=== PATIENT | female | born 1970 | race Caucasian/White ===

== ENCOUNTER 2021-04-15 09:39 | Outpatient (REF) | payer BC, SELFPAY ==
--- NOTE | ~2021-04-15 | MM_ITS ---
EXAMINATION: MM SCREENING DIGITAL BREAST TOMOSYNTHESIS, BILATERAL CLINICAL INFORMATION: Screening. Asymptomatic. The lifetime risk of breast cancer based on the Tyrer-Cuzick Model is 7.7%. COMPARISON: Mammography: May 10, 2019 and May 19, 2012 TECHNIQUE: Digital breast tomosynthesis is performed in both the craniocaudal and mediolateral oblique views along with computer-aided detection (CAD). Synthesized 2D images are generated from the tomosynthesis. FINDINGS: The breasts are extremely dense, which lowers the sensitivity of mammography (ACR BI-RADS breast composition Category d). There are no significant masses, abnormal calcifications, or other abnormalities. MM/MM tomosynthesis screening BI IMPRESSION: There are no significant changes from prior study. ASSESSMENT: BI-RADS 1: Negative RECOMMENDATION: Routine annual mammography screening. This patient's information was entered into a reminder system with a target due date for their next mammogram.
== END 2021-04-15 09:40 | disposition home or self-care (01) ==
LOC: HO.MAMMO 09:39
PROVIDERS: PCP Internal Medicine; Visit Provider Internal Medicine
DX: Z12.31 Encounter for screening mammogram for malignant neoplasm of breast (principal)
CPT/HCPCS: 77063; 77067

== ENCOUNTER 2021-05-27 07:45 | Outpatient (REF) | payer BC, SELFPAY ==
[2021-05-27 10:24] LABS: MANUAL DIFF FLAG NO
[2021-05-27 10:32] LABS: Basophils Percent Auto 0.3 % (0-2); Eosinophils Absolute Auto 0.6 X10*3/uL (0.0-0.4); Eosinophils Percent Auto 8.6 % (0-4); Hematocrit 44.3 % (37-47); Hemoglobin 14.4 g/dl (12.0-16.0); Imm Gran Abs Auto 0.02 X10*3/uL (0.00-0.03); Imm Gran Pct Auto 0.3 % (0.0-0.4); Lymphocytes Absolute Auto 2.7 X10*3/uL (1.2-4.9); Lymphocytes Percent Auto 41.1 % (20-40); Mean Corpuscular HGB Conc 32.5 g/dl (31.0-35.0); Mean Corpuscular Hemoglobin 29.6 pg (27.0-33.0); Mean Corpuscular Volume 91.2 fL (80-98); Mean Platelet Volume 10.4 fL (9.4-12.3); Monocytes Absolute Auto 0.7 X10*3/uL (0.1-1.2); Monocytes Percent Auto 10.7 % (2-11); Neutrophils Absolute Auto 2.6 X10*3/uL (2.0-8.3); Platelet Count 244 X10*3/uL (160-400); Red Blood Count 4.86 X10*6/uL (4.20-5.50); Red Cell Distribution Width 12.2 % (11.0-16.0); White Blood Count 6.6 X10*3/uL (4.8-10.8)
[2021-05-27 11:28] LABS: Alanine Aminotransferase 21 U/L (0-31); Albumin Level 4.5 g/dL (3.5-5.0); Alkaline Phosphatase 100 U/L (39-117); Anion Gap 13 (12-20); Aspartate Amino Transferase 24 U/L (5-31); Bilirubin Total 0.2 mg/dL (0.0-1.0); Blood Urea Nitrogen 11 mg/dL (9-16); Calcium 9.5 mg/dL (8.4-10.2); Carbon Dioxide 27 mmol/L (22-29); Chloride 104 mmol/L (96-108); Cholesterol 225 mg/dL; Estimated Glomerular Filt Rate > 60; Glucose Fasting 89 mg/dL (60-99); HDL Cholesterol 49 mg/dL; LDL Cholesterol Calculated 160 mg/dl; Potassium 4.3 mmol/L (3.3-5.1); Sodium 140 mmol/L (135-145); Total Protein 7.8 g/dL (6.5-8.0); Triglycerides 81 mg/dL
[2021-05-27 11:42] LABS: Thyroid Stimulating Hormone 0.92 uIU/mL (0.32-4.0)
== END 2021-05-27 07:46 | disposition home or self-care (01) ==
LOC: HO.WFDLDS 07:45
PROVIDERS: Visit Provider Internal Medicine
DX: Z00.00 Encounter for general adult medical examination without abnormal findings (principal); E11.9 Type 2 diabetes mellitus without complications; E03.9 Hypothyroidism, unspecified
CPT/HCPCS: 36415; 80053; 80061; 84443; 85025

== ENCOUNTER → 2022-02-25 15:08 | Outpatient (BNVA) | payer BC, SELFPAY | PROVIDERS: PCP Internal Medicine; Visit Provider Psychiatry & Neurology Neurology | DX: G43.709 Chronic migraine without aura, not intractable, without status migrainosus (principal); R42 Dizziness and giddiness | CPT/HCPCS: 64615; J0585 ==

== ENCOUNTER 2022-04-28 09:33 | Outpatient (REF) | payer OTHER, BC, SELFPAY ==
--- NOTE | ~2022-04-28 | MM_ITS ---
EXAMINATION: MM SCREENING DIGITAL BREAST TOMOSYNTHESIS, BILATERAL CLINICAL INFORMATION: Screening. Asymptomatic. The lifetime risk of breast cancer based on the Tyrer-Cuzick Model is 10%. COMPARISON: Mammography: 04/15/2021, 05/10/2019, 05/19/2012 TECHNIQUE: Digital breast tomosynthesis is performed in both the craniocaudal and mediolateral oblique views along with computer-aided detection (CAD). Synthesized 2D images are generated from the tomosynthesis. Additional right CC view is provided. FINDINGS: The breasts are heterogeneously dense, which may obscure small masses (ACR BI-RADS breast composition Category c). There are no significant masses, abnormal calcifications, or other abnormalities. No developing density or interval architectural abnormality. No significant changes. MM/MM tomosynthesis screening BI IMPRESSION: No mammographic evidence of malignancy. ASSESSMENT: BI-RADS 1: Negative RECOMMENDATION: Routine annual mammography screening. This patient's information was entered into a reminder system with a target due date for their next mammogram.
== END 2022-04-28 09:34 | disposition home or self-care (01) ==
LOC: HO.MAMMO 09:33
PROVIDERS: Visit Provider Internal Medicine
DX: Z12.31 Encounter for screening mammogram for malignant neoplasm of breast (principal)
CPT/HCPCS: 77063; 77067

== ENCOUNTER 2022-05-16 07:45 | Outpatient (REF) | payer OTHER, BC, SELFPAY ==
[2022-05-16 11:10] LABS: MANUAL DIFF FLAG NO
[2022-05-16 11:19] LABS: Basophils Percent Auto 0.3 % (0-2); Eosinophils Absolute Auto 0.4 X10*3/uL (0.0-0.4); Eosinophils Percent Auto 6.7 % (0-4); Hematocrit 43.1 % (37.0-47.0); Hemoglobin 14.1 g/dl (12.0-16.0); Imm Gran Abs Auto 0.01 X10*3/uL (0.00-0.03); Imm Gran Pct Auto 0.2 % (0.0-0.4); Lymphocytes Absolute Auto 2.5 X10*3/uL (1.2-4.9); Lymphocytes Percent Auto 38.9 % (20-40); Mean Corpuscular HGB Conc 32.7 g/dl (31.0-35.0); Mean Corpuscular Hemoglobin 29.6 pg (27.0-33.0); Mean Corpuscular Volume 90.4 fL (80.0-98.0); Mean Platelet Volume 10.4 fL (9.4-12.3); Monocytes Absolute Auto 0.7 X10*3/uL (0.1-1.2); Monocytes Percent Auto 11.2 % (2-11); Neutrophils Absolute Auto 2.8 x10*3/uL (2.0-8.3); Neutrophils Percent Auto 42.7 % (45-73); Platelet Count 242 X10*3/uL (160-400); Red Blood Count 4.77 X10*6/uL (4.20-5.50); Red Cell Distribution Width 12.2 % (11.0-16.0); White Blood Count 6.5 X10*3/uL (4.8-10.8)
[2022-05-16 11:49] LABS: Alanine Aminotransferase 25 U/L (0-31); Albumin Level 4.6 g/dL (3.5-5.0); Alkaline Phosphatase 113 U/L (39-117); Anion Gap 14 (12-20); Aspartate Amino Transferase 26 U/L (5-31); Bilirubin Total 0.5 mg/dL (0.0-1.0); Blood Urea Nitrogen 11 mg/dL (9-16); Calcium 9.2 mg/dL (8.4-10.2); Carbon Dioxide 27 mmol/L (22-29); Chloride 104 mmol/L (96-108); Cholesterol 239 mg/dL; Estimated Glomerular Filt Rate > 60; Glucose Fasting 87 mg/dL (60-99); HDL Cholesterol 54 mg/dL; LDL Cholesterol Calculated 169 mg/dl; Potassium 4.1 mmol/L (3.3-5.1); Sodium 141 mmol/L (135-145); Total Protein 7.9 g/dL (6.5-8.0); Triglycerides 82 mg/dL
[2022-05-16 12:10] LABS: Thyroid Stimulating Hormone 1.15 uIU/mL (0.32-4.0)
== END 2022-05-16 07:46 | disposition home or self-care (01) ==
LOC: HO.WFDLDS 07:45
PROVIDERS: Visit Provider Internal Medicine
DX: I10 Essential (primary) hypertension (principal); E03.9 Hypothyroidism, unspecified; E78.5 Hyperlipidemia, unspecified; Z13.0 Encounter for screening for diseases of the blood and blood-forming organs and certain disorders involving the immune mechanism
CPT/HCPCS: 36415; 80053; 80061; 84443; 85025

== ENCOUNTER → 2022-06-24 14:51 | Outpatient (BNVA) | payer OTHER, SELFPAY | PROVIDERS: PCP Internal Medicine; Visit Provider Psychiatry & Neurology Neurology | DX: G43.709 Chronic migraine without aura, not intractable, without status migrainosus (principal); G43.119 Migraine with aura, intractable, without status migrainosus; R42 Dizziness and giddiness | CPT/HCPCS: 64615; 99211; J0585 ==

== ENCOUNTER 2022-07-23 14:49 | Outpatient (REF) | payer BC, SELFPAY ==
[2022-07-23 16:08] LABS: Influenza A PCR NEGATIVE (Negative); Influenza B PCR NEGATIVE (Negative); Resp Syncy Virus RNA Qual PCR NEGATIVE (Negative); SARS COV2 PCR INHOUSE POSITIVE (Negative)
== END 2022-07-23 14:50 | disposition home or self-care (01) ==
LOC: HO.LNP 14:49
PROVIDERS: Visit Provider Nurse Practitioner Family
DX: J06.9 Acute upper respiratory infection, unspecified (principal); Z20.822 Contact with and (suspected) exposure to COVID-19
CPT/HCPCS: 0241U

== ENCOUNTER → 2022-10-28 15:05 | Outpatient (BNVA) | payer BC, SELFPAY | PROVIDERS: PCP Internal Medicine; Visit Provider Psychiatry & Neurology Neurology | DX: G43.119 Migraine with aura, intractable, without status migrainosus (principal); R42 Dizziness and giddiness; M62.89 Other specified disorders of muscle | CPT/HCPCS: 64615; J0585 ==

== ENCOUNTER 2022-12-08 13:03 | Outpatient (REF) | payer BC, SELFPAY ==
[2022-12-13 18:53] LABS: Glutamic acid decarboxylase Ab <5 IU/mL (<5)
== END 2022-12-08 13:04 | disposition home or self-care (01) ==
LOC: HO.LAB 13:03
PROVIDERS: PCP Internal Medicine; Visit Provider Psychiatry & Neurology Neurology
DX: M62.89 Other specified disorders of muscle (principal)
CPT/HCPCS: 83520; 86341

== ENCOUNTER → 2023-01-27 15:15 | Outpatient (BNVA) | payer BC, SELFPAY | PROVIDERS: PCP Internal Medicine; Visit Provider Psychiatry & Neurology Neurology | DX: G43.709 Chronic migraine without aura, not intractable, without status migrainosus (principal); G43.119 Migraine with aura, intractable, without status migrainosus; M62.89 Other specified disorders of muscle; R42 Dizziness and giddiness | CPT/HCPCS: 64615; J0585 ==

== ENCOUNTER 2023-04-24 07:52 | Outpatient (REF) | payer BC, SELFPAY ==
[2023-04-24 11:40] LABS: MANUAL DIFF FLAG NO
[2023-04-24 11:53] LABS: Basophils Percent Auto 0.3 % (0-2); Eosinophils Absolute Auto 0.3 X10*3/uL (0.0-0.4); Eosinophils Percent Auto 5.4 % (0-4); Hematocrit 43.6 % (37.0-47.0); Imm Gran Abs Auto 0.02 X10*3/uL (0.00-0.03); Imm Gran Pct Auto 0.3 % (0.0-0.4); Lymphocytes Absolute Auto 2.4 X10*3/uL (1.2-4.9); Mean Corpuscular HGB Conc 32.1 g/dl (31.0-35.0); Mean Corpuscular Hemoglobin 29.9 pg (27.0-33.0); Mean Platelet Volume 10.5 fL (9.4-12.3); Monocytes Absolute Auto 0.7 X10*3/uL (0.1-1.2); Monocytes Percent Auto 11.1 % (2-11); Neutrophils Absolute Auto 2.6 x10*3/uL (2.0-8.3); Neutrophils Percent Auto 42.9 % (45-73); Platelet Count 232 X10*3/uL (160-400); Red Blood Count 4.69 X10*6/uL (4.20-5.50); Red Cell Distribution Width 12.1 % (11.0-16.0)
[2023-04-24 12:33] LABS: Alanine Aminotransferase 26 U/L (0-31); Albumin Level 4.4 g/dL (3.5-5.0); Alkaline Phosphatase 95 U/L (39-117); Anion Gap 12 (12-20); Aspartate Amino Transferase 27 U/L (5-31); Bilirubin Total 0.6 mg/dL (0.0-1.0); Blood Urea Nitrogen 14 mg/dL (9-16); Calcium 9.4 mg/dL (8.4-10.2); Carbon Dioxide 28 mmol/L (22-29); Chloride 104 mmol/L (96-108); Cholesterol 241 mg/dL; Estimated Glomerular Filt Rate > 60; Glucose Fasting 81 mg/dL (60-99); HDL Cholesterol 57 mg/dL; LDL Cholesterol Calculated 167 mg/dl; Potassium 3.8 mmol/L (3.3-5.1); Sodium 140 mmol/L (135-145); Total Protein 7.8 g/dL (6.5-8.0); Triglycerides 87 mg/dL
[2023-04-24 12:50] LABS: Thyroid Stimulating Hormone 1.13 uIU/mL (0.32-4.0)
== END 2023-04-24 07:53 | disposition home or self-care (01) ==
LOC: HO.WFDLDS 07:52
PROVIDERS: Visit Provider Internal Medicine
DX: D64.9 Anemia, unspecified (principal); E03.9 Hypothyroidism, unspecified; E78.5 Hyperlipidemia, unspecified; N28.9 Disorder of kidney and ureter, unspecified
CPT/HCPCS: 36415; 80053; 80061; 84443; 85025

== ENCOUNTER → 2023-04-30 11:03 | Outpatient (REF) | payer BC, SELFPAY ==
--- NOTE | 2023-04-30 11:07 | ECG_ITS ---
Test Reason : r00.2 Blood Pressure : / mmHG Vent. Rate : 079 BPM Atrial Rate : 079 BPM P-R Int : 128 ms QRS Dur : 080 ms QT Int : 374 ms P-R-T Axes : 069 061 073 degrees QTc Int : 428 ms Normal sinus rhythm Possible Left atrial enlargement Borderline ECG No previous ECGs available Referred By: Danie Ross Electronically Signed By:GORDON MALONE MD
== END ==
LOC: HO.CARD 11:03
PROVIDERS: PCP Internal Medicine; Visit Provider Internal Medicine
DX: R00.2 Palpitations (principal)
CPT/HCPCS: 93005

== ENCOUNTER → 2023-04-30 11:07 | Outpatient (BNV) | payer BC, SELFPAY | PROVIDERS: PCP Internal Medicine; Visit Provider Internal Medicine Cardiovascular Disease | DX: R00.2 Palpitations (principal) | CPT/HCPCS: 93010 ==

== ENCOUNTER 2023-05-04 09:27 | Outpatient (REF) | payer BC, SELFPAY ==
--- NOTE | ~2023-05-04 | MM_ITS ---
EXAMINATION: MM SCREENING DIGITAL BREAST TOMOSYNTHESIS, BILATERAL CLINICAL INFORMATION: Screening. Asymptomatic. The lifetime risk of breast cancer based on the Tyrer-Cuzick Model is 9.7%. COMPARISON: Mammography: This study is compared with prior exams dating back to 2019. TECHNIQUE: Digital breast tomosynthesis is performed in both the craniocaudal and mediolateral oblique views along with computer-aided detection (CAD). Synthesized 2D images are generated from the tomosynthesis. FINDINGS: The breasts are heterogeneously dense, which may obscure small masses (ACR BI-RADS breast composition Category c). There are no significant masses, abnormal calcifications, or other abnormalities. MM/MM tomosynthesis screening BI IMPRESSION: No mammographic evidence of malignancy. ASSESSMENT: BI-RADS BI-RADS 1 - Negative RECOMMENDATION: Routine annual mammography screening. 1 year F/U This examination should not preclude the clinical evaluation of a suspicious palpable abnormality. This patient's information was entered into a reminder system with a target due date for their next mammogram.
== END 2023-05-04 09:28 | disposition home or self-care (01) ==
LOC: HO.MAMMO 09:27
PROVIDERS: PCP Internal Medicine; Visit Provider Internal Medicine
DX: Z12.31 Encounter for screening mammogram for malignant neoplasm of breast (principal)
CPT/HCPCS: 77063; 77067

== ENCOUNTER → 2023-05-04 09:45 | Outpatient (BNV) | payer BC, SELFPAY | PROVIDERS: PCP Internal Medicine; Visit Provider Radiology Diagnostic Radiology | DX: Z12.31 Encounter for screening mammogram for malignant neoplasm of breast (principal) | CPT/HCPCS: 77063; 77067 ==

== ENCOUNTER 2023-05-06 12:15 | Outpatient (AMB) | payer BC, SELFPAY ==
--- NOTE | 2023-05-06 12:40 | A.OFFVIS_ITS ---
Intake Vital Signs 05/06/23 12:44 BP 124/72 Blood Pressure Location Rt brachial Position Sitting Pulse 86 Pulse Source Pulse Oximeter Pulse Oximetry (%) 95 Oxygen Delivery Method Room Air Intake Visit Reasons: Botox-confirmed Intake Note: Patient presents for botox injetion Allergies amoxicillin [AMOXICILLIN] Allergy (Severe, Verified 05/06/23 12:42) Anaphylaxis clindamycin [CLINDAMYCIN] Allergy (Unknown, Verified 05/06/23 12:42) UNKNOWN erythromycin base [ERYTHROMYCIN BASE] Allergy (Unknown, Verified 05/06/23 12:42) UNKNOWN NSAIDS (Non-Steroidal Anti-Inflamma Adverse Reaction (Intermediate, Verified 05/06/23 12:42) nausea, GI pain ciprofloxacin [Cipro] Adverse Reaction (Unknown, Verified 05/06/23 12:42) Diarrhea ibuprofen Adverse Reaction (Unknown, Verified 05/06/23 12:42) pain nitrofurantoin Adverse Reaction (Unknown, Verified 05/06/23 12:42) lightheaded, sick Sulfa (Sulfonamide Antibiotics) Adverse Reaction (Verified 05/06/23 12:42) Nausea and Vomiting Medication List - Last Reconciled 05/06/23 by Beena Bergman MD betamethasone dipropionate 0.05% 1 appl topical BID PRN nrzqjcjpcc-mccxbeklwkahi-taik 50-325-40 mg 1 tab PO Q4H PRN cyclobenzaprine 10 mg PO BID cyclosporine 0.05% (Restasis) drps ophthalmic (eye) estradiol 1 patch transdermal 2XW meclizine 25 mg PO DAILY PRN 30 days onabotulinumtoxinA (Botox) 200 units IM ONCE 3 months sumatriptan succinate (Imitrex) 50 mg PO ONCE PRN zolpidem 10 mg PO BEDTIME PRN HPI HPI Comments History of Present Illness Details ? 52y/o female comes for treatment of migraine with botox . Since starting on Botox the patient has had more than 50% reduction in the number of migraine days . ??? Most frequent reported adverse reactions following injection of botox for chronic migraine include neck pain (9%), headache(5%), eyelid ptosis(4%), migraine(4%), muscular weakness(4%), musculuskeletal stiffness(4%), bronchitis(3%), injection site pain (3%), musculoskeletal pain(3%), myalgia(3%), facial paresis(2%), HTN(2%) and muscle spasms(2%) were discussed in detail. ??? Botulinum toxin typeA 200units Lot no C [id number] expiration Sep 2025 was diluted with 4 cc of normal saline . ??? Muscles injected- ??? Frontalis 4 sites ? Asbestos Siding Mechanic- 2 sites ??? Temporalis- 6 sites ??? Occipitalis- 2 sites ? 5 units each ??? Trapezius - right 30 units ??? Left 30 units ??? left levator 40units units right levator 25 units right splenius 25 units ??? Total use- 200units ??? [facility] Medical History Migraine headache Spasmodic torticollis Vertigo Surgical History History of endometrial ablation Family History Mother COPD (chronic obstructive pulmonary disease) Father No problems noted. Other Substance use disorder Social History Housing: House Alcohol intake: never Patient Tobacco Use Status: Never used Tobacco e-Cigarette/Vaping Use: Never Used Second Hand Smoke Exposure: No service: No Current occupational status: employed Cognitive needs: No Hearing needs: No Vision needs: No Physical Exam Vital Signs: Last Vital Signs Pulse 86 05/06/23 12:44 BP 124/72 05/06/23 12:44 Pulse Ox 95 05/06/23 12:44 Oxygen Delivery Method Room Air 05/06/23 12:44 Const General: cooperative, healthy appearing and comfortable Nutritional Appearance: average body habitus Orientation/consciousness: patient oriented x3 Eyes Pupils: Equal, round and reactive pupils present Neck Other: antecollis Neuro General: patient oriented x3, gait normal, tone normal and moves all extremities Cranial nerves: Yes CN's II-XII intact bilaterally, Yes Facial sensation intact/muscles of mastication intact and Yes Equal, round and reactive pupils present Office Procedures Botulinum toxin Injection 93807 - Migraine Procedure code (CPT) selection complete Office Meds onabotulinumtoxinA Performing Provider: Beena Bergman MD Administered by: Beena Bergman MD on 05/06/23 13:13 Dose Route Admin Location Lot Number Expiration Date NDC Wine Pasteurizer 200 unit subcut [id number] 09/18/25 2690-0449-42 ALLERGAN/BOTOX Comments: see HPI Assessment & Plan Assessment & Plan (1) Chronic migraine without aura: Code(s): G43.709 - Chronic migraine without aura, not intractable, without status migrainosus (2) Migraine with aura, intractable, without status migrainosus: Comment: she has more than 50% reduction in migraines since starting treatment with botox Code(s): G43.119 - Migraine with aura, intractable, without status migrainosus (3) Spasmodic torticollis: Code(s): G24.3 - Spasmodic torticollis Plan Patient tolerated the procedure well she will call with any side effects Increase Botox dose to 300 units to include neck muscle for spasmodic torticollis ANti JESSICA and Ampiphysin antibody levels- normal Orders: Orders AMB Botulinum toxin Injection - Patient Supplied Today G43.709 - Chronic migraine without aura, not intractable, without status migrainosus Coding Level of Care Code Est Pt Level 1 (96738) Diagnoses Chronic migraine without aura G43.709 Migraine with aura, intractable, without status migrainosus G43.119 Spasmodic torticollis G24.3 CPT Codes Botox Injection - Botox 3: 76669 - Migraine ([id number])
[2023-05-06 12:44] VITALS: BP 124/72; PULSE 86; O2SAT 95
== END 2023-05-06 13:13 | disposition home or self-care (01) ==
PROVIDERS: Visit Provider Psychiatry & Neurology Neurology
DX: G43.709 Chronic migraine without aura, not intractable, without status migrainosus (principal); G43.119 Migraine with aura, intractable, without status migrainosus; G24.3 Spasmodic torticollis
CPT/HCPCS: 64615

== ENCOUNTER → 2023-05-06 12:15 | Outpatient (BNVA) | payer BC, SELFPAY | PROVIDERS: Visit Provider Psychiatry & Neurology Neurology | DX: G43.709 Chronic migraine without aura, not intractable, without status migrainosus (principal); G24.3 Spasmodic torticollis; Z79.899 Other long term (current) drug therapy | CPT/HCPCS: 64615; 99211; J0585 ==

== ENCOUNTER 2023-05-13 09:58 | Outpatient (AMB) | payer BC, SELFPAY ==
--- NOTE | 2023-05-13 10:00 | MHC.PC.OV ---
Vital Signs 05/13/23 10:01 Height 5 ft 3 in Weight 104 lb 4 oz BMI 18.5 BP 122/70 Blood Pressure Location Lt brachial Position Sitting Pulse 76 Pulse Source Pulse Oximeter Pulse Oximetry (%) 98 Intake Visit Reasons: Physical Exam Intake Note: pt is here for physical exam Home Care Associate Required: No Accompanied by: Self / Same As Patient Allergies amoxicillin [AMOXICILLIN] Allergy (Severe, Verified 05/13/23 10:00) Anaphylaxis clindamycin [CLINDAMYCIN] Allergy (Unknown, Verified 05/13/23 10:00) UNKNOWN erythromycin base [ERYTHROMYCIN BASE] Allergy (Unknown, Verified 05/13/23 10:00) UNKNOWN NSAIDS (Non-Steroidal Anti-Inflamma Adverse Reaction (Intermediate, Verified 05/13/23 10:00) nausea, GI pain ciprofloxacin [Cipro] Adverse Reaction (Unknown, Verified 05/13/23 10:00) Diarrhea ibuprofen Adverse Reaction (Unknown, Verified 05/13/23 10:00) pain nitrofurantoin Adverse Reaction (Unknown, Verified 05/13/23 10:00) lightheaded, sick Sulfa (Sulfonamide Antibiotics) Adverse Reaction (Verified 05/13/23 10:00) Nausea and Vomiting Medication List - Last Reconciled 05/13/23 by Danie Ross MD betamethasone dipropionate 0.05% 1 appl topical BID PRN dqvjjukhdt-movcbdeipasmj-zdig 50-325-40 mg 1 tab PO Q4H PRN cyclobenzaprine 10 mg PO BID cyclosporine 0.05% (Restasis) drps ophthalmic (eye) estradiol 1 patch transdermal 2XW meclizine 25 mg PO DAILY PRN 30 days onabotulinumtoxinA (Botox) 200 units IM ONCE 3 months sumatriptan succinate (Imitrex) 50 mg PO ONCE PRN zolpidem 10 mg PO BEDTIME PRN Tobacco use date assessed: 04/23/23 Dental Screening Dental Screen Date: 05/13/23 Did you have a dental visit in the last 12 months?: Yes Did you have a dental problem in the last 6 months where you did not have access to dental care?: No Was dental information given to patient?: Patient has dentist HPI Physical Exam HPI Details healthy; occ migraine PFSH Medical History Migraine headache Spasmodic torticollis Vertigo Surgical History History of endometrial ablation Family History Mother COPD (chronic obstructive pulmonary disease) Father No problems noted. Other Substance use disorder Social History Housing: House Alcohol intake: never Patient Tobacco Use Status: Never used Tobacco e-Cigarette/Vaping Use: Never Used Second Hand Smoke Exposure: No service: No Current occupational status: employed Cognitive needs: No Hearing needs: No Vision needs: No Questionnaire Thrive Questionnaire Date Thrive assessed: 04/23/23 JESSICA-7 AMB Questionnaire JESSICA-7 Date JESSICA - 7 assessed: 04/23/23 Source: Developed by Drs. Nahun Jett, Cara Marr, Moreno Reich and colleagues, with an educational gelacio from [employer]. Review of Systems Const Denies chills, Denies fatigue, Denies headache(s) and Denies weight loss Eyes Denies change in vision, Denies diplopia and Denies eye pain ENT Denies vertigo, Denies dizziness, Denies headache(s) and Denies nasal discharge Card Denies chest pain, Denies rapid heart rate and Denies dyspnea on exertion Resp Denies chest congestion, Denies cough, Denies pain with cough and Denies dyspnea on exertion GI Denies abdominal pain, Denies hematochezia and Denies change in bowel habits Musc Denies myalgias, Denies arthralgias and Denies joint swelling Skin/Breast Denies lesions and Denies unusual bruising Neuro Denies vertigo, Denies dizziness, Denies headache(s) and Denies focal weakness Endo Denies fatigue Physical exam (Primary Care) Vital Signs: Last Vital Signs Pulse 76 05/13/23 10:01 BP 122/70 05/13/23 10:01 Pulse Ox 98 05/13/23 10:01 BMI result Body Mass Index 18.5 Tobacco/Smoking Status: Tobacco use Status Tobacco use date assessed 04/23/23 05/13/23 10:01 Patient Tobacco Use Status Never used Tobacco 05/13/23 10:01 e-Cigarette/Vaping Use Never Used 05/13/23 10:01 Thrive Assessment: Date of Thrive Assessment Date Thrive assessed 04/23/23 05/13/23 10:01 Const General: cooperative, healthy appearing and no acute distress Orientation/consciousness: oriented to person, oriented to place and oriented to time HENMT Head: Yes normal to inspection, Yes normocephalic and Yes atraumatic Mouth: Normal oral and palatal mucosa present and tongue normal Throat: Yes posterior oropharynx normal and Yes uvula midline Eyes General: appearance normal, both eyes and all related structures Neck Neck: Yes normal visual inspection, Yes full ROM and Yes no lymphadenopathy Thyroid: Thyroid normal Carotids: normal carotid upstroke Chest Chest palpation & inspection: normal inspection of the chest Resp Effort & Inspection: normal respiratory effort and able to speak in complete sentences Auscultation: clear to auscultation bilaterally Cardio Jugular venous distension: no JVD Palpation: normal PMI Rate: regular rate Rhythm: regular rhythm Heart sounds: S1 normal heart sound present and S2 normal heart sound present GI Inspection: Yes normal to inspection Palpation (GI): Soft to palpation and No hepatosplenomegaly present Auscultation: normal bowel sounds General: Yes no CVA tenderness Back/Spine/Pelvis Back: no CVA tenderness Skin General skin exam: no rashes or lesions noted Neuro General: oriented to person, oriented to place and oriented to time Extrem General: Yes normal to inspection and Yes full ROM Assessment and Plan Assessment & Plan (1) Physical exam: Code(s): Z00.00 - Encounter for general adult medical examination without abnormal findings Plan: stable (2) Chronic migraine without aura: Code(s): G43.709 - Chronic migraine without aura, not intractable, without status migrainosus Plan: same rx Orders: Referrals Cologuard Test Z12.11 - Encounter for screening for malignant neoplasm of colon, Z12.12 - Encounter for screening for malignant neoplasm of rectum Coding Level of Care Code Est Pt Prev Care 40-64y(25868) Diagnoses Physical exam Z00.00 Chronic migraine without aura G43.709
[2023-05-13 10:01] VITALS: BP 122/70; PULSE 76; O2SAT 98; BMI 18.5
== END 2023-05-13 10:24 | disposition home or self-care (01) ==
PROVIDERS: PCP Internal Medicine; Visit Provider Internal Medicine
DX: Z00.00 Encounter for general adult medical examination without abnormal findings (principal); G43.709 Chronic migraine without aura, not intractable, without status migrainosus
CPT/HCPCS: 99396

== ENCOUNTER 2023-06-09 08:13 | Outpatient (AMB) | payer BC, SELFPAY ==
--- NOTE | 2023-06-09 08:17 | A.OFFVIS_ITS ---
Intake Vital Signs 06/09/23 08:18 Height 5 ft 3 in Weight 103 lb BMI 18.2 BP 142/77 H Blood Pressure Location Lt brachial Position Sitting Pulse 100 Intake Visit Reasons: Fecal abnormalities Intake Note: Patient new consult for fecal abnormalities. Patient cc: constipation on and off, positive cologuard and patient is refusing the colonoscopy procedures. 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 Required: No Accompanied by: Self / Same As Patient Allergies amoxicillin [AMOXICILLIN] Allergy (Severe, Verified 06/09/23 08:16) Anaphylaxis clindamycin [CLINDAMYCIN] Allergy (Unknown, Verified 06/09/23 08:16) UNKNOWN erythromycin base [ERYTHROMYCIN BASE] Allergy (Unknown, Verified 06/09/23 08:16) UNKNOWN NSAIDS (Non-Steroidal Anti-Inflamma Adverse Reaction (Intermediate, Verified 06/09/23 08:16) nausea, GI pain ciprofloxacin [Cipro] Adverse Reaction (Unknown, Verified 06/09/23 08:16) Diarrhea ibuprofen Adverse Reaction (Unknown, Verified 06/09/23 08:16) pain nitrofurantoin Adverse Reaction (Unknown, Verified 06/09/23 08:16) lightheaded, sick Sulfa (Sulfonamide Antibiotics) Adverse Reaction (Verified 06/09/23 08:16) Nausea and Vomiting Medication List - Last Reconciled 06/09/23 by Bea Lee PA-C betamethasone dipropionate 0.05% 1 appl topical BID PRN rffefmymbb-dwmibftmokyvr-devl 50-325-40 mg 1 tab PO Q4H PRN cyclobenzaprine 10 mg PO BID cyclosporine 0.05% (Restasis) drps ophthalmic (eye) estradiol 1 patch transdermal 2XW meclizine 25 mg PO DAILY PRN 30 days onabotulinumtoxinA (Botox) 200 units IM ONCE 3 months onabotulinumtoxinA (Botox) to be injected by physician to neck muscles q 90 days sumatriptan succinate (Imitrex) 50 mg PO ONCE PRN zolpidem 10 mg PO BEDTIME PRN HPI HPI Comments History of Present Illness Details A 52 y/o female referred with positive cologuard- She says she will not - fast she cannot- and won't- she saw her have a difficult time with fasting Appetite is good Bowels - only go once a week , but thats normal for her- She says wheat is not really wheat- so thats an issue She uses miralax - with good response She go on to say- she does not always have a BR at her convience She has a muscle issue- She follows with specialist in [place]- she does not like the way she is followed-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 Other Substance use disorder Social History Housing: House Alcohol intake: never Patient Tobacco Use Status: Never used Tobacco e-Cigarette/Vaping Use: Never Used Second Hand Smoke Exposure: No service: No Current occupational status: employed Cognitive needs: No Hearing needs: No Vision needs: No Review of Systems Const All systems reviewed & are unremarkable except as noted in HPI and below ENT Reports dizziness and Reports neck pain Card Denies chest pain and Denies dyspnea Resp Denies dyspnea GI Reports abdominal pain, Reports bloating, Denies hematochezia, Reports c onstipation, Reports GI cramping, Denies nausea and Denies vomiting Reports no additional complaints Musc Reports back pain, Reports myalgias, Reports atrophy, Reports arthralgias, Reports muscle cramps, Reports muscle weakness and Reports neck pain Neuro Reports dizziness Physical Exam Vital Signs: Last Vital Signs Pulse 100 06/09/23 08:18 BP 142/77 H 06/09/23 08:18 BMI result Body Mass Index 18.2 Const General: comfortable and no acute distress Orientation/consciousness: patient oriented x3 Limitations: no limitations Eyes Sclerae: sclerae normal Resp Effort & Inspection: normal respiratory effort and able to speak in complete sentences Auscultation: clear to auscultation bilaterally, no rales, no rhonchi and no wheezes Cardio Rate: regular rate Rhythm: regular rhythm Heart sounds: S1 normal heart sound present and S2 normal heart sound present GI Palpation (GI): Soft to palpation, nontender and Guarding due to palpation present (GI) Auscultation: normal bowel sounds Skin General skin exam: no rashes or lesions noted Neuro General: patient oriented x3 Extrem General: Yes full ROM Psych Speech and movement: Clear speech present Affect: Indifferent affect present Attitude: Guarded attititude/behavior present Results Reviewed Results Reviewed: Reviewed labs Assessment & Plan Assessment & Plan (1) Positive colorectal cancer screening using Cologuard test: Comment: Recommend colonoscopy-after much discussion though very reluctant she agrees to proceed Discussed importance follow -reassure no malignant y Code(s): R19.5 - Other fecal abnormalities Plan: Colonoscopy MiraLax Gatorade blood Plan Colonoscopy-MG split prep She has specific- times/ etc- Orders: Orders Colonoscopy - GI Use Only Today R19.5 - Other fecal abnormalities Medications: New bisacodyl (Dulcolax (bisacodyl)) Take 4 tablets by mouth at 12:00pm the day before your procedure. 20 mg (4 x 5 mg) PO ONCE 4 tabs 0RF colonoscopy prep 1 day Z12.11 - Encounter for screening for malignant neoplasm of colon polyethylene glycol 3350 (Miralax) Take as directed by mouth the day before your procedure. 238 grams PO ONCE PRN 238 grams 0RF laxative effect 1 day Patient Instructions: 52-year-old female positive Cologuard, reluctant to colonoscopy due to procedure prep with fasting Detailed discussion discussed indication, rare risks, need for escorted due to anesthesia MiraLax Gatorade split Literature given Encouraged to call questions or concerns Reinforced importance of follow Appreciate the opportunity assist in the care of the patient Coding Level of Care Code New Pt Level 3 (76887) Diagnoses Positive colorectal cancer screening using Cologuard test R19.5 Time Spent (min) 40
[2023-06-09 08:18] VITALS: BP 142/77; PULSE 100; BMI 18.2
--- NOTE | 2023-06-09 08:33 | A.OFFVIS_ITS ---
Intake Vital Signs 06/09/23 08:18 Height 5 ft 3 in Weight 103 lb BMI 18.2 BP 142/77 H Blood Pressure Location Lt brachial Position Sitting Pulse 100 Intake Visit Reasons: Fecal abnormalities Intake Note: Patient new consult for fecal abnormalities. Patient cc: Constipation and positive cologuard. Denies any other GI issues. 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 Required: No Accompanied by: Self / Same As Patient Allergies amoxicillin [AMOXICILLIN] Allergy (Severe, Verified 06/09/23 08:16) Anaphylaxis clindamycin [CLINDAMYCIN] Allergy (Unknown, Verified 06/09/23 08:16) UNKNOWN erythromycin base [ERYTHROMYCIN BASE] Allergy (Unknown, Verified 06/09/23 08:16) UNKNOWN NSAIDS (Non-Steroidal Anti-Inflamma Adverse Reaction (Intermediate, Verified 06/09/23 08:16) nausea, GI pain ciprofloxacin [Cipro] Adverse Reaction (Unknown, Verified 06/09/23 08:16) Diarrhea ibuprofen Adverse Reaction (Unknown, Verified 06/09/23 08:16) pain nitrofurantoin Adverse Reaction (Unknown, Verified 06/09/23 08:16) lightheaded, sick Sulfa (Sulfonamide Antibiotics) Adverse Reaction (Verified 06/09/23 08:16) Nausea and Vomiting HPI HPI Comments History of Present Illness Details A 52 y/o female referred with positive cologuard- PFSH Medical History Migraine headache Spasmodic torticollis Vertigo Surgical History History of endometrial ablation Family History Mother COPD (chronic obstructive pulmonary disease) Father No problems noted. Other Substance use disorder Social History Housing: House Alcohol intake: never Patient Tobacco Use Status: Never used Tobacco e-Cigarette/Vaping Use: Never Used Second Hand Smoke Exposure: No service: No Current occupational status: employed Cognitive needs: No Hearing needs: No Vision needs: No Physical Exam Vital Signs: Last Vital Signs Pulse 100 06/09/23 08:18 BP 142/77 H 06/09/23 08:18 BMI result Body Mass Index 18.2 Coding Diagnoses
== END 2023-06-09 09:27 | disposition home or self-care (01) ==
LOC: HO.HGIW 08:13
PROVIDERS: PCP Internal Medicine; Visit Provider Physician Assistant
DX: R19.5 Other fecal abnormalities (principal)
CPT/HCPCS: 99203

== ENCOUNTER → 2023-06-09 08:13 | Outpatient (BNVA) | payer BC, SELFPAY | PROVIDERS: PCP Internal Medicine; Visit Provider Physician Assistant ==

== ENCOUNTER 2023-07-09 06:16 | Day surgery (SDC) | payer BC, SELFPAY ==
[2023-07-07 14:32] VITALS: BMI 18.2
--- NOTE | 2023-07-08 11:57 | HO.ANESPROP2 ---
Documented by User: Davina Marks NP 07/08/23 11:58 HPI - Anesthesia Eval Consult details Narrative: 52yo F for Colonoscopy PMFSH Active Problems Active Problems: All Active Problems (Updated 07/07/23 @ 14:27 by Willa Barnett RN) Positive colorectal cancer screening using Cologuard test (Acute) Intermittent palpitations (Acute) Muscle stiffness (Acute) Viral upper respiratory illness (Acute) Migraine with aura, intractable, without status migrainosus (Acute) Chronic migraine without aura (Acute) Physical exam (Acute) Spasmodic torticollis (Acute) Vertigo (Acute) Migraine headache (Acute) Past Medical History Medical History (Updated 07/09/23 @ 09:08 by Jeremi Bueno MD) Intermittent palpitations Spasmodic torticollis Vertigo Migraine headache Family History Family History Mother COPD (chronic obstructive pulmonary disease) Father No problems noted. Other Substance use disorder Surgical History Surgical History (Updated 07/07/23 @ 14:28 by Willa Barnett RN) History of esophagogastroduodenoscopy (EGD) History of endometrial ablation Social History Social History Housing: House Alcohol intake: never Patient Tobacco Use Status: Never used Tobacco e-Cigarette/Vaping Use: Never Used Second Hand Smoke Exposure: No service: No Current occupational status: employed Cognitive needs: No Hearing needs: No Vision needs: No Meds Allergies Allergy/AdvReac Type Severity Reaction Status Date / Time amoxicillin [AMOXICILLIN] Allergy Severe Anaphylaxis Verified 06/09/23 08:16 clindamycin [CLINDAMYCIN] Allergy Unknown UNKNOWN Verified 06/09/23 08:16 erythromycin base Allergy Unknown UNKNOWN Verified 06/09/23 08:16 [ERYTHROMYCIN BASE] ibuprofen AdvReac Intermediate pain Verified 07/07/23 14:30 nitrofurantoin AdvReac Intermediate lightheaded, Verified 07/07/23 14:30 sick NSAIDS (Non-Steroidal AdvReac Intermediate nausea, GI Verified 06/09/23 08:16 Anti-Inflamma pain Sulfa (Sulfonamide AdvReac Intermediate Nausea and Verified 07/07/23 14:30 Antibiotics) Vomiting ciprofloxacin [Cipro] AdvReac Mild Diarrhea Verified 07/07/23 14:30 Home Medications Medication Instructions Recorded Confirmed Last Taken Type cyclosporine 0.05 % eye drops in a 1 drp ophthalmic (eye) DAILY 02/25/22 07/07/23 Unknown History dropperette (Restasis) estradiol 0.05 mg/24 hr semiweekly 1 patch transdermal 2XW 02/25/22 07/07/23 Unknown History transdermal patch polyethylene glycol 3350 17 238 g PO DAILY PRN laxative effect 07/07/23 07/07/23 Unknown History gram/dose oral powder (Miralax) Exam Exam Date and Time: July 08, 2023 1157 Height,Weight and Vital Signs: Height 5 ft 3 in Weight 46.72 kg Narrative Narrative: EKG 04/2023 Vent. Rate : 079 BPM Atrial Rate : 079 BPM P-R Int : 128 ms QRS Dur : 080 ms QT Int : 374 ms P-R-T Axes : 069 061 073 degrees QTc Int : 428 ms Normal sinus rhythm Possible Left atrial enlargement Borderline ECG No previous ECGs available Assessment and Plan Assessment Anesthesia Assessment: Chart Reviewed Documented by User: Davidson England MD 07/09/23 17:44 HPI - Anesthesia Eval Consult details Narrative: 52yo F for Colonoscopy TMJ PMFSH Past Medical History Medical History (Updated 07/09/23 @ 09:08 by Jeremi Bueno MD) Intermittent palpitations Spasmodic torticollis Vertigo Migraine headache Functional capacity: independent ambulation Family History Family History Mother COPD (chronic obstructive pulmonary disease) Father No problems noted. Other Substance use disorder Family history of problems with anesthesia: No Surgical History Surgical History (Updated 07/07/23 @ 14:28 by Willa Barnett RN) History of esophagogastroduodenoscopy (EGD) History of endometrial ablation History of Problems with Anesthesia: No Social History Social History Housing: House Alcohol intake: never Patient Tobacco Use Status: Never used Tobacco e-Cigarette/Vaping Use: Never Used Second Hand Smoke Exposure: No service: No Current occupational status: employed Cognitive needs: No Hearing needs: No Vision needs: No Meds Allergies Allergy/AdvReac Type Severity Reaction Status Date / Time amoxicillin [AMOXICILLIN] Allergy Severe Anaphylaxis Verified 06/09/23 08:16 clindamycin [CLINDAMYCIN] Allergy Unknown UNKNOWN Verified 06/09/23 08:16 erythromycin base Allergy Unknown UNKNOWN Verified 06/09/23 08:16 [ERYTHROMYCIN BASE] ibuprofen AdvReac Intermediate pain Verified 07/07/23 14:30 nitrofurantoin AdvReac Intermediate lightheaded, Verified 07/07/23 14:30 sick NSAIDS (Non-Steroidal AdvReac Intermediate nausea, GI Verified 06/09/23 08:16 Anti-Inflamma pain Sulfa (Sulfonamide AdvReac Intermediate Nausea and Verified 07/07/23 14:30 Antibiotics) Vomiting ciprofloxacin [Cipro] AdvReac Mild Diarrhea Verified 07/07/23 14:30 Home Medications Medication Instructions Recorded Confirmed Last Taken Type cyclosporine 0.05 % eye drops in a 1 drp ophthalmic (eye) DAILY 02/25/22 07/07/23 Unknown History dropperette (Restasis) estradiol 0.05 mg/24 hr semiweekly 1 patch transdermal 2XW 02/25/22 07/07/23 Unknown History transdermal patch polyethylene glycol 3350 17 238 g PO DAILY PRN laxative effect 07/07/23 07/07/23 Unknown History gram/dose oral powder (Miralax) Exam Airway Mallampati Class: IV Neck ROM: Poor Loose/Missing/Broken Teeth: Yes (chipped left upper ) Assessment and Plan Assessment Anesthesia Assessment: Anesthesia Plan Discussed Final Anesthetic Review Family History of Problems with Anesthesia: No History of Problems with Anesthesia: No NPO: Yes ASA Class: III Final Preanesthetic Review: Meds/Allgs Chart Reviewed, Consent Obtained/Reviewed and Anes Risks/Benef Reviewed Patient Risk: Intermediate Procedure Risk: Intermediate Anesthetic Plan Anesthetic Plan: MAC: and Agree w/ Assess. and Plan Disposition: Standard PACU
--- NOTE | 2023-07-09 06:41 | MHC.SHP ---
Pre-Procedural Eval Section A Date of Service: 07/09/23 Section B Chief Complaint: Other fecal abnormalities Details of Present Illness: pos cologuard Relevant Family History (Specify if Yes): No Relevant Social History: None Present Medications: see Short Stay Collaborative assessment Medical History: Significant History (Intermittent palpitations Spasmodic torticollis Vertigo Migraine headache) History of Previous Operations: Relevant previous surgery/procedure and date(s) (endometrial ablation) Allergies: Allergies Allergy/AdvReac Type Severity Reaction Status Date / Time amoxicillin [AMOXICILLIN] Allergy Severe Anaphylaxis Verified 06/09/23 08:16 clindamycin [CLINDAMYCIN] Allergy Unknown UNKNOWN Verified 06/09/23 08:16 erythromycin base Allergy Unknown UNKNOWN Verified 06/09/23 08:16 [ERYTHROMYCIN BASE] ibuprofen AdvReac Intermediate pain Verified 07/07/23 14:30 nitrofurantoin AdvReac Intermediate lightheaded, Verified 07/07/23 14:30 sick NSAIDS (Non-Steroidal AdvReac Intermediate nausea, GI Verified 06/09/23 08:16 Anti-Inflamma pain Sulfa (Sulfonamide AdvReac Intermediate Nausea and Verified 07/07/23 14:30 Antibiotics) Vomiting ciprofloxacin [Cipro] AdvReac Mild Diarrhea Verified 07/07/23 14:30 Review of Systems Sugical H&P ROS: Negative: Constitution, Cardiovascular, Respiratory, Neurological, Psychiatric, Hem-Onc, Allergic/Immunologic, Gastrointestinal, Genitourinary, Musculoskeletal, Integumentary, Endocrine and Eyes/Ears/Nose/Throat Exam Surgical H&P Exam: Normal: HEENT, Normal: Heart, Normal: Lungs, Normal: Extremities, Normal: Abdomen, Normal: Skin and Normal: Neurological Plan Diagnosis/Plan: Unchanged I have reviewed the history and physical and performed a pertinent physical examination on my patient. No changes have occurred unless specified. Time Spent With Patient Time: Total time managing care of this patient today ____ minutes.
[2023-07-09 06:55] VITALS: BP 151/78; PULSE 95; RESP 17; TEMP 36.6; O2SAT 100; BMI 18.2
[2023-07-09] MEDS: Lactated Ringers 1,000 ML 100 ML IVCONT (07:39)
--- NOTE | 2023-07-09 08:26 | W.PM.OPN ---
Operative Note Operative Note Date of Service: 07/09/23 Narrative: Operative Information Procedure Description: Colonoscopy Indication: pos cologuard Anesthesia: MAC COLONOSCOPY Instrument: Olympus variable stiffness pediatric scope 190L Colonoscopy Monitoring: Vital signs and clinical assessment, continuous EKG monitoring, Pulse oximetry, Carbon Dioxide monitoring and blood pressure monitoring were done throughout the procedure. Colon withdrawal time was 12 minutes. Procedure: The patient was placed in the left lateral decubitis position and pre-procedure medications were administered. After a digital rectal examination of the ano-rectum, the video colonoscope was inserted into the rectum and advanced through the colon to the cecum/TI. The colonoscope was slowly withdrawn in a retrograde panoramic fashion and the colon mucosa was carefully examined including a retroflexed view of the rectum. Findings and interventions are described below. Procedure Difficulty: moderate due to redundant colon Findings: Terminal Ileum-normal Cecum: 6-8 mm sessile polyp removed with cold snare, small residual tissue removed with cold forceps Ascending Colon: normal Transverse Colon -normal Descending Colon: few inverted tics seen Sigmoid Colon: mild diverticulosis Rectum: Retroflexion with large inflammed internal hemorrhoids, grade I with skin tags, proximal rectum with 6-7 mm sessile polyp removed with cold forceps, mild rectal inflammation noted, bx taken Anorectum - normal Colon preparation: [place] Bowel Preparation Scale Right colon; 2 Transverse colon: 2 Left colon; 2 (0 = Unprepared colon segment with mucosa not seen due to solid stool that cannot be cleared. 1 = Portion of mucosa of the colon segment seen, but other areas of the colon segment not well seen due to staining, residual stool and/or opaque liquid. 2 = Minor amount of residual staining, small fragments of stool and/or opaque liquid, but mucosa of colon segment seen well. 3 = Entire mucosa of colon segment seen well with no residual staining, small fragments of stool or opaque liquid) Impression and Post Procedure Diagnosis: polyps internal hemorrhoids diverticular disease non specific rectal inflammation, maybe prep related redundant colon Plan: High fiber diet leaflet Avoid straining at stool, epsom salts and sitz bath, anusol supps or cream Repeat Colonoscopy in 3-5 years or earlier if clinically indicated Refer colorectal for her large internal hemorrhoids Above findings were reviewed with the patient and relevant handouts were provided if indicated.
[2023-07-09 09:15] VITALS: BP 103/49; PULSE 96; RESP 15; TEMP 36.8; O2SAT 100
[2023-07-09 09:30] VITALS: BP 136/73; PULSE 78; RESP 16; TEMP 37.1; O2SAT 100
== END 2023-07-09 10:11 | disposition home or self-care (01) ==
PROVIDERS: PCP Internal Medicine; Visit Provider Internal Medicine Gastroenterology
PROC: 0DJD8ZZ Inspection of Lower Intestinal Tract, Via Natural or Artificial Opening Endoscopic (ICD-10-PCS; CPT 45378; principal; 2023-07-09 08:10)
DX: R19.5 Other fecal abnormalities (principal); D12.0 Benign neoplasm of cecum; K62.1 Rectal polyp; K57.30 Diverticulosis of large intestine without perforation or abscess without bleeding; K64.0 First degree hemorrhoids; K52.9 Noninfective gastroenteritis and colitis, unspecified; K64.4 Residual hemorrhoidal skin tags; R00.2 Palpitations; G24.3 Spasmodic torticollis; G43.909 Migraine, unspecified, not intractable, without status migrainosus; R42 Dizziness and giddiness; Z88.1 Allergy status to other antibiotic agents; Z88.2 Allergy status to sulfonamides; Z88.8 Allergy status to other drugs, medicaments and biological substances
CPT/HCPCS: 45385; 45380; 88305

== ENCOUNTER → 2023-07-09 06:16 | Outpatient (BNV) | payer BC, SELFPAY | PROVIDERS: PCP Internal Medicine; Visit Provider Internal Medicine Gastroenterology | DX: Z12.11 Encounter for screening for malignant neoplasm of colon (principal); R19.5 Other fecal abnormalities; D12.0 Benign neoplasm of cecum; D12.8 Benign neoplasm of rectum; K57.90 Diverticulosis of intestine, part unspecified, without perforation or abscess without bleeding; K64.0 First degree hemorrhoids; K64.4 Residual hemorrhoidal skin tags | CPT/HCPCS: 45380; 45385 ==

== ENCOUNTER 2023-07-23 15:08 | Outpatient (AMB) | payer BC, SELFPAY ==
--- NOTE | 2023-07-23 15:09 | MHC.OFFVIS ---
Intake Intake Visit Reasons: s/p arlen Bueno Intake Note: Patient telehealth visit today s/p colonoscopy. CC: Patient reports that the colonoscopy was a nightmare and she was sick for 5 days. She felt like she got overdosed with the prep and was throwing up with nausea, rectal bleeding, and diarrhea. Pediatric Nurse Required: No Allergies amoxicillin [AMOXICILLIN] Allergy (Severe, Verified 07/23/23 15:13) Anaphylaxis clindamycin [CLINDAMYCIN] Allergy (Unknown, Verified 07/23/23 15:13) UNKNOWN erythromycin base [ERYTHROMYCIN BASE] Allergy (Unknown, Verified 07/23/23 15:13) UNKNOWN ibuprofen Adverse Reaction (Intermediate, Verified 07/23/23 15:13) pain nitrofurantoin Adverse Reaction (Intermediate, Verified 07/23/23 15:13) lightheaded, sick NSAIDS (Non-Steroidal Anti-Inflamma Adverse Reaction (Intermediate, Verified 07/23/23 15:13) nausea, GI pain Sulfa (Sulfonamide Antibiotics) Adverse Reaction (Intermediate, Verified 07/23/23 15:13) Nausea and Vomiting ciprofloxacin [Cipro] Adverse Reaction (Mild, Verified 07/23/23 15:13) Diarrhea HPI HPI Comments History of Present Illness Details Phone Type [phone] Cell 52-year-old female follows up by telehealth After her colonoscopy with polypectomy with Reviewed procedure report, pathology and recommendation She is scheduled next week for surgical consult for large hemorrhoids Currently she has no GI complaints -however did not complain about the prep./ She has no nausea, vomiting, hematemesis, fever or chills. [facility] Medical History (Updated 07/23/23 @ 15:22 by Bea Lee PA-C) Intermittent palpitations Spasmodic torticollis Vertigo Migraine headache Surgical History (Updated 07/16/23 @ 09:42 by Myriam Corona) Hx of colonoscopy History of esophagogastroduodenoscopy (EGD) History of endometrial ablation Family History Mother COPD (chronic obstructive pulmonary disease) Father No problems noted. Other Substance use disorder Social History Housing: House Alcohol intake: never Patient Tobacco Use Status: Never used Tobacco e-Cigarette/Vaping Use: Never Used Second Hand Smoke Exposure: No service: No Current occupational status: employed Cognitive needs: No Hearing needs: No Vision needs: No Review of Systems Const All systems reviewed & are unremarkable except as noted in HPI and below Card Denies chest pain GI Denies abdominal pain, Reports hematochezia (Large hemorrhoids), Denies nausea and Denies vomiting Results Reviewed Results Reviewed: Impression and Post Procedure Diagnosis: polyps internal hemorrhoids diverticular disease non specific rectal inflammation, maybe prep related redundant colon Plan: High fiber diet leaflet Avoid straining at stool, epsom salts and sitz bath, anusol supps or cream Repeat Colonoscopy in 3-5 years or earlier if clinically indicated Refer colorectal for her large internal hemorrhoids Name: Lorraine Montes De Oca Age/Sex: 52/F Attending: Jeremi Bueno MD : 1970 Submitted by: Jeremi Bueno MD Copies to: Danie Ross MD MR #: [id number] Status: [facility] [place] Collected: 07/09/23 Location: [facility] Received: 07/09/23 Diagnosis A. Colon, cecum, polypectomy: Tubular adenoma; negative for high-grade dysplasia. B. Rectum, polypectomy: Hyperplastic polyp. C. Rectum, random, biopsy: Focal active colitis (non-specific). Clinical History Pre-Op Dx: Other fecal abnormalities Post-Op Dx: Colon polyps, diverticulosis, inflamed hemorrhoids Microscopic Description Microscopic sections reviewed. Material Received A. Cecal polyp B. Rectal polyp C. Random fecal bx's Gross Description The specimens are received in formalin in 3 parts all labeled with the patient's name and date of . Part A is additionally labeled ?cecal polyp? and consists of numerous fragments of yellow soft tissue and food. The entire specimen is submitted in A. Part B is additionally labeled ?rectal polyp? and consists of a fragment of yellow soft tissue measuring up to 0.5 cm in greatest dimension. The entire specimen is submitted in B. Part C is additionally labeled ?random rectal biopsy? and consists of multiple fragments of yellow soft tissue measuring up to 0.4 cm in greatest dimension. The entire specimen is submitted in C. Copies To Jeremi Bueno MD [address] [place] [address] Dr. Ren, MIKEY [id number] Patient: Lorraine Montes De Oca Age/Sex: 52/F MR#: [id number] Page 1 of 2 Assessment & Plan Assessment & Plan (1) Tubular adenoma: Code(s): D36.9 - Benign neoplasm, unspecified site Plan: Repeat asymptomatic colonoscopy 3-5 years (2) Hemorrhoid: Code(s): K64.9 - Unspecified hemorrhoids Plan: Avoid straining Follow-up with surgeon next week (3) Diverticulosis of colon: Code(s): K57.30 - Diverticulosis of large intestine without perforation or abscess without bleeding Plan: Reviewed ER protocol Patient Instructions: Repeat colonoscopy 3-5 years for polyp surveillance Follow-up surgery for hemorrhoid consult next week Maintain high-fiber diet Avoid straining with hemorrhoids Reviewed diverticulosis/diverticulitis ear protocol Telehealth Telehealth Location of provider rendering services: practice address Location of patient: address on file Patient Identification confirmed using: Name, : Yes Telehealth method: voice only Patient verbally consented to treatment: Yes Patient verbally consented to billing insurance company: Yes Patient informed of any privacy concerns related to visit: Yes Minutes spent on Phone/Video with Pt.: 15 Coding Level of Care Code Tele New Pt Level 3 (60275) Diagnoses Tubular adenoma D36.9 Hemorrhoid K64.9 Diverticulosis of colon K57.30
== END 2023-07-23 16:05 | disposition home or self-care (01) ==
LOC: HO.HGI 15:08
PROVIDERS: PCP Internal Medicine; Visit Provider Physician Assistant
DX: D36.9 Benign neoplasm, unspecified site (principal); K64.9 Unspecified hemorrhoids; K57.30 Diverticulosis of large intestine without perforation or abscess without bleeding
CPT/HCPCS: 99442

== ENCOUNTER → 2023-07-23 15:08 | Outpatient (BNVA) | payer BC, SELFPAY | PROVIDERS: PCP Internal Medicine; Visit Provider Physician Assistant ==

== ENCOUNTER 2023-07-29 10:47 | Outpatient (AMB) | payer BC, SELFPAY ==
[2023-07-29 11:24] VITALS: BP 161/74; PULSE 91; BMI 18.8
--- NOTE | 2023-07-29 11:24 | MHC.OFFVIS ---
Intake Vital Signs 07/29/23 11:24 Height 5 ft 3 in Weight 106 lb BMI 18.8 BP 161/74 H Blood Pressure Location Rt brachial Position Sitting Pulse 91 Intake Visit Reasons: Hemorrhoids Intake Note: This patient was referred by Dr. Bueno for an assessment for hemorrhoids. Patient c/o; last colonoscopy 07/09/2023, reports no rectal bleeding. [employer] Required: No Accompanied by: Self / Same As Patient Allergies amoxicillin [AMOXICILLIN] Allergy (Severe, Verified 07/29/23 11:) Anaphylaxis clindamycin [CLINDAMYCIN] Allergy (Unknown, Verified 07/29/23:) UNKNOWN erythromycin base [ERYTHROMYCIN BASE] Allergy (Unknown, Verified 07/29/23:) UNKNOWN ibuprofen Adverse Reaction (Intermediate, Verified 07/29/23) pain nitrofurantoin Adverse Reaction (Intermediate, Verified 07/29/23) lightheaded, sick NSAIDS (Non-Steroidal Anti-Inflamma Adverse Reaction (Intermediate, Verified 07/29/23:) nausea, GI pain Sulfa (Sulfonamide Antibiotics) Adverse Reaction (Intermediate, Verified 07/29/23:) Nausea and Vomiting ciprofloxacin [Cipro] Adverse Reaction (Mild, Verified 07/29/23:) Diarrhea Medication List - Last Reconciled 07/29/23 by Carlton Moyer MD betamethasone dipropionate 0.05% 1 appl topical BID PRN cjadczjgna-iqrgikzzrljpj-gpxz 50-325-40 mg 1 tab PO Q4H PRN cyclobenzaprine 10 mg PO BEDTIME cyclosporine 0.05% (Restasis) 1 drp ophthalmic (eye) DAILY estradiol 1 patch transdermal 2XW meclizine 25 mg PO DAILY PRN 30 days onabotulinumtoxinA (Botox) 200 units IM ONCE 3 months onabotulinumtoxinA (Botox) to be injected by physician to neck muscles q 90 days sumatriptan succinate (Imitrex) 50 mg PO ONCE PRN zolpidem 10 mg PO BEDTIME PRN HPI Hemorrhoids HPI Details 52-year-old female referred for hemorrhoids. She had a screening colonoscopy last month and was noted to have hemorrhoids. She was asked to see me in the office She is actually says she has had no problems with bowel movements. She denies any bleeding. She denies any pain or swelling. She takes fiber supplements because of some constipation. She denies any family history of colon cancer She does state that her father had pancreatic cancer. [facility] Medical History (Updated 07/29/23 @ 11:53 by Carlton Moyer MD) Family history of pancreatic cancer Internal and external hemorrhoids without complication Intermittent palpitations Spasmodic torticollis Vertigo Migraine headache Surgical History Hx of colonoscopy History of esophagogastroduodenoscopy (EGD) History of endometrial ablation Family History Mother COPD (chronic obstructive pulmonary disease) Father No problems noted. Maternal Grandmother Pancreatic cancer, Onset Age: 57 Paternal Aunt Pancreatic cancer, Onset Age: 83 Father Pancreatic cancer, Onset Age: 57 Other Substance use disorder Social History Housing: House Alcohol intake: never Patient Tobacco Use Status: Never used Tobacco e-Cigarette/Vaping Use: Never Used Second Hand Smoke Exposure: No service: No Current occupational status: employed Cognitive needs: No Hearing needs: No Vision needs: No Review of Systems Const Denies chills and Denies fever(s) Card Details: Occasional palpitations Denies chest pain, Denies dyspnea and Denies dyspnea on exertion Resp Denies cough, Denies dyspnea and Denies dyspnea on exertion GI Denies hematochezia and Denies change in bowel habits Denies hematuria Musc Denies back pain and Denies limited range of motion Neuro Denies focal weakness and Denies convulsions Psych Denies depression and Denies mood swings Physical Exam Vital Signs: Last Vital Signs Pulse 91 07/29/23 11:24 BP 161/74 H 07/29/23 11:24 BMI result Body Mass Index 18.8 Const General: comfortable and no acute distress Orientation/consciousness: patient oriented x3 Neck Neck: Yes no lymphadenopathy Resp Auscultation: clear to auscultation bilaterally Cardio Rhythm: regular rhythm GI Other: Rectal exam shows external hemorrhoids on both the left and the right side, anoscopy done Palpation (GI): Soft to palpation, nontender and no guarding Neuro General: patient oriented x3 Office Procedures Anoscopy She was in leilani-knife position. The anoscope was gently inserted. A full examination of the anal canal was done. She did have internal and external hemorrhoids, moderate size, on both the left and the right side. There was no bleeding. There was no tenderness. There was no induration on digital exam [id number] Assessment & Plan Assessment & Plan (1) Internal and external hemorrhoids without complication: Code(s): K64.4 - Residual hemorrhoidal skin tags; K64.8 - Other hemorrhoids Plan: She has moderate size internal and external hemorrhoids, on both the left and right side. She denies any symptoms with this. I explained to her the option of hemorrhoidectomy for symptomatic hemorrhoids. She feels that she does not need this at this time. I did tell her that she is welcome to come back to the office to be re-evaluated down the line if she has problems with her hemorrhoids. I also advised her on avoiding straining and constipation. (2) Family history of pancreatic cancer: Code(s): Z80.0 - Family history of malignant neoplasm of digestive organs Plan: She says her father as well as maternal grandmother had pancreatic cancer. I told her that she may qualify for [facility] genetic testing. I explained to her the implications of this test. She says she is interested so we will schedule her for genetic counseling and genetic testing here in the office. Coding Level of Care Code New Pt Level 4 (45565) Diagnoses Internal and external hemorrhoids without complication K64.4; K64.8 Family history of pancreatic cancer Z80.0 CPT Codes Details - CPT: [id number] ([id number])
== END 2023-07-29 11:52 | disposition home or self-care (01) ==
PROVIDERS: PCP Internal Medicine; Referring Provider Internal Medicine Gastroenterology; Visit Provider Surgery
DX: K64.4 Residual hemorrhoidal skin tags (principal); K64.8 Other hemorrhoids; Z80.0 Family history of malignant neoplasm of digestive organs
CPT/HCPCS: 46600; 99204

== ENCOUNTER → 2023-07-29 10:47 | Outpatient (BNVA) | payer BC, SELFPAY | PROVIDERS: PCP Internal Medicine; Referring Provider Internal Medicine Gastroenterology; Visit Provider Surgery | DX: K64.4 Residual hemorrhoidal skin tags (principal); K64.8 Other hemorrhoids; Z80.0 Family history of malignant neoplasm of digestive organs | CPT/HCPCS: 46600 ==

== ENCOUNTER 2023-08-18 14:57 | Outpatient (AMB) | payer BC, SELFPAY ==
--- NOTE | 2023-08-18 14:59 | MHC.OFFVIS ---
Intake Vital Signs 08/18/23 15:00 Height 5 ft 3 in Weight 110 lb BMI 19.5 BP 126/74 Blood Pressure Location Rt brachial Position Sitting Respiration 15 Pulse 88 Pulse Source Pulse Oximeter Pulse Oximetry (%) 99 Oxygen Delivery Method Room Air Intake Visit Reasons: Botox-confirmed Intake Note: Pt presents to the office for Botox injections. Allergies amoxicillin [AMOXICILLIN] Allergy (Severe, Verified 08/18/23 14:59) Anaphylaxis clindamycin [CLINDAMYCIN] Allergy (Unknown, Verified 08/18/23 14:59) UNKNOWN erythromycin base [ERYTHROMYCIN BASE] Allergy (Unknown, Verified 08/18/23 14:59) UNKNOWN ibuprofen Adverse Reaction (Intermediate, Verified 08/18/23 14:59) pain nitrofurantoin Adverse Reaction (Intermediate, Verified 08/18/23 14:59) lightheaded, sick NSAIDS (Non-Steroidal Anti-Inflamma Adverse Reaction (Intermediate, Verified 08/18/23 14:59) nausea, GI pain Sulfa (Sulfonamide Antibiotics) Adverse Reaction (Intermediate, Verified 08/18/23 14:59) Nausea and Vomiting ciprofloxacin [Cipro] Adverse Reaction (Mild, Verified 08/18/23 14:59) Diarrhea Medication List - Last Reconciled 08/18/23 by Beena Bergman MD betamethasone dipropionate 0.05% 1 appl topical BID PRN jzfmejtqsm-djabzuhhljlcd-tigz 50-325-40 mg 1 tab PO Q4H PRN cyclobenzaprine 10 mg PO BEDTIME cyclosporine 0.05% (Restasis) 1 drp ophthalmic (eye) DAILY estradiol 1 patch transdermal 2XW meclizine 25 mg PO DAILY PRN 30 days onabotulinumtoxinA (Botox) 200 units IM ONCE 3 months onabotulinumtoxinA (Botox) to be injected by physician to neck muscles q 90 days sumatriptan succinate (Imitrex) 50 mg PO ONCE PRN zolpidem 10 mg PO BEDTIME PRN HPI HPI Comments History of Present Illness Details ? 52y/o female comes for treatment of migraine with botox . Since starting on Botox the patient has had more than 50% reduction in the number of migraine days . ??? Most frequent reported adverse reactions following injection of botox for chronic migraine include neck pain (9%), headache(5%), eyelid ptosis(4%), migraine(4%), muscular weakness(4%), musculuskeletal stiffness(4%), bronchitis(3%), injection site pain (3%), musculoskeletal pain(3%), myalgia(3%), facial paresis(2%), HTN(2%) and muscle spasms(2%) were discussed in detail. ??? Botulinum toxin typeA 100units X 3 Lot no C [id number] expiration Nov 2025 was diluted with 4 cc of normal saline . ??? Muscles injected- ??? Frontalis 4 sites ? Pain Management Nurse Practitioner- 2 sites ??? Temporalis- 6 sites ? 5 units each ??? Trapezius - right 30 units ??? Left 30 units ??? left levator 50units units right levator 25 units right splenius 50 units ??? Total use- 300units ??? PFSH Medical History Family history of pancreatic cancer Internal and external hemorrhoids without complication Intermittent palpitations Spasmodic torticollis Vertigo Migraine headache Surgical History Hx of colonoscopy History of esophagogastroduodenoscopy (EGD) History of endometrial ablation Family History Mother COPD (chronic obstructive pulmonary disease) Father No problems noted. Maternal Grandmother Pancreatic cancer, Onset Age: 57 Paternal Aunt Pancreatic cancer, Onset Age: 83 Father Pancreatic cancer, Onset Age: 57 Other Substance use disorder Social History Housing: House Alcohol intake: never Patient Tobacco Use Status: Never used Tobacco e-Cigarette/Vaping Use: Never Used Second Hand Smoke Exposure: No service: No Current occupational status: employed Cognitive needs: No Hearing needs: No Vision needs: No Physical Exam Vital Signs: Last Vital Signs Pulse 88 08/18/23 15:00 Resp 15 08/18/23 15:00 BP 126/74 08/18/23 15:00 Pulse Ox 99 08/18/23 15:00 Oxygen Delivery Method Room Air 08/18/23 15:00 BMI result Body Mass Index 19.5 Const General: cooperative, healthy appearing and comfortable Nutritional Appearance: average body habitus Orientation/consciousness: patient oriented x3 Eyes Pupils: Equal, round and reactive pupils present Neck Other: antecollis Neuro General: patient oriented x3, gait normal, tone normal and moves all extremities Cranial nerves: Yes CN's II-XII intact bilaterally, Yes Facial sensation intact/muscles of mastication intact and Yes Equal, round and reactive pupils present Office Procedures Botulinum toxin Injection 35950 - Migraine 46230 - Dystonia Procedure code (CPT) selection complete Office Meds onabotulinumtoxinA 100 unit solution for injection Performing Provider: Beena Bergman MD Performing Location: [facility] Administered by: Beena Bergman MD on 08/18/23 15:59 Dose Route Admin Location Dispensed Lot Number Expiration Date [facility] Care Director 300 unit subcut 300 units [id number] 11/19/25 5104-0834-92 ALLERGAN/BOTOX Comments: see HPI Assessment & Plan Assessment & Plan (1) Chronic migraine without aura: Code(s): G43.709 - Chronic migraine without aura, not intractable, without status migrainosus (2) Migraine with aura, intractable, without status migrainosus: Comment: she has more than 50% reduction in migraines since starting treatment with botox Code(s): G43.119 - Migraine with aura, intractable, without status migrainosus (3) Spasmodic torticollis: Code(s): G24.3 - Spasmodic torticollis Plan Patient tolerated the procedure well she will call with any side effects ANti JESSICA and Ampiphysin antibody levels- normal Orders: Orders AMB Botulinum toxin Injection - Patient Supplied Today G24.3 - Spasmodic torticollis, G43.709 - Chronic migraine without aura, not intractable, without status migrainosus Coding Level of Care Code Est Pt Level 1 (98480) Diagnoses Chronic migraine without aura G43.709 Migraine with aura, intractable, without status migrainosus G43.119 Spasmodic torticollis G24.3 CPT Codes Botox Injection - Botox 3: 05753 - Migraine ([id number]) Botox Injection - Botox 4: 73460 - Dystonia ([id number])
[2023-08-18 15:00] VITALS: BP 126/74; PULSE 88; RESP 15; O2SAT 99; BMI 19.5
== END 2023-08-18 16:02 | disposition home or self-care (01) ==
PROVIDERS: PCP Internal Medicine; Visit Provider Psychiatry & Neurology Neurology
DX: G43.709 Chronic migraine without aura, not intractable, without status migrainosus (principal)
CPT/HCPCS: 64615

== ENCOUNTER → 2023-08-18 14:57 | Outpatient (BNVA) | payer BC, SELFPAY | PROVIDERS: PCP Internal Medicine; Visit Provider Psychiatry & Neurology Neurology | DX: G43.709 Chronic migraine without aura, not intractable, without status migrainosus (principal); G24.3 Spasmodic torticollis | CPT/HCPCS: 64615; 99211; J0585 ==

== ENCOUNTER 2023-09-09 12:46 | Outpatient (AMB) | payer BC, SELFPAY ==
--- NOTE | 2023-09-09 12:55 | MHC.OFFVIS ---
Intake Vital Signs 09/09/23 13:00 Height 5 ft 3 in Weight 108 lb 4 oz BMI 19.2 BP 132/68 Blood Pressure Location Lt brachial Position Sitting Pulse 85 Intake Visit Reasons: genetic testing results *HERE* Intake Note: Patient is seen in office for genetic testing results. Pt c/o: here for results Intensive Care Medicine Specialist Required: No Accompanied by: Self / Same As Patient Allergies amoxicillin [AMOXICILLIN] Allergy (Severe, Verified 09/09/23 13:01) Anaphylaxis clindamycin [CLINDAMYCIN] Allergy (Unknown, Verified 09/09/23 13:01) UNKNOWN erythromycin base [ERYTHROMYCIN BASE] Allergy (Unknown, Verified 09/09/23 13:01) UNKNOWN ibuprofen Adverse Reaction (Intermediate, Verified 09/09/23 13:01) pain nitrofurantoin Adverse Reaction (Intermediate, Verified 09/09/23 13:01) lightheaded, sick NSAIDS (Non-Steroidal Anti-Inflamma Adverse Reaction (Intermediate, Verified 09/09/23 13:01) nausea, GI pain Sulfa (Sulfonamide Antibiotics) Adverse Reaction (Intermediate, Verified 09/09/23 13:01) Nausea and Vomiting ciprofloxacin [Cipro] Adverse Reaction (Mild, Verified 09/09/23 13:01) Diarrhea Medication List - Last Reconciled 09/09/23 by Carlton Moyer MD betamethasone dipropionate 0.05% 1 appl topical BID PRN nxjkblmlze-vxckuuaqrmkls-gxmb 50-325-40 mg 1 tab PO Q4H PRN cyclobenzaprine 10 mg PO BEDTIME cyclosporine 0.05% (Restasis) 1 drp ophthalmic (eye) DAILY estradiol 1 patch transdermal 2XW meclizine 25 mg PO DAILY PRN 30 days onabotulinumtoxinA (Botox) 200 units IM ONCE 3 months onabotulinumtoxinA (Botox) to be injected by physician to neck muscles q 90 days sumatriptan succinate (Imitrex) 50 mg PO ONCE PRN zolpidem 10 mg PO BEDTIME PRN HPI genetic testing results *HERE* HPI Details She had undergone genetic testing for a family history of pancreatic cancer. She otherwise denies any significant complaints at this time. [facility] Medical History Family history of pancreatic cancer Internal and external hemorrhoids without complication Intermittent palpitations Spasmodic torticollis Vertigo Migraine headache Surgical History Hx of colonoscopy History of esophagogastroduodenoscopy (EGD) History of endometrial ablation Family History Mother COPD (chronic obstructive pulmonary disease) Father No problems noted. Maternal Grandmother Pancreatic cancer, Onset Age: 57 Paternal Aunt Pancreatic cancer, Onset Age: 83 Father Pancreatic cancer, Onset Age: 57 Other Substance use disorder Housing: House Alcohol intake: never Patient Tobacco Use Status: Never used Tobacco e-Cigarette/Vaping Use: Never Used Second Hand Smoke Exposure: No service: No Current occupational status: employed Cognitive needs: No Hearing needs: No Vision needs: No Review of Systems Const Denies chills and Denies fever(s) Card Denies chest pain, Denies dyspnea and Denies dyspnea on exertion Resp Denies cough, Denies dyspnea and Denies dyspnea on exertion GI Denies hematochezia and Denies change in bowel habits Denies hematuria Musc Denies back pain and Denies limited range of motion Neuro Denies focal weakness and Denies convulsions Psych Denies depression and Denies mood swings Physical Exam Vital Signs: Last Vital Signs Pulse 85 09/09/23 13:00 BP 132/68 09/09/23 13:00 BMI result Body Mass Index 19.2 Const General: comfortable and no acute distress Resp Effort & Inspection: normal respiratory effort Cardio Rate: regular rate Assessment & Plan Assessment & Plan (1) Family history of pancreatic cancer: Code(s): Z80.0 - Family history of malignant neoplasm of digestive organs Plan: Her [facility] genetic testing does not reveal any significant genetic mutation. I explained this finding to her. I did explain to her that she still should continue with regular screening programs including mammograms and colonoscopies. She can follow up on a p.r.n. basis. Coding Level of Care Code Est Pt Level 2 (15789) Diagnoses Family history of pancreatic cancer Z80.0
[2023-09-09 13:00] VITALS: BP 132/68; PULSE 85; BMI 19.2
== END 2023-09-09 13:23 | disposition home or self-care (01) ==
PROVIDERS: PCP Internal Medicine; Visit Provider Surgery
DX: Z80.0 Family history of malignant neoplasm of digestive organs (principal)
CPT/HCPCS: 99212

== ENCOUNTER → 2023-09-09 12:46 | Outpatient (BNVA) | payer BC, SELFPAY | PROVIDERS: PCP Internal Medicine; Visit Provider Surgery ==

== ENCOUNTER 2023-11-27 11:23 | Outpatient (AMB) | payer BC, SELFPAY ==
[2023-11-27 11:25] VITALS: BP 130/72; PULSE 72; O2SAT 100; BMI 19.1
--- NOTE | 2023-11-27 11:25 | A.OFFPC_ITS ---
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 Allergies amoxicillin [AMOXICILLIN] Allergy (Severe, Verified 11/27/23 11:26) Anaphylaxis clindamycin [CLINDAMYCIN] Allergy (Unknown, Verified 11/27/23 11:26) UNKNOWN erythromycin base [ERYTHROMYCIN BASE] Allergy (Unknown, Verified 11/27/23 11:26) UNKNOWN ibuprofen Adverse Reaction (Intermediate, Verified 11/27/23 11:26) pain nitrofurantoin Adverse Reaction (Intermediate, Verified 11/27/23 11:) lightheaded, sick NSAIDS (Non-Steroidal Anti-Inflamma Adverse Reaction (Intermediate, Verified 11/27/23 11:) nausea, GI pain Sulfa (Sulfonamide Antibiotics) Adverse Reaction (Intermediate, Verified 11/27/23 11:26) Nausea and Vomiting ciprofloxacin [Cipro] Adverse Reaction (Mild, Verified 11/27/23 11:26) Diarrhea Medication List - Last Reconciled 11/27/23 by Danie Ross MD betamethasone dipropionate 0.05% 1 appl topical BID PRN gcyeipxqhs-anboikkemklsz-hgqp 50-325-40 mg 1 tab PO Q4H PRN cyclobenzaprine 10 mg PO BEDTIME cyclosporine 0.05% (Restasis) 1 drp ophthalmic (eye) DAILY estradiol 1 patch transdermal 2XW meclizine 25 mg PO DAILY PRN 30 days onabotulinumtoxinA (Botox) 200 units IM ONCE 3 months onabotulinumtoxinA (Botox) to be injected by physician to neck muscles q 90 days sumatriptan succinate (Imitrex) 50 mg PO ONCE PRN zolpidem 10 mg PO BEDTIME PRN Tobacco use date assessed: 11/27/23 Dental Screening Dental Screen Date: 11/27/23 Did you have a dental visit in the last 12 months?: Yes Did you have a dental problem in the last 6 months where you did not have access to dental care?: No Was dental information given to patient?: Patient has dentist HPI Cardiology Referral-Heart Palpitations HPI Details palpitations and light headedness for a week; no chest pain [facility] Medical History Family history of pancreatic cancer Internal and external hemorrhoids without complication Intermittent palpitations Spasmodic torticollis Vertigo Migraine headache Surgical History Hx of colonoscopy History of esophagogastroduodenoscopy (EGD) History of endometrial ablation Family History Mother COPD (chronic obstructive pulmonary disease) Father No problems noted. Maternal Grandmother Pancreatic cancer, Onset Age: 57 Paternal Aunt Pancreatic cancer, Onset Age: 83 Father Pancreatic cancer, Onset Age: 57 Other Substance use disorder Social History Housing: House Alcohol intake: never Patient Tobacco Use Status: Never used Tobacco e-Cigarette/Vaping Use: Never Used Second Hand Smoke Exposure: No service: No Current occupational status: employed Cognitive needs: No Hearing needs: No Vision needs: No Questionnaire Thrive Questionnaire Date Thrive assessed: 04/23/23 AUDIT C Alcohol Use Questionnaire (AUDIT-C) 1. How often do you have a drink containing alcohol?: Never 3. How often do you have six or more drinks on one occasion?: Never Total Score: 0 Score Reviewed/Action Taken: Yes JESSICA-7 AMB Questionnaire JESSICA-7 Date JESSICA - 7 assessed: 11/27/23 Source: Developed by Drs. Nahun Jett, Cara Marr, Moreno Reich and colleagues, with an educational gelacio from [employer]. Review of Systems Const Denies chills, Denies headache(s) and Denies weight loss ENT Denies headache(s) Card Denies chest pain, Denies syncope and Denies dyspnea Resp Denies chest congestion, Denies cough and Denies dyspnea GI Denies abdominal pain, Denies change in stool character, Denies nausea and Denies vomiting Musc Denies deformity and Denies joint swelling Neuro Denies syncope and Denies headache(s) Physical exam (Primary Care) Vital Signs: Last Vital Signs Pulse 72 11/27/23 11:25 BP 130/72 11/27/23 11:25 Pulse Ox 100 11/27/23 11:25 Oxygen Delivery Method Room Air 11/27/23 11:25 BMI result Body Mass Index 19.1 Tobacco/Smoking Status: Tobacco use Status Tobacco use date assessed 11/27/23 11/27/23 11:32 Patient Tobacco Use Status Never used Tobacco 11/27/23 11:32 e-Cigarette/Vaping Use Never Used 11/27/23 11:32 Thrive Assessment: Date of Thrive Assessment Date Thrive assessed 04/23/23 11/27/23 11:32 Const General: cooperative, comfortable, no acute distress and alert Neck Neck: Yes no lymphadenopathy Thyroid: Thyroid normal Resp Effort & Inspection: normal respiratory effort Auscultation: clear to auscultation bilaterally Percussion: percussion normal Cardio Jugular venous distension: no JVD Palpation: normal PMI Rate: regular rate Rhythm: regular rhythm Heart sounds: S1 normal heart sound present and S2 normal heart sound present GI Inspection: Yes normal to inspection Palpation (GI): No hepatosplenomegaly present Skin General skin exam: no rashes or lesions noted Extrem General: Yes no clubbing, cyanosis or edema Assessment and Plan Assessment & Plan (1) Intermittent palpitations: Code(s): R00.2 - Palpitations Plan: EKG and car ref Orders: Orders ECG 12 lead EKG Today R00.2 - Palpitations Referrals Cardiology Referral R00.2 - Palpitations Coding Level of Care Code Est Pt Level 3 (64248) Diagnoses Intermittent palpitations R00.2
== END 2023-11-27 11:42 | disposition home or self-care (01) ==
PROVIDERS: PCP Internal Medicine; Visit Provider Internal Medicine
DX: R00.2 Palpitations (principal)
CPT/HCPCS: 99213

== ENCOUNTER → 2023-11-27 11:54 | Outpatient (REF) | payer BC, SELFPAY ==
--- NOTE | 2023-11-27 11:58 | ECG_ITS ---
Test Reason : PALPS R00.2 Blood Pressure : / mmHG Vent. Rate : 078 BPM Atrial Rate : 078 BPM P-R Int : 118 ms QRS Dur : 078 ms QT Int : 376 ms P-R-T Axes : 062 060 071 degrees QTc Int : 428 ms Normal sinus rhythm Normal ECG When compared with ECG of 30-APR-2023 11:07, No significant change was found Referred By: Danie Ross Electronically Signed By:JEAN MARIE GONZALEZ
== END ==
LOC: HO.CARD 11:54
PROVIDERS: PCP Internal Medicine; Visit Provider Internal Medicine
DX: R00.2 Palpitations (principal)
CPT/HCPCS: 93005

== ENCOUNTER → 2023-11-27 11:58 | Outpatient (BNV) | payer BC, SELFPAY | PROVIDERS: PCP Internal Medicine; Visit Provider Internal Medicine | DX: R00.2 Palpitations (principal) | CPT/HCPCS: 93010 ==

== ENCOUNTER 2023-12-08 09:12 | Outpatient (AMB) | payer BC, SELFPAY ==
--- NOTE | 2023-12-08 09:16 | A.OFFVIS_ITS ---
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 Intake Note: NPV Reliability Manager Required: No Accompanied by: Self / Same As Patient Allergies amoxicillin [AMOXICILLIN] Allergy (Severe, Verified 12/08/23 09:18) Anaphylaxis clindamycin [CLINDAMYCIN] Allergy (Unknown, Verified 12/08/23 09:18) UNKNOWN erythromycin base [ERYTHROMYCIN BASE] Allergy (Unknown, Verified 12/08/23 09:18) UNKNOWN ibuprofen Adverse Reaction (Intermediate, Verified 12/08/23 09:18) pain nitrofurantoin Adverse Reaction (Intermediate, Verified 12/08/23 09:18) lightheaded, sick NSAIDS (Non-Steroidal Anti-Inflamma Adverse Reaction (Intermediate, Verified 12/08/23 09:18) nausea, GI pain Sulfa (Sulfonamide Antibiotics) Adverse Reaction (Intermediate, Verified 12/08/23 09:18) Nausea and Vomiting ciprofloxacin [Cipro] Adverse Reaction (Mild, Verified 12/08/23 09:18) Diarrhea Medication List - Last Reconciled 12/08/23 by Nic Vivas MD betamethasone dipropionate 0.05% 1 appl topical BID PRN djdeknwcna-wfrboztzfgfwg-bzgb 50-325-40 mg 1 tab PO Q4H PRN cyclobenzaprine 10 mg PO BEDTIME cyclosporine 0.05% (Restasis) 1 drp ophthalmic (eye) DAILY estradiol 1 patch transdermal 2XW meclizine 25 mg PO DAILY PRN 30 days onabotulinumtoxinA (Botox) 200 units IM ONCE 3 months onabotulinumtoxinA (Botox) to be injected by physician to neck muscles q 90 days sumatriptan succinate (Imitrex) 50 mg PO ONCE PRN zolpidem 10 mg PO BEDTIME PRN HPI HPI Comments History of Present Illness Details Lorraine is here for consultation regarding palpitations. 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 She gets up almost at 04:45 in the morning to start work. Last January, she started noticing palpitations. Since then, it has been happening intermittently, every few weeks/months. This has been very bothersome. She feels her heart fluttering. She feels as though the muscles on her chest wall are fasciculating. No clear anginal-type symptoms or shortness of breath. [facility] Medical History Family history of pancreatic cancer Internal and external hemorrhoids without complication Intermittent palpitations Spasmodic torticollis Vertigo Migraine headache Surgical History Hx of colonoscopy History of esophagogastroduodenoscopy (EGD) History of endometrial ablation Family History Mother COPD (chronic obstructive pulmonary disease) Father No problems noted. Maternal Grandmother Pancreatic cancer, Onset Age: 57 Paternal Aunt Pancreatic cancer, Onset Age: 83 Father Pancreatic cancer, Onset Age: 57 Other Substance use disorder Social History Housing: House Alcohol intake: never Patient Tobacco Use Status: Never used Tobacco e-Cigarette/Vaping Use: Never Used Second Hand Smoke Exposure: No service: No Current occupational status: employed Cognitive needs: No Hearing needs: No Vision needs: No Review of Systems Const Denies chills, Denies daytime sleepiness, Denies fatigue, Denies fever(s), Denies frequent falls, Denies night sweats, Denies snoring, Denies weakness, Denies weight gain and Denies weight loss Eyes Denies loss of vision ENT Denies dizziness and Denies hearing loss Card Denies chest pain, Denies chest pain with activity, Denies syncope, Denies rapid heart rate, Denies edema, Denies claudication, Denies leg edema, Denies lightheadedness, Denies dyspnea, Denies dyspnea on exertion and Denies orthopnea Resp Denies cough, Denies excessive phlegm production, Denies dyspnea, Denies dyspnea on exertion, Denies snoring and Denies wheezing GI Denies abdominal pain, Denies hematochezia, Denies change in bowel habits, Denies change in stool character, Denies heartburn, Denies nausea and Denies vomiting Denies hematuria, Denies urinary frequency and Denies dysuria Musc Denies arthralgias, Denies muscle weakness, Denies numbness and Denies tingling Skin/Breast Denies nail changes and Denies rash Neuro Denies Abnormal speech present, Denies dizziness, Denies syncope, Denies frequent falls, Denies loss of vision, Denies memory loss, Denies numbness, Denies tingling and Denies weakness Psych Denies depression and Denies memory loss Endo Denies fatigue Aller/Immun Denies wheezing Physical Exam Vital Signs: Last Vital Signs Pulse 90 12/08/23 09:17 BP 128/72 12/08/23 09:17 BMI result Body Mass Index 19.1 Const General: comfortable and no acute distress Orientation/consciousness: patient oriented x3 HEENT Other: Unremarkable Head: Yes normal to inspection Neck Neck: Yes normal visual inspection Chest Chest palpation & inspection: normal inspection of the chest Resp Auscultation: clear to auscultation bilaterally Cardio Palpation: normal PMI Heart sounds: S1 normal heart sound present, S2 normal heart sound present, no gallops, no murmurs and no rubs GI Palpation (GI): Soft to palpation Back/Spine/Pelvis Other: unremarkable Skin General skin exam: no rashes or lesions noted Neuro General: patient oriented x3 Speech: No Abnormal speech present Extrem General: Yes normal to inspection Psych Mental Status: mental status grossly normal Assessment & Plan Assessment & Plan (1) Intermittent palpitations: Code(s): R00.2 - Palpitations Plan EKG shows sinus rhythm at 78/Min; no significant ST-T changes and otherwise unremarkable. Normal AK and corrected QT. We will get an echocardiogram/Holter for further evaluation. As episodes are infrequent, we can do a 30 day monitor. Plan based on findings. Orders: Orders CA echo transthoracic complete Today R00.2 - Palpitations ECG 30 day event monitor Today R00.2 - Palpitations Medications: Changed From dokycwkesg-kbdsqxwtaheex-mcea 50-325-40 mg 1 tab PO Q4H PRN 60 tabs 5RF pain To ncusozbzfq-bjxnivlilyjmf-rfjm 50-325-40 mg 1 tab PO Q4H PRN Coding Level of Care Code New Pt Level 3 (36908) Diagnoses Intermittent palpitations R00.2
[2023-12-08 09:17] VITALS: BP 128/72; PULSE 90; BMI 19.1
== END 2023-12-08 09:46 | disposition home or self-care (01) ==
PROVIDERS: PCP Internal Medicine; Visit Provider Internal Medicine
DX: R00.2 Palpitations (principal)
CPT/HCPCS: 99203

== ENCOUNTER → 2023-12-08 09:12 | Outpatient (BNVA) | payer BC, SELFPAY | PROVIDERS: PCP Internal Medicine; Visit Provider Internal Medicine ==

== ENCOUNTER → 2023-12-24 12:46 | Outpatient (REF) | payer BC, SELFPAY ==
--- NOTE | 2023-12-24 12:49 | CA_ITS ---
Transthoracic Echocardiogram Patient (Last, First, Middle): Lorraine Montes De Oca, Gender: Female Date of : 1970 Age: 53 Procedure Date: 12/24/2023 Procedure Type: Transthoracic Echocardiogram Location: OP Height: 160.02 cm Weight: 48.08 kg BSA: 1.48 m2 Heart Rate: bpm BP: 110 / 74 mmHg Java Grails Developer: LEONEL Referring MD: Nic Vivas MD Lunch Truck Driver: Elliott Nava MD Symptoms: R00.2 - Palpitations Study Quality: Adequate ECG Rhythm: Sinus Conclusions: - Essentially normal study Findings Left Ventricle Normal left ventricular size, thickness, and systolic function. The visually estimated ejection fraction is between 60-65%. Spectral Doppler is indicative of a normal filling pattern. Peak GLS is -16.6%, which is mildly reduced. Right Ventricle Normal right ventricular cavity size and systolic function. Atria Both atria are normal in size. There is no evidence of interatrial shunt. Aortic Valve Normal aortic valve structure and function. There is no aortic valve stenosis. There is no aortic valve regurgitation. Mitral Valve Normal mitral valve structure and function. There is trace mitral valve regurgitation. There is no mitral valve stenosis. Pulmonic Valve The pulmonic valve is likely normal. Tricuspid Valve Normal tricuspid valve structure. There is trace tricuspid valve regurgitation. The right ventricular systolic pressure is normal. The right ventricular systolic pressure is 23 mmHg. Normal right atrial pressure. There is no evidence of pulmonary hypertension. Great Vessels All visible segments of the aorta are normal in size. The pulmonary artery was not well visualized. There is no dilatation of the ascending aorta measuring 2.70 cm. Venous The inferior vena cava is normal in size and collapses greater than 50% with inspiration. Pericardium/Pleural There is no evidence of pericardial effusion. Prior Study Comparison No prior study available for comparison. Measurements 2D Linear Measurements IVSd: 1.03 0.6-0.9/0.6-1.0 cm LVIDd: 3.52 3.9-5.3/4.2-5.9 cm LVIDd Index: 2.38 2.4-3.2/2.2-3.1 cm/m2 LVIDs: 2.20 2.0-3.6 cm LVPWd: 0.92 0.7-1.1 cm LA Diam: 2.60 2.7-3.8/3.0-4.0 cm LAIDs Index: 1.76 1.5-2.3 cm/m2 LV Mass: 124.86 67-162/88-224 g LV Mass Index: 84.36 43-95/49-115 g/m2 LVOT Diam: 1.90 3.0+(-)1.3 cm Mitral Valve MV Pk E: 0.96 MV PK A: 0.72 MV Decel Time: 246.00 E/A: 1.30 E'Lateral: 9.68 E'Medial: 5.22 E/E' Med: 18.50 E/E' Lat: 10.00 PHT: 72.00 MVA PHT: 3.06 Decel Grady: 3.93 Aortic Valve AoV Pk Dustin: 1.20 AoV Mn Dustin: 0.86 AoV VTI: 0.23 AoV Pk Grad: 6.00 Aov Mn Grad: 3.00 ARSLAN Cont.VTI: 2.68 LVOT LVOT Pk Dustin: 0.99 LVOT Mn Dustin: 0.70 LVOT VTI: 0.22 LVOT Pk Grad: 4.00 LVOT Mn Grad: 2.00 LVOT Diam: 1.90 LVOT Area: 2.84 Diastolic Function MV Pk E: 0.96 MV Pk A: 0.72 E/A: 1.30 E'Medial: 5.22 E/E' Med: 18.50 E' Laterial: 9.68 E/E' Lat: 10.00 Right Ventricle TAPSE (mm): 23.70 TVS' Dustin: 13.90 Tricuspid Valve TR Pk Dustin: 2.25 TR Pk Grad: 20.00 RA Press: 3.00 RVSP: 23.00 Great Vessels Aorta Sinus of Valsalva: 2.83 2.0-3.[address] [place]: 2.57 1.7-3.4 cm Ao Asc: 2.70 2.1-3.4 cm Updated in Other Vendor System with Status of Final Elliott Nava MD electronically signed on 12/25/2023 4:31:24 PM with status of Final
--- NOTE | 2023-12-24 12:49 | HM_ITS ---
Conclusion: 1. Patient was monitored for total period of 13 days 2. Baseline was normal sinus rhythm with average heart of 84 beats per minute 3. No significant pauses noted 4. Rare PACs noted 5. Patient marked the counter 5 times with 2 symptoms reported in the diary, of erratic heartbeat, markers correlated with either sinus rhythm or sinus tachycardia. One of the markers correlated with PACs MTDD
== END ==
LOC: HO.CARD 12:46
PROVIDERS: PCP Internal Medicine; Visit Provider Internal Medicine
DX: R00.2 Palpitations (principal)
CPT/HCPCS: 93246; 93306; 93356

== ENCOUNTER → 2023-12-24 12:49 | Outpatient (BNV) | payer BC, SELFPAY | PROVIDERS: PCP Internal Medicine; Visit Provider Internal Medicine Cardiovascular Disease | DX: R00.2 Palpitations (principal) | CPT/HCPCS: 93248; 93306; 93356 ==

== ENCOUNTER 2023-12-29 14:52 | Outpatient (AMB) | payer BC, SELFPAY ==
[2023-12-29 15:03] VITALS: BP 118/72; PULSE 88; RESP 17; O2SAT 99; BMI 19.2
--- NOTE | 2023-12-29 15:03 | MHC.OFFVIS ---
Intake Vital Signs 12/29/23 15:03 Height 5 ft 3 in Weight 108 lb 4 oz BMI 19.2 BP 118/72 Blood Pressure Location Rt brachial Position Sitting Respiration 17 Pulse 88 Pulse Source Pulse Oximeter Pulse Oximetry (%) 99 Oxygen Delivery Method Room Air Intake Visit Reasons: Botox-LVM Intake Note: Pt presents to office for Botox injections. Crew Director Required: No Allergies amoxicillin [AMOXICILLIN] Allergy (Severe, Verified 12/29/23 15:03) Anaphylaxis clindamycin [CLINDAMYCIN] Allergy (Unknown, Verified 12/29/23 15:03) UNKNOWN erythromycin base [ERYTHROMYCIN BASE] Allergy (Unknown, Verified 12/29/23 15:03) UNKNOWN ibuprofen Adverse Reaction (Intermediate, Verified 12/29/23 15:03) pain nitrofurantoin Adverse Reaction (Intermediate, Verified 12/29/23 15:03) lightheaded, sick NSAIDS (Non-Steroidal Anti-Inflamma Adverse Reaction (Intermediate, Verified 12/29/23 15:03) nausea, GI pain Sulfa (Sulfonamide Antibiotics) Adverse Reaction (Intermediate, Verified 12/29/23 15:03) Nausea and Vomiting ciprofloxacin [Cipro] Adverse Reaction (Mild, Verified 12/29/23 15:03) Diarrhea Medication List - Last Reconciled 12/29/23 by Beena Bergman MD betamethasone dipropionate 0.05% 1 appl topical BID PRN drkuyhorve-irctxeptbsbbn-qysk 50-325-40 mg 1 tab PO Q4H PRN cyclobenzaprine 10 mg PO BEDTIME cyclosporine 0.05% (Restasis) 1 drp ophthalmic (eye) DAILY estradiol 1 patch transdermal 2XW meclizine 25 mg PO DAILY PRN 30 days onabotulinumtoxinA (Botox) 200 units IM ONCE 3 months onabotulinumtoxinA (Botox) to be injected by physician to neck muscles q 90 days sumatriptan succinate (Imitrex) 50 mg PO ONCE PRN zolpidem 10 mg PO BEDTIME PRN HPI HPI Comments History of Present Illness Details ? 53y/o female comes for treatment of spasmodic torticollis and migraines with botox . Since starting on Botox the patient has had more than 50% reduction in the number of migraine days . Prior to Botox Number of migraine days /month- 25-30 Intensity- 10/10 Eopktejjp-3-0/week ER- multiple visits Post Botox Numbe rof migraine days- 10-12 days/month Intensity- 5-8/10 ER - none Intensity - decreased use of medications- less Lats injection- 10/10 ??? Most frequent reported adverse reactions following injection of botox for chronic migraine include neck pain (9%), headache(5%), eyelid ptosis(4%), migraine(4%), muscular weakness(4%), musculuskeletal stiffness(4%), bronchitis(3%), injection site pain (3%), musculoskeletal pain(3%), myalgia(3%), facial paresis(2%), HTN(2%) and muscle spasms(2%) were discussed in detail. ??? Botulinum toxin typeA 100units X 3 Lot no C [id number] expiration December 2025 was diluted with 4 cc of normal saline . ??? Muscles injected- ??? Frontalis 4 sites ? Cut Off Sawyer Log- 2 sites ??? Temporalis- 6 sites ? 5 units each ??? Trapezius - right 30 units ??? Left 30 units ??? left levator 50units units right levator 25 units right splenius 50 units ??? Total use- 300units ??? PFSH Medical History Family history of pancreatic cancer Internal and external hemorrhoids without complication Intermittent palpitations Spasmodic torticollis Vertigo Migraine headache Surgical History Hx of colonoscopy History of esophagogastroduodenoscopy (EGD) History of endometrial ablation Family History Mother COPD (chronic obstructive pulmonary disease) Father No problems noted. Maternal Grandmother Pancreatic cancer, Onset Age: 57 Paternal Aunt Pancreatic cancer, Onset Age: 83 Father Pancreatic cancer, Onset Age: 57 Other Substance use disorder Social History Housing: House Alcohol intake: never Patient Tobacco Use Status: Never used Tobacco e-Cigarette/Vaping Use: Never Used Second Hand Smoke Exposure: No service: No Current occupational status: employed Cognitive needs: No Hearing needs: No Vision needs: No Review of Systems Neuro Denies Abnormal speech present Physical Exam Vital Signs: Last Vital Signs Pulse 88 12/29/23 15:03 Resp 17 12/29/23 15:03 BP 118/72 12/29/23 15:03 Pulse Ox 99 12/29/23 15:03 Oxygen Delivery Method Room Air 12/29/23 15:03 BMI result Body Mass Index 19.2 Const General: comfortable and no acute distress Orientation/consciousness: patient oriented x3 HEENT Other: Unremarkable Head: Yes normal to inspection Neck Neck: Yes normal visual inspection Chest Chest palpation & inspection: normal inspection of the chest Resp Auscultation: clear to auscultation bilaterally Cardio Palpation: normal PMI Heart sounds: S1 normal heart sound present, S2 normal heart sound present, no gallops, no murmurs and no rubs GI Palpation (GI): Soft to palpation Back/Spine/Pelvis Other: unremarkable Skin General skin exam: no rashes or lesions noted Neuro General: patient oriented x3 Speech: No Abnormal speech present Extrem General: Yes normal to inspection Psych Mental Status: mental status grossly normal Office Procedures Botulinum toxin Injection 60502 - Dystonia Procedure code (CPT) selection complete Office Meds onabotulinumtoxinA 100 unit solution for injection Performing Provider: Beena Bergman MD Performing Location: [facility] [place] [facility] Administered by: Beena Bergman MD on 12/29/23 15:38 Dose Route Admin Location Dispensed Lot Number Expiration Date [facility] [employer] Salesperson 300 unit IM 300 units [id number] 12/17/25 7064-4550-65 [employer] Comments: see hpi Assessment & Plan Assessment & Plan (1) Spasmodic torticollis: Code(s): G24.3 - Spasmodic torticollis (2) Chronic migraine without aura: Code(s): G43.709 - Chronic migraine without aura, not intractable, without status migrainosus (3) Migraine with aura, intractable, without status migrainosus: Comment: she has more than 50% reduction in migraines since starting treatment with botox Code(s): G43.119 - Migraine with aura, intractable, without status migrainosus Plan Patient tolerated the procedure well she will call with any side effects ANti JESSICA and Ampiphysin antibody levels- normal Orders: Orders AMB Botulinum toxin Injection Today G24.3 - Spasmodic torticollis Coding Level of Care Code Est Pt Level 1 (58328) Diagnoses Spasmodic torticollis G24.3 Chronic migraine without aura G43.709 Migraine with aura, intractable, without status migrainosus G43.119 CPT Codes Botox Injection - Botox 4: 69253 - Dystonia ([id number])
== END 2023-12-29 15:38 | disposition home or self-care (01) ==
PROVIDERS: PCP Internal Medicine; Visit Provider Psychiatry & Neurology Neurology
DX: G43.119 Migraine with aura, intractable, without status migrainosus (principal)
CPT/HCPCS: 64615

== ENCOUNTER → 2023-12-29 14:52 | Outpatient (BNVA) | payer BC, SELFPAY | PROVIDERS: PCP Internal Medicine; Visit Provider Psychiatry & Neurology Neurology | DX: G24.3 Spasmodic torticollis (principal); G43.709 Chronic migraine without aura, not intractable, without status migrainosus; G43.119 Migraine with aura, intractable, without status migrainosus; Z79.899 Other long term (current) drug therapy | CPT/HCPCS: 64615; 99211; J0585 ==

== ENCOUNTER 2024-02-02 14:22 | Outpatient (AMB) | payer BC, SELFPAY ==
[2024-02-02 14:39] VITALS: BP 130/72; PULSE 78; BMI 21.1
--- NOTE | 2024-02-02 14:39 | A.OFFVIS_ITS ---
Intake Vital Signs 02/02/24 14:39 Height 5 ft 3 in Weight 119 lb 0.794 oz BMI 21.1 BP 130/72 Blood Pressure Location Lt brachial Pulse 78 Intake Visit Reasons: follow up echo, event monitor Intake Note: follow up echo , monitor Allergies amoxicillin [AMOXICILLIN] Allergy (Severe, Verified 12/29/23 15:03) Anaphylaxis clindamycin [CLINDAMYCIN] Allergy (Unknown, Verified 12/29/23 15:03) UNKNOWN erythromycin base [ERYTHROMYCIN BASE] Allergy (Unknown, Verified 12/29/23 15:03) UNKNOWN ibuprofen Adverse Reaction (Intermediate, Verified 12/29/23 15:03) pain nitrofurantoin Adverse Reaction (Intermediate, Verified 12/29/23 15:03) lightheaded, sick NSAIDS (Non-Steroidal Anti-Inflamma Adverse Reaction (Intermediate, Verified 12/29/23 15:03) nausea, GI pain Sulfa (Sulfonamide Antibiotics) Adverse Reaction (Intermediate, Verified 12/29/23 15:03) Nausea and Vomiting ciprofloxacin [Cipro] Adverse Reaction (Mild, Verified 12/29/23 15:03) Diarrhea HPI HPI Comments History of Present Illness Details 53-year-old female presents today for a follow-up after testing. She had an echocardiogram and cardiac event monitor. She reports she has been doing well but still feels the intermittent palpitations. She reports these are bothersome. She reports a higher stress career and not taking in much caffeine. Patient reports she was ill when she wore the monitor therefore not doing her usual daily acitivties. [facility] Medical History Family history of pancreatic cancer Internal and external hemorrhoids without complication Intermittent palpitations Spasmodic torticollis Vertigo Migraine headache Surgical History Hx of colonoscopy History of esophagogastroduodenoscopy (EGD) History of endometrial ablation Family History Mother COPD (chronic obstructive pulmonary disease) Father No problems noted. Maternal Grandmother Pancreatic cancer, Onset Age: 57 Paternal Aunt Pancreatic cancer, Onset Age: 83 Father Pancreatic cancer, Onset Age: 57 Other Substance use disorder Social History Housing: House Alcohol intake: never Patient Tobacco Use Status: Never used Tobacco e-Cigarette/Vaping Use: Never Used Second Hand Smoke Exposure: No service: No Current occupational status: employed Cognitive needs: No Hearing needs: No Vision needs: No Review of Systems Const Denies weakness ENT Denies dizziness Card Denies chest pain, Denies chest pain with activity, Denies syncope, Denies rapid heart rate, Denies pedal edema, Denies edema, Denies leg edema, Denies lighth eadedness, Denies palpitations, Denies dyspnea, Denies dyspnea on exertion and Denies orthopnea Resp Denies cough, Denies dyspnea and Denies dyspnea on exertion GI Denies hematochezia and Denies change in stool character Musc Denies abnormal gait, Denies muscle cramps, Denies muscle weakness, Denies numbness, Denies radiating pain into limb and Denies tingling Neuro Denies abnormal gait, Denies dizziness, Denies syncope, Denies numbness, Denies tingling and Denies weakness Endo Denies palpitations Physical Exam Vital Signs: Last Vital Signs Pulse 78 02/02/24 14:39 BP 130/72 02/02/24 14:39 BMI result Body Mass Index 21.1 Const General: healthy appearing and no acute distress Orientation/consciousness: patient oriented x3 HEENT Head: Yes normal to inspection Eyes General: appearance normal, both eyes and all related structures Neck Neck: Yes normal visual inspection Chest Chest palpation & inspection: normal inspection of the chest Resp Effort & Inspection: normal respiratory effort Auscultation: clear to auscultation bilaterally Cardio Jugular venous distension: no JVD Palpation: normal PMI Rate: regular rate Rhythm: regular rhythm Heart sounds: S1 normal heart sound present, S2 normal heart sound present, no click, no gallops, no murmurs and no rubs GI Inspection: Yes normal to inspection Palpation (GI): Soft to palpation Skin General skin exam: no rashes or lesions noted Neuro General: patient oriented x3 Extrem General: Yes normal to inspection Psych Appearance: grossly normal Results Reviewed Results Reviewed: Echo: Conclusions: - Essentially normal study Holter: Conclusion: 1. Patient was monitored for total period of 13 days 2. Baseline was normal sinus rhythm with average heart of 84 beats per minute 3. No significant pauses noted 4. Rare PACs noted 5. Patient marked the counter 5 times with 2 symptoms reported in the diary, of erratic heartbeat, markers correlated with either sinus rhythm or sinus tachycardia. One of the markers correlated with PACs Assessment & Plan Assessment & Plan (1) Intermittent palpitations: Code(s): R00.2 - Palpitations Plan Holter showed rare PACs with average heart rate of 84 bpm. Echo was essentially normal. Discussed triggers and treatments. Discussed good sleep hygiene, stress reduction, and stimulant avoidance such as caffeine. Her biggest barrier is stress related to her workplace. Patient is wary on Beta Pradeep use due to not tolerating propranolol. Continue to track episodes of palpitations. 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 Sooner if needed. Coding Level of Care Code Est Pt Level 3 (71138) Diagnoses Intermittent palpitations R00.2
== END 2024-02-02 15:39 | disposition home or self-care (01) ==
PROVIDERS: PCP Internal Medicine; Visit Provider Nurse Practitioner
DX: R00.2 Palpitations (principal)
CPT/HCPCS: 99213

== ENCOUNTER → 2024-02-02 14:22 | Outpatient (BNVA) | payer BC, SELFPAY | PROVIDERS: PCP Internal Medicine; Visit Provider Nurse Practitioner | DX: R00.2 Palpitations (principal) ==

== ENCOUNTER 2024-04-07 10:53 | Outpatient (AMB) | payer BC, SELFPAY ==
--- NOTE | 2024-04-07 11:00 | MHC.OFFVIS ---
Vital Signs 04/07/24 11:01 Height 5 ft 3 in Weight 119 lb BMI 21.1 BP 128/70 Blood Pressure Location Rt brachial Position Sitting Respiration 16 Pulse 76 Pulse Source Pulse Oximeter Intake Visit Reasons: Botox - Confirmed Intake Note: Pt presents to the office for Botox injections. Welt Cutter Required: No Allergies amoxicillin [AMOXICILLIN] Allergy (Severe, Verified 04/07/24 11:00) Anaphylaxis clindamycin [CLINDAMYCIN] Allergy (Unknown, Verified 04/07/24 11:00) UNKNOWN erythromycin base [ERYTHROMYCIN BASE] Allergy (Unknown, Verified 04/07/24 11:00) UNKNOWN ibuprofen Adverse Reaction (Intermediate, Verified 04/07/24 11:00) pain nitrofurantoin Adverse Reaction (Intermediate, Verified 04/07/24 11:00) lightheaded, sick NSAIDS (Non-Steroidal Anti-Inflamma Adverse Reaction (Intermediate, Verified 04/07/24 11:00) nausea, GI pain Sulfa (Sulfonamide Antibiotics) Adverse Reaction (Intermediate, Verified 04/07/24 11:00) Nausea and Vomiting ciprofloxacin [Cipro] Adverse Reaction (Mild, Verified 04/07/24 11:00) Diarrhea Medication List - Last Reconciled 04/07/24 by Beena Bergman MD betamethasone dipropionate 0.05% 1 appl topical BID PRN vzeehndubm-djgltzfnkilbf-yewq 50-325-40 mg 1 tab PO Q4H PRN cyclobenzaprine 10 mg PO BEDTIME cyclosporine 0.05% (Restasis) 1 drp ophthalmic (eye) DAILY estradiol 1 patch transdermal 2XW meclizine 25 mg PO DAILY PRN 30 days onabotulinumtoxinA (Botox) 200 units IM ONCE 3 months onabotulinumtoxinA (Botox) to be injected by physician to neck muscles q 90 days sumatriptan succinate (Imitrex) 50 mg PO ONCE PRN zolpidem 10 mg PO BEDTIME PRN HPI Comments Details: ? 53y/o female comes for treatment of spasmodic torticollis and migraines with botox . Since starting on Botox the patient has had more than 50% reduction in the number of migraine days . Prior to Botox Number of migraine days /month- 25-30 Intensity- 10/10 Uiflwfafh-3-0/week ER- multiple visits Post Botox Numbe rof migraine days- 10-12 days/month Intensity- 5-8/10 ER - none Intensity - decreased use of medications- less Lats injection- 10/10 ??? Most frequent reported adverse reactions following injection of botox for chronic migraine include neck pain (9%), headache(5%), eyelid ptosis(4%), migraine(4%), muscular weakness(4%), musculuskeletal stiffness(4%), bronchitis(3%), injection site pain (3%), musculoskeletal pain(3%), myalgia(3%), facial paresis(2%), HTN(2%) and muscle spasms(2%) were discussed in detail. ??? Botulinum toxin typeA 100units X 3 Lot no C [id number] expiration January 2026 was diluted with 4 cc of normal saline . ??? Muscles injected- ??? Frontalis 4 sites ? Storage Battery Inspector And Tester- 2 sites ??? Temporalis- 6 sites ? 5 units each ??? Trapezius - right 30 units ??? Left 30 units ??? left levator 50units units right levator 25 units right splenius 50 units ??? Total use- 300units ??? [facility] Medical History Family history of pancreatic cancer Internal and external hemorrhoids without complication Intermittent palpitations Spasmodic torticollis Vertigo Migraine headache Surgical History Hx of colonoscopy History of esophagogastroduodenoscopy (EGD) History of endometrial ablation Family History Mother COPD (chronic obstructive pulmonary disease) Father No problems noted. Maternal Grandmother Pancreatic cancer, Onset Age: 57 Paternal Aunt Pancreatic cancer, Onset Age: 83 Father Pancreatic cancer, Onset Age: 57 Other Substance use disorder Social History Housing: House Alcohol intake: never Patient Tobacco Use Status: Never used Tobacco e-Cigarette/Vaping Use: Never Used Second Hand Smoke Exposure: No service: No Current occupational status: employed Cognitive needs: No Hearing needs: No Vision needs: No Review of Systems Neuro Denies Abnormal speech present Physical Exam Vital Signs: Last Vital Signs Pulse 76 04/07/24 11:01 Resp 16 04/07/24 11:01 BP 128/70 04/07/24 11:01 BMI result Body Mass Index 21.1 Const General: comfortable and no acute distress Orientation/consciousness: patient oriented x3 HEENT Other: Unremarkable Head: Yes normal to inspection Neck Neck: Yes normal visual inspection Chest Chest palpation & inspection: normal inspection of the chest Resp Auscultation: clear to auscultation bilaterally Cardio Palpation: normal PMI Heart sounds: S1 normal heart sound present, S2 normal heart sound present, no gallops, no murmurs and no rubs GI Palpation (GI): Soft to palpation Back/Spine/Pelvis Other: unremarkable Skin General skin exam: no rashes or lesions noted Neuro General: patient oriented x3 Speech: No Abnormal speech present Extrem General: Yes normal to inspection Psych Mental Status: mental status grossly normal Office Procedures Botulinum toxin Injection 99168 - Dystonia Procedure code (CPT) selection complete Office Meds onabotulinumtoxinA 100 unit solution for injection Performing Provider: Beena Bergman MD Performing Location: [facility] [place] [facility] Administered by: Beena Bergman MD on 04/07/24 12:04 Dose Route Admin Location Dispensed Lot Number Expiration Date [facility] L[employer] 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 300 unit IM 300 units [id number] 01/17/26 5907-1104-87 [employer] Comments: see HPI Assessment & Plan Assessment & Plan (1) Spasmodic torticollis: Code(s): G24.3 - Spasmodic torticollis Category: Medical (2) Chronic migraine without aura: Code(s): G43.709 - Chronic migraine without aura, not intractable, without status migrainosus Category: Medical (3) Migraine with aura, intractable, without status migrainosus: Comment: she has more than 50% reduction in migraines since starting treatment with botox Code(s): G43.119 - Migraine with aura, intractable, without status migrainosus Category: Medical Plan Patient tolerated the procedure well she will call with any side effects ANti JESSICA and Ampiphysin antibody levels- normal Orders: Orders AMB Botulinum toxin Injection - Patient Supplied Today G24.3 - Spasmodic torticollis Medications: New onabotulinumtoxinA 100 units IM ONCE 3 ea 0RF spasmodic torticollis G24.3 - Spasmodic torticollis Coding Level of Care Code Est Pt Level 1 (35213) Diagnoses Spasmodic torticollis G24.3 Chronic migraine without aura G43.709 Migraine with aura, intractable, without status migrainosus G43.119 CPT Codes Botox Injection - Botox 4: 06992 - Dystonia ([id number])
[2024-04-07 11:01] VITALS: BP 128/70; PULSE 76; RESP 16; BMI 21.1
== END 2024-04-07 12:02 | disposition home or self-care (01) ==
PROVIDERS: PCP Internal Medicine; Visit Provider Psychiatry & Neurology Neurology
DX: G43.E19 Chronic migraine with aura, intractable, without status migrainosus (principal)
CPT/HCPCS: 64615

== ENCOUNTER → 2024-04-07 10:53 | Outpatient (BNVA) | payer BC, SELFPAY | PROVIDERS: PCP Internal Medicine; Visit Provider Psychiatry & Neurology Neurology | DX: G24.3 Spasmodic torticollis (principal); G43.709 Chronic migraine without aura, not intractable, without status migrainosus; G43.119 Migraine with aura, intractable, without status migrainosus | CPT/HCPCS: 64615; 99211; J0585 ==

== ENCOUNTER 2024-05-10 09:21 | Outpatient (REF) | payer BC, SELFPAY | END 2024-05-10 09:22 | disposition home or self-care (01) | LOC: HO.MAMMO 09:21 | PROVIDERS: PCP Internal Medicine; Visit Provider Internal Medicine | DX: Z12.31 Encounter for screening mammogram for malignant neoplasm of breast (principal) | CPT/HCPCS: 77063; 77067 ==

== ENCOUNTER → 2024-05-10 09:30 | Outpatient (BNV) | payer BC, SELFPAY | PROVIDERS: PCP Internal Medicine; Visit Provider Radiology Diagnostic Radiology | DX: Z12.31 Encounter for screening mammogram for malignant neoplasm of breast (principal) | CPT/HCPCS: 77063; 77067 ==

== ENCOUNTER 2024-05-16 10:34 | Outpatient (AMB) | payer BC, SELFPAY ==
[2024-05-16 10:38] VITALS: BP 120/68; PULSE 84; O2SAT 98; BMI 19.3
--- NOTE | 2024-05-16 10:38 | A.OFFPC_ITS ---
Vital Signs 05/16/24 10:38 Height 5 ft 3 in Weight 109 lb BMI 19.3 BP 120/68 Blood Pressure Location Lt brachial Position Sitting Pulse 84 Pulse Source Pulse Oximeter Pulse Oximetry (%) 98 Oxygen Delivery Method Room Air Intake Visit Reasons: pe Funds Development Director Required: No Duck Bill Operator: Not Required per policy Accompanied by: Self / Same As Patient Allergies amoxicillin [AMOXICILLIN] Allergy (Severe, Verified 05/16/24 10:39) Anaphylaxis clindamycin [CLINDAMYCIN] Allergy (Unknown, Verified 05/16/24 10:39) UNKNOWN erythromycin base [ERYTHROMYCIN BASE] Allergy (Unknown, Verified 05/16/24 10:39) UNKNOWN ibuprofen Adverse Reaction (Intermediate, Verified 05/16/24 10:39) pain nitrofurantoin Adverse Reaction (Intermediate, Verified 05/16/24 10:39) lightheaded, sick NSAIDS (Non-Steroidal Anti-Inflamma Adverse Reaction (Intermediate, Verified 05/16/24 10:39) nausea, GI pain Sulfa (Sulfonamide Antibiotics) Adverse Reaction (Intermediate, Verified 05/16/24 10:39) Nausea and Vomiting ciprofloxacin [Cipro] Adverse Reaction (Mild, Verified 05/16/24 10:39) Diarrhea Medication List - Last Reconciled 05/16/24 by Danie Ross MD betamethasone dipropionate 0.05% 1 appl topical BID PRN lwqtkbnbks-fowbyqriloqky-ofbm 50-325-40 mg 1 tab PO Q4H PRN cyclobenzaprine 10 mg PO BEDTIME cyclosporine 0.05% (Restasis) 1 drp ophthalmic (eye) DAILY estradiol 1 patch transdermal 2XW meclizine 25 mg PO DAILY PRN 30 days onabotulinumtoxinA (Botox) 200 units IM ONCE 3 months onabotulinumtoxinA (Botox) to be injected by physician to neck muscles q 90 days sumatriptan succinate (Imitrex) 50 mg PO ONCE PRN zolpidem 10 mg PO BEDTIME PRN Tobacco use date assessed: 11/27/23 Dental Screening Dental Screen Date: 11/27/23 HPI pe HPI Details migraine headaches; stable PFSH Medical History Family history of pancreatic cancer Internal and external hemorrhoids without complication Intermittent palpitations Spasmodic torticollis Vertigo Migraine headache Surgical History Hx of colonoscopy History of esophagogastroduodenoscopy (EGD) History of endometrial ablation Family History Mother COPD (chronic obstructive pulmonary disease) Father No problems noted. Maternal Grandmother Pancreatic cancer, Onset Age: 57 Paternal Aunt Pancreatic cancer, Onset Age: 83 Father Pancreatic cancer, Onset Age: 57 Other Substance use disorder Social History Housing: House Alcohol intake: never Patient Tobacco Use Status: Never used Tobacco e-Cigarette/Vaping Use: Never Used Second Hand Smoke Exposure: No service: No Current occupational status: employed Cognitive needs: No Hearing needs: No Vision needs: No Questionnaire PHQ-9 Over the last 2 weeks, how often have you been bothered by any of the following problems? 1. Little interest or pleasure in doing things: not at all 2. Feeling down, depressed, or hopeless: not at all 3. Trouble falling or staying asleep, or sleeping too much: not at all 4. Feeling tired or having little energy: not at all 5. Poor appetite or overeating: not at all 6. Feeling bad about yourself - or that you are a failure or have let yourself or your family down: not at all 7. Trouble concentrating on things, such as reading the newspaper or watching television: not at all 8. Moving or speaking so slowly that other people could have noticed. Or the opposite - being so fidgety or restless that you have been moving around a lot more than usual: not at all 9. Thoughts that you would be better off or of hurting yourself in some way: not at all Total score: 0 Depression Screening Interpretation: Negative Depression Screening Done: Yes Source: Developed by Drs. Nahun Jett, Cara Marr, Moreno Reich and colleagues, with an educational gelacio from [email or web address]. Thrive Questionnaire Date Thrive assessed: 05/16/24 I am a: Patient What is your living situation today?: I have a steady place to live Within the past 12 months, did the food you bought not last and you didn't have the money to get more?: Never true Within the past 12 months, did you worry whether your food would run out before you got money to buy more?: Never true Do you have trouble paying for medicines?: No Do you have trouble getting transportation to medical appointments?: No Do you have trouble paying your heating and electricity bill?: No Do you have trouble taking care of your child, family member or friend?: No Do you have trouble with day-to-day activities such as bathing, preparing meals, shopping, managing finances, etc.?: No Are you currently unemployed and looking for a job?: No Are you interested in more education?: No Please select the resources that you would like help with: None THRIVE Score: 0 JESSICA-7 AMB Questionnaire JESSICA-7 Date JESSICA - 7 assessed: 05/16/24 Feeling nervous, anxious, or on edge: 0 = Not at all Not being able to stop or control worryin = Not at all Worrying too much about different things: 0 = Not at all Trouble relaxin = Not at all Being so restless that it is hard to sit still: 0 = Not at all Becoming easily annoyed or irritable: 0 = Not at all Feeling afraid as if something awful might happen: 0 = Not at all Total JESSICA-7 score (0-4 normal; 5-9 mild; 10-14 moderate; 15-21 severe): 0 Source: Developed by Drs. Nahun Jett, Cara Marr, Moreno Reich and colleagues, with an educational gelacio from [email or web address]. Review of Systems Const Denies chills, Denies fatigue, Denies headache(s) and Denies weight loss Eyes Denies change in vision, Denies diplopia and Denies eye pain ENT Denies vertigo, Denies dizziness, Denies headache(s) and Denies nasal discharge Card Denies chest pain, Denies rapid heart rate and Denies dyspnea on exertion Resp Denies chest congestion, Denies cough, Denies pain with cough and Denies dyspnea on exertion GI Denies abdominal pain, Denies hematochezia and Denies change in bowel habits Musc Denies myalgias, Denies arthralgias and Denies joint swelling Skin/Breast Denies lesions and Denies unusual bruising Neuro Denies vertigo, Denies dizziness, Denies headache(s) and Denies focal weakness Endo Denies fatigue Physical exam (Primary Care) Vital Signs: Last Vital Signs Pulse 84 05/16/24 10:38 BP 120/68 05/16/24 10:38 Pulse Ox 98 05/16/24 10:38 Oxygen Delivery Method Room Air 05/16/24 10:38 BMI result Body Mass Index 19.3 Tobacco/Smoking Status: Tobacco use Status Tobacco use date assessed 11/27/23 05/16/24 10:40 Patient Tobacco Use Status Never used Tobacco 05/16/24 10:40 e-Cigarette/Vaping Use Never Used 05/16/24 10:40 PHQ-9: PHQ-9 Score PHQ-9: Total score 0 05/16/24 12:45 Depression Screening Interpretation: Negative Thrive Assessment: Date of Thrive Assessment Date Thrive assessed 05/16/24 05/16/24 10:40 Const General: cooperative, healthy appearing and no acute distress Orientation/consciousness: oriented to person, oriented to place and oriented to time HENMT Head: Yes normal to inspection, Yes normocephalic and Yes atraumatic Mouth: Normal oral and palatal mucosa present and tongue normal Throat: Yes posterior oropharynx normal and Yes uvula midline Eyes General: appearance normal, both eyes and all related structures Neck Neck: Yes normal visual inspection, Yes full ROM and Yes no lymphadenopathy Thyroid: Thyroid normal Carotids: normal carotid upstroke Chest Chest palpation & inspection: normal inspection of the chest Resp Effort & Inspection: normal respiratory effort and able to speak in complete sentences Auscultation: clear to auscultation bilaterally Cardio Jugular venous distension: no JVD Palpation: normal PMI Rate: regular rate Rhythm: regular rhythm Heart sounds: S1 normal heart sound present and S2 normal heart sound present GI Inspection: Yes normal to inspection Palpation (GI): Soft to palpation and No hepatosplenomegaly present Auscultation: normal bowel sounds General: Yes no CVA tenderness Back/Spine/Pelvis Back: no CVA tenderness Skin General skin exam: no rashes or lesions noted Neuro General: oriented to person, oriented to place and oriented to time Extrem General: Yes normal to inspection and Yes full ROM Assessment and Plan Assessment & Plan (1) Physical exam: Code(s): Z00.00 - Encounter for general adult medical examination without abnormal findings Plan: do labs (2) Migraine headache: Comment: stable; same meds Code(s): G43.909 - Migraine, unspecified, not intractable, without status migrainosus Plan: stable; same rx Orders: Orders Lipid Panel Today Z13.220 - Encounter for screening for lipoid disorders Comprehensive Boaz. Panel Fast Today Z13.9 - Encounter for screening, unspecified Complete Blood Count Auto Diff Today Z13.0 - Encounter for screening for diseases of the blood and blood-forming organs and certain disorders involving the immune mechanism Thyroid Stimulating Hormone Today Z13.29 - Encounter for screening for other suspected endocrine disorder Coding Level of Care Code Est Pt Prev Care 40-64y(27796) Diagnoses Physical exam Z00.00 Migraine headache G43.909 Additional Codes PHQ-9 - 06901 - PHQ-9 Billing: ([id number])
== END 2024-05-16 11:07 | disposition home or self-care (01) ==
PROVIDERS: PCP Internal Medicine; Visit Provider Internal Medicine
DX: Z00.00 Encounter for general adult medical examination without abnormal findings (principal); G43.909 Migraine, unspecified, not intractable, without status migrainosus
CPT/HCPCS: 99396

== ENCOUNTER 2024-05-19 07:31 | Outpatient (REF) | payer BC, SELFPAY ==
[2024-05-19 11:02] LABS: MANUAL DIFF FLAG NO
[2024-05-19 11:20] LABS: Basophils Percent Auto 0.5 % (0-2); Eosinophils Absolute Auto 0.5 X10*3/uL (0.0-0.4); Eosinophils Percent Auto 7.4 % (0-4); Hematocrit 43.4 % (37.0-47.0); Hemoglobin 14.4 g/dl (12.0-16.0); Imm Gran Abs Auto 0.01 X10*3/uL (0.00-0.03); Imm Gran Pct Auto 0.2 % (0.0-0.4); Lymphocytes Absolute Auto 2.6 X10*3/uL (1.2-4.9); Lymphocytes Percent Auto 43.1 % (20-40); Mean Corpuscular HGB Conc 33.2 g/dl (31.0-35.0); Mean Corpuscular Hemoglobin 30.4 pg (27.0-33.0); Mean Corpuscular Volume 91.6 fL (80.0-98.0); Mean Platelet Volume 10.2 fL (9.4-12.3); Monocytes Absolute Auto 0.7 X10*3/uL (0.1-1.2); Monocytes Percent Auto 11.3 % (2-11); Neutrophils Absolute Auto 2.3 x10*3/uL (2.0-8.3); Neutrophils Percent Auto 37.5 % (45-73); Platelet Count 243 X10*3/uL (160-400); Red Blood Count 4.74 X10*6/uL (4.20-5.50); Red Cell Distribution Width 12.1 % (11.0-16.0); White Blood Count 6.1 X10*3/uL (4.8-10.8)
[2024-05-19 11:42] LABS: Alanine Aminotransferase 20 U/L (0-31); Albumin Level 4.4 g/dL (3.5-5.0); Alkaline Phosphatase 114 U/L (39-117); Anion Gap 11 (12-20); Aspartate Amino Transferase 26 U/L (5-31); Bilirubin Total 0.4 mg/dL (0.0-1.0); Blood Urea Nitrogen 12 mg/dL (9-16); Calcium 9.9 mg/dL (8.4-10.2); Carbon Dioxide 29 mmol/L (22-29); Chloride 104 mmol/L (96-108); Cholesterol 242 mg/dL (<200); Estimated Glomerular Filt Rate > 60; Glucose Fasting 81 mg/dL (60-99); HDL Cholesterol 56 mg/dL (>40); LDL Cholesterol Calculated 169 mg/dL (<100); Potassium 3.9 mmol/L (3.3-5.1); Sodium 140 mmol/L (135-145); Total Protein 7.8 g/dL (6.5-8.0); Triglycerides 85 mg/dL (<150)
[2024-05-19 11:50] LABS: Thyroid Stimulating Hormone 1.32 uIU/mL (0.32-4.0)
== END 2024-05-19 07:32 | disposition home or self-care (01) ==
LOC: HO.WFDLDS 07:31
PROVIDERS: Visit Provider Internal Medicine
DX: Z13.9 Encounter for screening, unspecified (principal); Z13.220 Encounter for screening for lipoid disorders; Z13.0 Encounter for screening for diseases of the blood and blood-forming organs and certain disorders involving the immune mechanism; Z13.29 Encounter for screening for other suspected endocrine disorder
CPT/HCPCS: 36415; 80053; 80061; 84443; 85025

== ENCOUNTER 2024-05-23 13:53 | Outpatient (AMB) | payer BC, SELFPAY ==
[2024-05-23 14:21] VITALS: BP 120/64; PULSE 86; BMI 19.7
--- NOTE | 2024-05-23 14:21 | MHC.OFFVIS ---
Vital Signs 05/23/24 14:21 Height 5 ft 3 in Weight 111 lb 1.808 oz BMI 19.7 BP 120/64 Blood Pressure Location Lt brachial Position Sitting Pulse 86 Pulse Source Pulse Oximeter Intake Visit Reasons: fu per AC Development Director Required: No Accompanied by: Self / Same As Patient Allergies amoxicillin [AMOXICILLIN] Allergy (Severe, Verified 05/16/24 10:39) Anaphylaxis clindamycin [CLINDAMYCIN] Allergy (Unknown, Verified 05/16/24 10:39) UNKNOWN erythromycin base [ERYTHROMYCIN BASE] Allergy (Unknown, Verified 05/16/24 10:39) UNKNOWN ibuprofen Adverse Reaction (Intermediate, Verified 05/16/24 10:39) pain nitrofurantoin Adverse Reaction (Intermediate, Verified 05/16/24 10:39) lightheaded, sick NSAIDS (Non-Steroidal Anti-Inflamma Adverse Reaction (Intermediate, Verified 05/16/24 10:39) nausea, GI pain Sulfa (Sulfonamide Antibiotics) Adverse Reaction (Intermediate, Verified 05/16/24 10:39) Nausea and Vomiting ciprofloxacin [Cipro] Adverse Reaction (Mild, Verified 05/16/24 10:39) Diarrhea Medication List - Last Reconciled 05/23/24 by Nic Vivas MD betamethasone dipropionate 0.05% 1 appl topical BID PRN hhpofdjhov-keamnzehksmhl-zemx 50-325-40 mg 1 tab PO Q4H PRN cyclobenzaprine 10 mg PO BEDTIME cyclosporine 0.05% (Restasis) 1 drp ophthalmic (eye) DAILY estradiol 1 patch transdermal 2XW fexofenadine ([facility] Allergy) 60 mg PO BID meclizine 25 mg PO DAILY PRN 30 days onabotulinumtoxinA (Botox) 200 units IM ONCE 3 months onabotulinumtoxinA (Botox) to be injected by physician to neck muscles q 90 days sumatriptan succinate (Imitrex) 50 mg PO ONCE PRN zolpidem 10 mg PO BEDTIME PRN HPI Comments Details: Lorraine returns for follow-up. In the past, she was seen regarding palpitations. 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 She was having intermittent palpitations every few weeks or months. She felt as though her chest wall muscles were fasciculating. No other cardiac symptoms. She underwent workup including echocardiogram and Holter. More recently, no new episodes and she is feeling better. [facility] Medical History Family history of pancreatic cancer Internal and external hemorrhoids without complication Intermittent palpitations Spasmodic torticollis Vertigo Migraine headache Surgical History Hx of colonoscopy History of esophagogastroduodenoscopy (EGD) History of endometrial ablation Family History Mother COPD (chronic obstructive pulmonary disease) Father No problems noted. Maternal Grandmother Pancreatic cancer, Onset Age: 57 Paternal Aunt Pancreatic cancer, Onset Age: 83 Father Pancreatic cancer, Onset Age: 57 Other Substance use disorder Social History Housing: House Alcohol intake: never Patient Tobacco Use Status: Never used Tobacco e-Cigarette/Vaping Use: Never Used Second Hand Smoke Exposure: No service: No Current occupational status: employed Cognitive needs: No Hearing needs: No Vision needs: No Review of Systems Const Denies chills, Denies fatigue, Denies fever(s), Denies weight gain and Denies weight loss ENT Denies dizziness Card Denies chest pain, Denies leg edema, Denies lightheadedness, Denies palpitations, Denies dyspnea on exertion, Denies orthopnea and Denies other Resp Denies cough and Denies dyspnea on exertion GI Denies hematochezia and Denies change in stool character Musc Denies abnormal gait, Denies muscle weakness, Denies numbness, Denies radiating pain into limb and Denies tingling Neuro Denies abnormal gait, Denies dizziness, Denies numbness and Denies tingling Endo Denies fatigue and Denies palpitations Physical Exam Vital Signs: Last Vital Signs Pulse 86 05/23/24 14:21 BP 120/64 05/23/24 14:21 BMI result Body Mass Index 19.7 Const General: comfortable and no acute distress Orientation/consciousness: patient oriented x3 HEENT Other: Unremarkable Head: Yes normal to inspection Neck Neck: Yes normal visual inspection Chest Chest palpation & inspection: normal inspection of the chest Resp Auscultation: clear to auscultation bilaterally Cardio Palpation: normal PMI Heart sounds: S1 normal heart sound present, S2 normal heart sound present, no gallops, no murmurs and no rubs GI Palpation (GI): Soft to palpation Back/Spine/Pelvis Other: unremarkable Skin General skin exam: no rashes or lesions noted Neuro General: patient oriented x3 Extrem General: Yes normal to inspection Psych Mental Status: mental status grossly normal Assessment & Plan Assessment & Plan (1) Intermittent palpitations: Code(s): R00.2 - Palpitations Category: Medical Plan EKG shows sinus rhythm at 78/Min; no significant ST-T changes and otherwise unremarkable. Normal SC and corrected QT. Echocardiogram with LVEF of 60-65%; no significant valvular issues and otherwise unremarkable. In the Holter monitor, underlying sinus rhythm with an average rate of 84/Min. Rare PACs. Patient's symptoms correlate with sinus rhythm, sinus tachycardia and supraventricular ectopy. Based on the above testing, mainly reassurance. No medications at this time. If any recurrence, she will contact us. Coding Level of Care Code Est Pt Level 3 (32206) Diagnoses Intermittent palpitations R00.2
== END 2024-05-23 14:40 | disposition home or self-care (01) ==
PROVIDERS: PCP Internal Medicine; Visit Provider Internal Medicine
DX: R00.2 Palpitations (principal)
CPT/HCPCS: 99213

== ENCOUNTER → 2024-05-23 13:53 | Outpatient (BNVA) | payer BC, SELFPAY | PROVIDERS: PCP Internal Medicine; Visit Provider Internal Medicine ==

== ENCOUNTER 2024-07-26 14:35 | Outpatient (AMB) | payer BC, SELFPAY ==
--- NOTE | 2024-07-26 14:43 | MHC.OFFVIS ---
Vital Signs 07/26/24 14:46 Height 5 ft 3 in Weight 111 lb 6 oz BMI 19.7 BP 120/70 Blood Pressure Location Rt brachial Position Sitting Pulse 87 Pulse Source Pulse Oximeter Pulse Oximetry (%) 99 Oxygen Delivery Method Room Air Intake Visit Reasons: BOTOX Intake Note: Patient presents for a botox follow up. ( Chronic migraines ) Dry Color Mixer Required: No Allergies amoxicillin [AMOXICILLIN] Allergy (Severe, Verified 07/26/24 14:51) Anaphylaxis clindamycin [CLINDAMYCIN] Allergy (Unknown, Verified 07/26/24 14:51) UNKNOWN erythromycin base [ERYTHROMYCIN BASE] Allergy (Unknown, Verified 07/26/24 14:51) UNKNOWN ibuprofen Adverse Reaction (Intermediate, Verified 07/26/24 14:51) pain nitrofurantoin Adverse Reaction (Intermediate, Verified 07/26/24 14:51) lightheaded, sick NSAIDS (Non-Steroidal Anti-Inflamma Adverse Reaction (Intermediate, Verified 07/26/24 14:51) nausea, GI pain Sulfa (Sulfonamide Antibiotics) Adverse Reaction (Intermediate, Verified 07/26/24 14:51) Nausea and Vomiting ciprofloxacin [Cipro] Adverse Reaction (Mild, Verified 07/26/24 14:51) Diarrhea Medication List - Last Reconciled 07/26/24 by Beena Bergman MD betamethasone dipropionate 0.05% 1 appl topical BID PRN qoynvgwrey-gihxxxumwftup-bklw 50-325-40 mg 1 tab PO Q4H PRN cyclobenzaprine 10 mg PO BEDTIME cyclosporine 0.05% (Restasis) 1 drp ophthalmic (eye) DAILY estradiol 1 patch transdermal 2XW fexofenadine (Children[facility]ma Allergy) 60 mg PO BID meclizine 25 mg PO DAILY PRN 30 days onabotulinumtoxinA (Botox) 200 units IM ONCE 3 months onabotulinumtoxinA (Botox) to be injected by physician to neck muscles q 90 days sumatriptan succinate (Imitrex) 50 mg PO ONCE PRN zolpidem 10 mg PO BEDTIME PRN HPI Comments Details: ? 53y/o female comes for treatment of spasmodic torticollis and migraines with botox . Since starting on Botox the patient has had more than 50% reduction in the number of migraine days . Prior to Botox Number of migraine days /month- 25-30 Intensity- 10/10 Izmebcsgx-9-0/week ER- multiple visits Post Botox Numbe rof migraine days- 10-12 days/month Intensity- 5-8/10 ER - none Intensity - decreased use of medications- less Last injection- 04/11 ??? Most frequent reported adverse reactions following injection of botox for chronic migraine include neck pain (9%), headache(5%), eyelid ptosis(4%), migraine(4%), muscular weakness(4%), musculuskeletal stiffness(4%), bronchitis(3%), injection site pain (3%), musculoskeletal pain(3%), myalgia(3%), facial paresis(2%), HTN(2%) and muscle spasms(2%) were discussed in detail. ??? Botulinum toxin typeA 100units X 3 Lot no [id number] expiration July 2026 was diluted with 4 cc of normal saline . ??? Muscles injected- ??? Frontalis 4 sites ? Blind Stitch 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- 2 sites ??? Temporalis- 6 sites ? 5 units each ??? Trapezius - right 30 units ??? Left 30 units ??? left levator 50units units right levator 25 units right splenius 50 units ??? Total use- 300units ??? PFSH Medical History Family history of pancreatic cancer Internal and external hemorrhoids without complication Intermittent palpitations Spasmodic torticollis Vertigo Migraine headache Surgical History Hx of colonoscopy History of esophagogastroduodenoscopy (EGD) History of endometrial ablation Family History Mother COPD (chronic obstructive pulmonary disease) Father No problems noted. Maternal Grandmother Pancreatic cancer, Onset Age: 57 Paternal Aunt Pancreatic cancer, Onset Age: 83 Father Pancreatic cancer, Onset Age: 57 Other Substance use disorder Social History Housing: House Alcohol intake: never Patient Tobacco Use Status: Never used Tobacco e-Cigarette/Vaping Use: Never Used Second Hand Smoke Exposure: No service: No Current occupational status: employed Cognitive needs: No Hearing needs: No Vision needs: No Physical Exam Vital Signs: Last Vital Signs Pulse 87 07/26/24 14:46 BP 120/70 07/26/24 14:46 Pulse Ox 99 07/26/24 14:46 Oxygen Delivery Method Room Air 07/26/24 14:46 BMI result Body Mass Index 19.7 Const General: cooperative, healthy appearing and comfortable Nutritional Appearance: average body habitus Orientation/consciousness: patient oriented x3 Eyes Pupils: Equal, round and reactive pupils present Neck Other: antecollis Neuro General: patient oriented x3, gait normal, tone normal and moves all extremities Cranial nerves: Yes CN's II-XII intact bilaterally, Yes Facial sensation intact/muscles of mastication intact and Yes Equal, round and reactive pupils present Office Procedures Botulinum toxin Injection 24905 - Dystonia Procedure code (CPT) selection complete Office Meds onabotulinumtoxinA 100 unit solution for injection Performing Provider: Beena Bergman MD Performing Location: [facility] Administered by: Beena Bergman MD on 07/27/24 07:47 Dose Route Admin Location Dispensed Lot Number Expiration Date [facility] Operating Table Assembler 300 unit IM 300 units [id number] 07/19/26 [id number] [employer] Comments: see hpi Assessment & Plan Assessment & Plan (1) Spasmodic torticollis: Code(s): G24.3 - Spasmodic torticollis Category: Medical (2) Chronic migraine without aura: Code(s): G43.709 - Chronic migraine without aura, not intractable, without status migrainosus Category: Medical Qualifiers: Intractability: intractable Status migrainosus presence: without status migrainosus Qualified Code(s): G43.719 - Chronic migraine without aura, intractable, without status migrainosus (3) Migraine with aura, intractable, without status migrainosus: Comment: she has more than 50% reduction in migraines since starting treatment with botox Code(s): G43.119 - Migraine with aura, intractable, without status migrainosus Category: Medical Plan Patient tolerated the procedure well she will call with any side effects ANti JESSICA and Ampiphysin antibody levels- normal Orders: Orders AMB Botulinum toxin Injection - Patient Supplied 07/26/24 G24.3 - Spasmodic torticollis Medications: New onabotulinumtoxinA 100 units IM ONCE 3 ea 0RF spasmodic torticollis G24.3 - Spasmodic torticollis Coding Level of Care Code Est Pt Level 1 (29616) Diagnoses Spasmodic torticollis G24.3 Intractable chronic migraine without aura and without status migrainosus G43.719 Intractability: intractable Status migrainosus presence: without status migrainosus Migraine with aura, intractable, without status migrainosus G43.119 CPT Codes Botox Injection - Botox 4: 66278 - Dystonia ([id number])
[2024-07-26 14:46] VITALS: BP 120/70; PULSE 87; O2SAT 99; BMI 19.7
== END 2024-07-26 15:22 | disposition home or self-care (01) ==
PROVIDERS: PCP Internal Medicine; Visit Provider Psychiatry & Neurology Neurology
DX: G43.E19 Chronic migraine with aura, intractable, without status migrainosus (principal)
CPT/HCPCS: 64615

== ENCOUNTER → 2024-07-26 14:35 | Outpatient (BNVA) | payer BC, SELFPAY | PROVIDERS: PCP Internal Medicine; Visit Provider Psychiatry & Neurology Neurology | DX: G24.3 Spasmodic torticollis (principal); G43.E19 Chronic migraine with aura, intractable, without status migrainosus | CPT/HCPCS: 64615; 99211; J0585 ==

== ENCOUNTER 2024-11-01 14:57 | Outpatient (AMB) | payer BC, SELFPAY ==
--- NOTE | 2024-11-01 15:00 | MHC.OFFVIS ---
Intake Visit Reasons: BOTOX Intake Note: Patient presents for Botox injection Allergies amoxicillin [AMOXICILLIN] Allergy (Severe, Verified 11/01/24 15:04) Anaphylaxis clindamycin [CLINDAMYCIN] Allergy (Unknown, Verified 11/01/24 15:04) UNKNOWN erythromycin base [ERYTHROMYCIN BASE] Allergy (Unknown, Verified 11/01/24 15:04) UNKNOWN ibuprofen Adverse Reaction (Intermediate, Verified 11/01/24 15:04) pain nitrofurantoin Adverse Reaction (Intermediate, Verified 11/01/24 15:04) lightheaded, sick NSAIDS (Non-Steroidal Anti-Inflamma Adverse Reaction (Intermediate, Verified 11/01/24 15:04) nausea, GI pain Sulfa (Sulfonamide Antibiotics) Adverse Reaction (Intermediate, Verified 11/01/24 15:04) Nausea and Vomiting ciprofloxacin [Cipro] Adverse Reaction (Mild, Verified 11/01/24 15:04) Diarrhea Medication List - Last Reconciled 11/01/24 by Beena Bergman MD betamethasone dipropionate 0.05% 1 appl topical BID PRN [id number]-vxbvgcbivqpyf-sfxg 50-325-40 mg 1 tab PO Q4H PRN cyclobenzaprine 10 mg PO BEDTIME cyclosporine 0.05% (Restasis) 1 drp ophthalmic (eye) DAILY estradiol 1 patch transdermal 2XW fexofenadine (Children[facility] Uma Allergy) 60 mg PO BID meclizine 25 mg PO DAILY PRN 30 days onabotulinumtoxinA (Botox) to be injected by physician to neck muscles q 90 days onabotulinumtoxinA (Botox) 200 units IM ONCE 3 months sumatriptan succinate (Imitrex) 50 mg PO ONCE PRN zolpidem 10 mg PO BEDTIME PRN HPI Comments Details: ? 53y/o female comes for treatment of spasmodic torticollis and migraines with botox . Since starting on Botox the patient has had more than 50% reduction in the number of migraine days . Prior to Botox Number of migraine days /month- 25-30 Intensity- 10/10 Dvvetgxtp-9-6/week ER- multiple visits Post Botox Numbe rof migraine days- 10-12 days/month Intensity- 5-8/10 ER - none Intensity - decreased use of medications- less Last injection- 04/11 ??? Most frequent reported adverse reactions following injection of botox for chronic migraine include neck pain (9%), headache(5%), eyelid ptosis(4%), migraine(4%), muscular weakness(4%), musculuskeletal stiffness(4%), bronchitis(3%), injection site pain (3%), musculoskeletal pain(3%), myalgia(3%), facial paresis(2%), HTN(2%) and muscle spasms(2%) were discussed in detail. ??? Botulinum toxin typeA 100units X 3 Lot no [id number] expiration December 2026 was diluted with 4 cc of normal saline . ??? Muscles injected- ??? Frontalis 4 sites ? [employer]- 2 sites ??? Temporalis- 6 sites ? 5 units each ??? Trapezius - right 30 units ??? Left 30 units ??? left levator 50units units right levator 25 units right splenius 50 units ??? Total use- 300units ??? PFSH Medical History Family history of pancreatic cancer Internal and external hemorrhoids without complication Intermittent palpitations Spasmodic torticollis Vertigo Migraine headache Surgical History Hx of colonoscopy History of esophagogastroduodenoscopy (EGD) History of endometrial ablation Family History Mother COPD (chronic obstructive pulmonary disease) Father No problems noted. Maternal Grandmother Pancreatic cancer, Onset Age: 57 Paternal Aunt Pancreatic cancer, Onset Age: 83 Father Pancreatic cancer, Onset Age: 57 Other Substance use disorder Social History Housing: House Alcohol intake: never Patient Tobacco Use Status: Never used Tobacco e-Cigarette/Vaping Use: Never Used Second Hand Smoke Exposure: No service: No Current occupational status: employed Cognitive needs: No Hearing needs: No Vision needs: No Physical Exam Const General: cooperative, healthy appearing and comfortable Nutritional Appearance: average body habitus Orientation/consciousness: patient oriented x3 Eyes Pupils: Equal, round and reactive pupils present Neck Other: antecollis Neuro General: patient oriented x3, gait normal, tone normal and moves all extremities Cranial nerves: Yes CN's II-XII intact bilaterally, Yes Facial sensation intact/muscles of mastication intact and Yes Equal, round and reactive pupils present Office Procedures Botulinum toxin Injection 38483 - Migraine Procedure code (CPT) selection complete Office Meds onabotulinumtoxinA 100 unit solution for injection Performing Provider: Beena Bergman MD Performing Location: [facility] Administered by: Beena Bergman MD on 11/01/24 15:53 Dose Route Admin Location Dispensed Lot Number Expiration Date [facility] [employer] [employer] 300 unit subcut 300 units [id number] [employer] Comments: see hpi Assessment & Plan Assessment & Plan (1) Spasmodic torticollis: Code(s): G24.3 - Spasmodic torticollis Category: Medical (2) Chronic migraine without aura: Code(s): G43.709 - Chronic migraine without aura, not intractable, without status migrainosus Category: Medical Qualifiers: Status migrainosus presence: without status migrainosus Intractability: intractable Qualified Code(s): G43.719 - Chronic migraine without aura, intractable, without status migrainosus (3) Migraine with aura, intractable, without status migrainosus: Comment: she has more than 50% reduction in migraines since starting treatment with botox Code(s): G43.119 - Migraine with aura, intractable, without status migrainosus Category: Medical Plan Patient tolerated the procedure well she will call with any side effects ANti JESSICA and Ampiphysin antibody levels- normal Orders: Orders AMB Botulinum toxin Injection - Patient Supplied N/C Today G43.719 - Chronic migraine without aura, intractable, without status migrainosus Medications: New onabotulinumtoxinA 100 units subcut ONCE 3 ea 0RF migraine G43.719 - Chronic migraine without aura, intractable, without status migrainosus Coding Level of Care Code Est Pt Level 1 (94871) Diagnoses Spasmodic torticollis G24.3 Intractable chronic migraine without aura and without status migrainosus G43.719 Status migrainosus presence: without status migrainosus Intractability: intractable Migraine with aura, intractable, without status migrainosus G43.119 CPT Codes Botox Injection - Botox 3: 88173 - Migraine ([id number])
== END 2024-11-01 15:24 | disposition home or self-care (01) ==
PROVIDERS: PCP Internal Medicine; Visit Provider Psychiatry & Neurology Neurology
DX: G43.719 Chronic migraine without aura, intractable, without status migrainosus (principal)
CPT/HCPCS: 64615

== ENCOUNTER → 2024-11-01 14:57 | Outpatient (BNVA) | payer BC, SELFPAY | PROVIDERS: PCP Internal Medicine; Visit Provider Psychiatry & Neurology Neurology | DX: G24.3 Spasmodic torticollis (principal); G43.E19 Chronic migraine with aura, intractable, without status migrainosus | CPT/HCPCS: 64615; 99211; J0585 ==

== ENCOUNTER 2024-12-01 13:06 | Outpatient (REF) | payer BC, SELFPAY ==
[2024-12-01 17:50] LABS: Appearance Urine Clear; Color Urine Yellow; Glucose Urine UA Negative (Negative); Leukocyte Esterase Urine Negative (Negative); Nitrite Urine Negative (Negative); PH 6.5 (5.0-9.0); Specific Gravity - Urine <= 1.005 (1.005-1.025); UMIC TRIGGER UACC YES; Urine Blood Small (1+) (Negative); Urine Ketones Negative (Negative); Urine Protein Negative (Neg-Trace)
[2024-12-01 17:53] LABS: Bacteria Urine None Seen (None Seen); Hyaline Casts Urine 0-2 /LPF (0-2); Squamous Epithelial Cell Urine 0-2 /HPF (0-2); WBC Urine 0-5 /HPF (0-5)
== END 2024-12-01 13:07 | disposition home or self-care (01) ==
LOC: HO.LAB 13:06
PROVIDERS: PCP Internal Medicine; Visit Provider Internal Medicine
DX: N39.0 Urinary tract infection, site not specified (principal)
CPT/HCPCS: 81001; 81003; 96127

== ENCOUNTER 2024-12-01 13:06 | Outpatient (AMB) | payer BC, SELFPAY ==
[2024-12-01 13:10] VITALS: BP 134/80; PULSE 90; TEMP 36.3; O2SAT 99; BMI 19.5
--- NOTE | 2024-12-01 13:10 | A.OFFPC_ITS ---
Vital Signs 12/01/24 13:10 Height 5 ft 3 in Weight 110 lb 2 oz BMI 19.5 BP 134/80 Blood Pressure Location Lt brachial Position Sitting Pulse 90 Pulse Source Pulse Oximeter Temp 97.3 F Temp Source Temporal Artery Scan Pulse Oximetry (%) 99 Oxygen Delivery Method Room Air Intake Visit Reasons: Urinary problem Filter Bed Placer Required: No Accompanied by: Self / Same As Patient Allergies amoxicillin [AMOXICILLIN] Allergy (Severe, Verified 12/01/24 13:13) Anaphylaxis clindamycin [CLINDAMYCIN] Allergy (Unknown, Verified 12/01/24 13:13) UNKNOWN erythromycin base [ERYTHROMYCIN BASE] Allergy (Unknown, Verified 12/01/24 13:13) UNKNOWN ibuprofen Adverse Reaction (Intermediate, Verified 12/01/24 13:13) pain nitrofurantoin Adverse Reaction (Intermediate, Verified 12/01/24 13:13) lightheaded, sick NSAIDS (Non-Steroidal Anti-Inflamma Adverse Reaction (Intermediate, Verified 12/01/24 13:13) nausea, GI pain Sulfa (Sulfonamide Antibiotics) Adverse Reaction (Intermediate, Verified 12/01/24 13:13) Nausea and Vomiting ciprofloxacin [Cipro] Adverse Reaction (Mild, Verified 12/01/24 13:13) Diarrhea Medication List - Last Reconciled 12/01/24 by Danie Ross MD azithromycin take 500 mg today (day 1), then 250 mg for 4 days (days 2-5) PO betamethasone dipropionate 0.05% 1 appl topical BID PRN tqjbasjiki-aeewmmsezhghv-hvov 50-325-40 mg 1 tab PO Q4H PRN cyclobenzaprine 10 mg PO BEDTIME cyclosporine 0.05% (Restasis) 1 drp ophthalmic (eye) DAILY estradiol 1 patch transdermal 2XW fexofenadine (Children's Uma Allergy) 60 mg PO BID meclizine 25 mg PO DAILY PRN 30 days onabotulinumtoxinA (Botox) to be injected by physician to neck muscles q 90 days onabotulinumtoxinA (Botox) 200 units IM ONCE 3 months sumatriptan succinate (Imitrex) 50 mg PO ONCE PRN zolpidem 10 mg PO BEDTIME PRN Tobacco use date assessed: 12/01/24 Dental Screening Dental Screen Date: 12/01/24 Did you have a dental visit in the last 12 months?: Yes Did you have a dental problem in the last 6 months where you did not have access to dental care?: No Was dental information given to patient?: Patient has dentist HPI Urinary problem HPI Details UTI; multiple drug allergies PFSH Medical History Family history of pancreatic cancer Internal and external hemorrhoids without complication Intermittent palpitations Spasmodic torticollis Vertigo Migraine headache Surgical History Hx of colonoscopy History of esophagogastroduodenoscopy (EGD) History of endometrial ablation Family History Mother COPD (chronic obstructive pulmonary disease) Father No problems noted. Maternal Grandmother Pancreatic cancer, Onset Age: 57 Paternal Aunt Pancreatic cancer, Onset Age: 83 Father Pancreatic cancer, Onset Age: 57 Other Substance use disorder Social History Housing: House Alcohol intake: never Patient Tobacco Use Status: Never used Tobacco e-Cigarette/Vaping Use: Never Used Second Hand Smoke Exposure: No service: No Current occupational status: employed Cognitive needs: No Hearing needs: No Vision needs: No Questionnaire PHQ-9 Over the last 2 weeks, how often have you been bothered by any of the following problems? 1. Little interest or pleasure in doing things: not at all 2. Feeling down, depressed, or hopeless: not at all 3. Trouble falling or staying asleep, or sleeping too much: not at all 4. Feeling tired or having little energy: not at all 5. Poor appetite or overeating: not at all 6. Feeling bad about yourself - or that you are a failure or have let yourself or your family down: not at all 7. Trouble concentrating on things, such as reading the newspaper or watching television: not at all 8. Moving or speaking so slowly that other people could have noticed. Or the opposite - being so fidgety or restless that you have been moving around a lot more than usual: not at all 9. Thoughts that you would be better off or of hurting yourself in some way: not at all Total score: 0 Depression Screening Interpretation: Negative Depression Screening Done: Yes 86208 - PHQ-9 Billing: Yes Source: Developed by Drs. Nahun Jett, Moreno Herman and colleagues, with an educational gelacio from [employer]. Thrive Questionnaire Date Thrive assessed: 12/01/24 I am a: Patient What is your living situation today?: I have a steady place to live Within the past 12 months, did the food you bought not last and you didn't have the money to get more?: Never true Within the past 12 months, did you worry whether your food would run out before you got money to buy more?: Never true Do you have trouble paying for medicines?: No Do you have trouble getting transportation to medical appointments?: No Do you have trouble paying your heating and electricity bill?: No Do you have trouble taking care of your child, family member or friend?: No Do you have trouble with day-to-day activities such as bathing, preparing meals, shopping, managing finances, etc.?: No Are you currently unemployed and looking for a job?: No Are you interested in more education?: No Please select the resources that you would like help with: None Currently or been in a relationship where the following occur: No concerns reported THRIVE Score: 0 AUDIT C Alcohol Use Questionnaire (AUDIT-C) 1. How often do you have a drink containing alcohol?: Never 3. How often do you have six or more drinks on one occasion?: Never Total Score: 0 JESSICA-7 AMB Questionnaire JESSICA-7 Date JESSICA - 7 assessed: 12/01/24 Feeling nervous, anxious, or on edge: 0 = Not at all Not being able to stop or control worryin = Not at all Worrying too much about different things: 0 = Not at all Trouble relaxin = Not at all Being so restless that it is hard to sit still: 0 = Not at all Becoming easily annoyed or irritable: 0 = Not at all Feeling afraid as if something awful might happen: 0 = Not at all Total JESSICA-7 score (0-4 normal; 5-9 mild; 10-14 moderate; 15-21 severe): 0 Source: Developed by Cara Le Kurt Kroenke and colleagues, with an educational gelacio from [employer]. JESSICA-7 Assessment Billing JESSICA-7 Assessment Tool: JESSICA-7 Assessment 45313 Review of Systems Const Denies chills, Denies headache(s) and Denies weight loss ENT Denies headache(s) Card Denies chest pain, Denies syncope, Denies irregular heart rhythm and Denies dyspnea Resp Denies chest congestion, Denies cough and Denies dyspnea GI Denies abdominal pain, Denies change in stool character, Denies nausea and Denies vomiting Musc Denies deformity and Denies joint swelling Neuro Denies syncope and Denies headache(s) Physical exam (Primary Care) Vital Signs: Last Vital Signs Temp 97.3 F 12/01/24 13:10 Pulse 90 12/01/24 13:10 BP 134/80 12/01/24 13:10 Pulse Ox 99 12/01/24 13:10 Oxygen Delivery Method Room Air 12/01/24 13:10 BMI result Body Mass Index 19.5 Tobacco/Smoking Status: Tobacco use Status Tobacco use date assessed 12/01/24 12/01/24 13:14 Patient Tobacco Use Status Never used Tobacco 12/01/24 13:14 e-Cigarette/Vaping Use Never Used 12/01/24 13:14 PHQ-9: PHQ-9 Score PHQ-9: Total score 0 12/01/24 13:14 Depression Screening Interpretation: Negative Thrive Assessment: Date of Thrive Assessment Date Thrive assessed 12/01/24 12/01/24 13:14 Currently or been in a relationship where the following occur: No concerns reported Const General: cooperative, comfortable, no acute distress and alert Neck Neck: Yes no lymphadenopathy Thyroid: Thyroid normal Resp Effort & Inspection: normal respiratory effort Auscultation: clear to auscultation bilaterally Percussion: percussion normal Cardio Jugular venous distension: no JVD Palpation: normal PMI Rate: regular rate Rhythm: regular rhythm Heart sounds: S1 normal heart sound present and S2 normal heart sound present GI Inspection: Yes normal to inspection Palpation (GI): No hepatosplenomegaly present Skin General skin exam: no rashes or lesions noted Extrem General: Yes no clubbing, cyanosis or edema Coding Level of Care Code Est Pt Level 3 (53583) Diagnoses UTI (urinary tract infection) N39.0 Additional Codes JESSICA-7 Assessment Billing - JESSICA-7 Assessment Tool: JESSICA-7 Assessment 73865 ([id number]) PHQ-9 - 07644 - PHQ-9 Billing: Yes ([id number]) Assessment & Plan Assessment & Plan (1) UTI (urinary tract infection): Code(s): N39.0 - Urinary tract infection, site not specified Category: Medical Plan: rx sent Medications: New azithromycin take 500 mg today (day 1), then 250 mg for 4 days (days 2-5) PO 6 tabs 0RF
== END 2024-12-01 13:48 | disposition home or self-care (01) ==
PROVIDERS: PCP Internal Medicine; Visit Provider Internal Medicine
DX: N39.0 Urinary tract infection, site not specified (principal)

== ENCOUNTER 2025-01-13 14:33 | Outpatient (AMB) | payer BC, SELFPAY ==
--- NOTE | 2025-01-13 14:41 | AM.OFFWIN_ITS ---
Intake Vital Signs 01/13/25 15:05 Weight 110 lb BP 120/80 Blood Pressure Location Rt brachial Position Sitting Pulse 81 Pulse Source Pulse Oximeter Intake Visit Reasons: EP UTI? Intake Note: Patient here for pain, sensitivity, bladder pressure that started a couple of days ago. Patient Tobacco Use Status: Never used Tobacco Allergies amoxicillin [AMOXICILLIN] Allergy (Severe, Verified 01/13/25 15:04) Anaphylaxis clindamycin [CLINDAMYCIN] Allergy (Unknown, Verified 01/13/25 15:04) UNKNOWN erythromycin base [ERYTHROMYCIN BASE] Allergy (Unknown, Verified 01/13/25 15:04) UNKNOWN ibuprofen Adverse Reaction (Intermediate, Verified 01/13/25 15:04) pain nitrofurantoin Adverse Reaction (Intermediate, Verified 01/13/25 15:04) lightheaded, sick NSAIDS (Non-Steroidal Anti-Inflamma Adverse Reaction (Intermediate, Verified 01/13/25 15:04) nausea, GI pain Sulfa (Sulfonamide Antibiotics) Adverse Reaction (Intermediate, Verified 01/13/25 15:04) Nausea and Vomiting ciprofloxacin [Cipro] Adverse Reaction (Mild, Verified 01/13/25 15:04) Diarrhea Do you need a note to return to daycare/school/sports/work: No HPI HPI Comments History of Present Illness Details History of Present Illness - The patient is a 54-year-old female pr esenting with urinary issues, suspected to be a urinary tract infection (UTI). - She reports burning sensation at the u rethral opening and increased frequency and urgency of urination every two to three hours. - The patient reports necessity to push to empty the bladder completely, disrupts her sleep cycle, but denies experiencing fever, back pain, or lower abdominal pain. - The patient has a past history of urin efren tract infections and previous urinalysis showed blood in urine with no definitive culture results. - She has taken phenazopyridine to manag e urinary symptoms, aware it may affect urinalysis results. - The patient has allergies to amoxicill in and clindamycin and erythromycin. Physical Exam General: Cooperative, healthy appearing, comfortable, no acute distress and well developed Orientation: Patient oriented x3 Limitations: No limitations Head: Normal to inspection Ears: Hearing grossly normal bilaterally Nose: Normal External nose present Face and sinus: Normal facial exam Eyes: Appearance normal, both eyes and all related structures Neck: Normal visual inspection and Yes full ROM Respiratory: Normal respiratory effort and able to speak in complete sentences. Skin: No rashes or lesions noted Neuro: Patient oriented x3 Extremities: Normal to inspection [facility] Medical History Family history of pancreatic cancer Internal and external hemorrhoids without complication Intermittent palpitations Spasmodic torticollis Vertigo Migraine headache Surgical History Hx of colonoscopy History of esophagogastroduodenoscopy (EGD) History of endometrial ablation Family History Mother COPD (chronic obstructive pulmonary disease) Father No problems noted. Maternal Grandmother Pancreatic cancer, Onset Age: 57 Paternal Aunt Pancreatic cancer, Onset Age: 83 Father Pancreatic cancer, Onset Age: 57 Other Substance use disorder Social History Housing: House Alcohol intake: never Patient Tobacco Use Status: Never used Tobacco e-Cigarette/Vaping Use: Never Used Second Hand Smoke Exposure: No service: No Current occupational status: employed Cognitive needs: No Hearing needs: No Vision needs: No Review of Systems Const All systems reviewed & are unremarkable except as noted in HPI and below Physical Exam Vital Signs: Last Vital Signs Pulse 81 01/13/25 15:05 BP 120/80 01/13/25 15:05 Assessment & Plan Assessment & Plan (1) UTI (urinary tract infection): Code(s): N39.0 - Urinary tract infection, site not specified Qualifiers: Urinary tract infection type: acute cystitis Hematuria presence: with hematuria Qualified Code(s): N30.01 - Acute cystitis with hematuria Plan: UA neg for infection and + blood. The patient is diagnosed with a urinary tract infection UTI based on her symptoms and prescribed Cefuroxime due to her allergies to amoxicillin and clindamycin and its broad efficacy against UTI pathogens. She will take this antibiotic twice daily for five days with meals to mitigate stomach discomfort. Instructions include monitoring for increased symptoms such as fever, pain or hematuria, which would necessitate urgent follow-up or emergency care. A urine culture has been ordered for further analysis, but the initial management is based on symptomatic treatment given the nature of previous results. The patient is advised to finish the course of antibiotics and return if symptoms do not resolve after treatment. Patient was informed and verbally consented to the use of an ambient scribe for clinic note documentation during this visit. Orders: Orders Urine Culture Today N39.0 - Urinary tract infection, site not specified Medications: New cefuroxime axetil 500 mg PO Q12H 10 tabs 0RF Coding Level of Care Code Est Pt Level 3 (70692) Diagnoses Acute cystitis with hematuria N30.01 Urinary tract infection type: acute cystitis Hematuria presence: with hematuria
[2025-01-13 15:05] VITALS: BP 120/80; PULSE 81
== END 2025-01-13 15:22 | disposition home or self-care (01) ==
PROVIDERS: PCP Internal Medicine; Visit Provider Physician Assistant
DX: Z13.9 Encounter for screening, unspecified (principal); N30.01 Acute cystitis with hematuria

== ENCOUNTER 2025-01-13 14:33 | Outpatient (REF) | payer BC, SELFPAY | END 2025-01-13 14:34 | disposition home or self-care (01) | LOC: HO.LAB 14:33 | PROVIDERS: PCP Internal Medicine | DX: N30.01 Acute cystitis with hematuria (principal) | CPT/HCPCS: 81003 ==

== ENCOUNTER 2025-02-07 10:00 | Outpatient (AMB) | payer BC, SELFPAY ==
[2025-02-07 10:09] VITALS: BMI 19.5
--- NOTE | 2025-02-07 10:09 | MHC.OFFVIS ---
Vital Signs 02/07/25 10:09 Height 5 ft 3 in Weight 110 lb BMI 19.5 Intake Visit Reasons: BOTOX Intake Note: patient presents for botox injection. patient supplied Allergies amoxicillin [AMOXICILLIN] Allergy (Severe, Verified 02/07/25 10:14) Anaphylaxis clindamycin [CLINDAMYCIN] Allergy (Unknown, Verified 02/07/25 10:14) UNKNOWN erythromycin base [ERYTHROMYCIN BASE] Allergy (Unknown, Verified 02/07/25 10:14) UNKNOWN ibuprofen Adverse Reaction (Intermediate, Verified 02/07/25 10:14) pain nitrofurantoin Adverse Reaction (Intermediate, Verified 02/07/25 10:14) lightheaded, sick NSAIDS (Non-Steroidal Anti-Inflamma Adverse Reaction (Intermediate, Verified 02/07/25 10:14) nausea, GI pain Sulfa (Sulfonamide Antibiotics) Adverse Reaction (Intermediate, Verified 02/07/25 10:14) Nausea and Vomiting ubrogepant [From Ubrelvy] Adverse Reaction (Intermediate, Verified 02/07/25 10:34) Nausea and Vomiting ciprofloxacin [Cipro] Adverse Reaction (Mild, Verified 02/07/25 10:14) Diarrhea quilipta Adverse Reaction (Intermediate, Uncoded 02/07/25 10:34) nausea , dizziness Medication List - Last Reconciled 02/07/25 by Beena Bergman MD betamethasone dipropionate 0.05% 1 appl topical BID PRN yvcpdzybdk-tugkydhyqgcyb-jxyc 50-325-40 mg 1 tab PO Q4H PRN cefuroxime axetil 500 mg PO Q12H cyclobenzaprine 10 mg PO BEDTIME cyclosporine 0.05% (Restasis) 1 drp ophthalmic (eye) DAILY estradiol 1 patch transdermal 2XW fexofenadine (Children's Uma Allergy) 60 mg PO BID meclizine 25 mg PO DAILY PRN 30 days onabotulinumtoxinA (Botox) to be injected by physician to neck muscles q 90 days onabotulinumtoxinA (Botox) 200 units IM ONCE 3 months sumatriptan succinate (Imitrex) 50 mg PO ONCE PRN zolpidem 10 mg PO BEDTIME PRN HPI Comments Details: ? 54y/o female comes for treatment of spasmodic torticollis and migraines with botox . Since starting on Botox the patient has had more than 50% reduction in the number of migraine days . Prior to Botox Number of migraine days /month- 25-30 Intensity- 10/10 Lqwrlnewo-6-6/week ER- multiple visits Post Botox Numbe rof migraine days- 10-12 days/month Intensity- 5-8/10 ER - none Intensity - decreased use of medications- less Last injection- 3 ??? Most frequent reported adverse reactions following injection of botox for chronic migraine include neck pain (9%), headache(5%), eyelid ptosis(4%), migraine(4%), muscular weakness(4%), musculuskeletal stiffness(4%), bronchitis(3%), injection site pain (3%), musculoskeletal pain(3%), myalgia(3%), facial paresis(2%), HTN(2%) and muscle spasms(2%) were discussed in detail. ??? Botulinum toxin typeA 100units X 3 Lot no [id number] expiration February 2027 was diluted with 4 cc of normal saline . ??? Muscles injected- ??? Frontalis 4 sites ? M[employer] Blasting- 2 sites ??? Temporalis- 6 sites ? 5 units each ??? Trapezius - right 30 units ??? Left 30 units ??? left levator 50units units right levator 25 units right splenius 50 units ??? Total use- 300units ??? [facility] Medical History Family history of pancreatic cancer Internal and external hemorrhoids without complication Intermittent palpitations Spasmodic torticollis Vertigo Migraine headache Surgical History Hx of colonoscopy History of esophagogastroduodenoscopy (EGD) History of endometrial ablation Family History Mother COPD (chronic obstructive pulmonary disease) Father No problems noted. Maternal Grandmother Pancreatic cancer, Onset Age: 57 Paternal Aunt Pancreatic cancer, Onset Age: 83 Father Pancreatic cancer, Onset Age: 57 Other Substance use disorder Social History Housing: House Alcohol intake: never Patient Tobacco Use Status: Never used Tobacco e-Cigarette/Vaping Use: Never Used Second Hand Smoke Exposure: No service: No Current occupational status: employed Cognitive needs: No Hearing needs: No Vision needs: No Physical Exam Vital Signs: BMI result Body Mass Index 19.5 Const General: cooperative, healthy appearing and comfortable Nutritional Appearance: average body habitus Orientation/consciousness: patient oriented x3 Eyes Pupils: Equal, round and reactive pupils present Neck Other: antecollis Neuro General: patient oriented x3, gait normal, tone normal and moves all extremities Cranial nerves: Yes CN's II-XII intact bilaterally, Yes Facial sensation intact/muscles of mastication intact and Yes Equal, round and reactive pupils present Office Procedures Botulinum toxin Injection 85381 - Migraine Procedure code (CPT) selection complete Office Meds onabotulinumtoxinA 100 unit solution for injection Performing Provider: Beena Bergman MD Performing Location: [facility] [place] [facility] Administered by: Beena Bergman MD on 02/07/25 13:38 Dose Route Admin Location Dispensed Lot Number Expiration Date [facility] Produce Weigher 300 unit IM 300 units [id number] [employer] Comments: see HPI Assessment & Plan Assessment & Plan (1) Spasmodic torticollis: Code(s): G24.3 - Spasmodic torticollis Category: Medical (2) Chronic migraine without aura: Code(s): G43.709 - Chronic migraine without aura, not intractable, without status migrainosus Category: Medical Qualifiers: Intractability: intractable Status migrainosus presence: without status migrainosus Qualified Code(s): G43.719 - Chronic migraine without aura, intractable, without status migrainosus (3) Migraine with aura, intractable, without status migrainosus: Comment: she has more than 50% reduction in migraines since starting treatment with botox Code(s): G43.119 - Migraine with aura, intractable, without status migrainosus Category: Medical Plan Patient tolerated the procedure well she will call with any side effects ANti JESSICA and Ampiphysin antibody levels- normal Orders: Orders AMB Botulinum toxin Injection - Patient Supplied N/C Today G43.719 - Chronic migraine without aura, intractable, without status migrainosus Medications: New onabotulinumtoxinA 100 units IM ONCE 3 ea 0RF migraine G43.719 - Chronic migraine without aura, intractable, without status migrainosus Coding Level of Care Code Est Pt Level 1 (70728) Diagnoses Spasmodic torticollis G24.3 Intractable chronic migraine without aura and without status migrainosus G43.719 Intractability: intractable Status migrainosus presence: without status migrainosus Migraine with aura, intractable, without status migrainosus G43.119 CPT Codes Botox Injection - Botox 3: 52698 - Migraine ([id number])
== END 2025-02-07 10:52 | disposition home or self-care (01) ==
LOC: HO.HSMS 10:01
PROVIDERS: PCP Internal Medicine; Visit Provider Psychiatry & Neurology Neurology
DX: G43.719 Chronic migraine without aura, intractable, without status migrainosus (principal); G43.119 Migraine with aura, intractable, without status migrainosus; G24.3 Spasmodic torticollis
CPT/HCPCS: 64615

== ENCOUNTER → 2025-02-07 10:00 | Outpatient (BNVA) | payer BC, SELFPAY | PROVIDERS: PCP Internal Medicine; Visit Provider Psychiatry & Neurology Neurology | DX: G24.3 Spasmodic torticollis (principal); G43.E19 Chronic migraine with aura, intractable, without status migrainosus | CPT/HCPCS: 64615; 99211; J0585 ==

== ENCOUNTER 2025-02-10 13:28 | Outpatient (AMB) | payer BC, SELFPAY ==
--- NOTE | 2025-02-10 13:39 | A.OFFPC_ITS ---
Vital Signs 02/10/25 13:40 Height 5 ft 3 in Weight 107 lb 6 oz BMI 19.0 BP 136/80 Blood Pressure Location Lt brachial Position Sitting Pulse 81 Pulse Source Pulse Oximeter Pulse Oximetry (%) 99 Oxygen Delivery Method Room Air Intake Visit Reasons: Transfer Care from Dr. Ross Follow Up Administrative Medical Director Required: No Accompanied by: Self / Same As Patient Allergies amoxicillin [AMOXICILLIN] Allergy (Severe, Verified 02/10/25 14:15) Anaphylaxis clindamycin [CLINDAMYCIN] Allergy (Unknown, Verified 02/10/25 14:15) UNKNOWN erythromycin base [ERYTHROMYCIN BASE] Allergy (Unknown, Verified 02/10/25 14:15) UNKNOWN ibuprofen Adverse Reaction (Intermediate, Verified 02/10/25 14:15) pain nitrofurantoin Adverse Reaction (Intermediate, Verified 02/10/25 14:15) lightheaded, sick NSAIDS (Non-Steroidal Anti-Inflamma Adverse Reaction (Intermediate, Verified 02/10/25 14:15) nausea, GI pain Sulfa (Sulfonamide Antibiotics) Adverse Reaction (Intermediate, Verified 02/10/25 14:15) Nausea and Vomiting ubrogepant [From Ubrelvy] Adverse Reaction (Intermediate, Verified 02/10/25 14:15) Nausea and Vomiting ciprofloxacin [Cipro] Adverse Reaction (Mild, Verified 02/10/25 14:15) Diarrhea quilipta Adverse Reaction (Intermediate, Uncoded 02/10/25 14:15) nausea , dizziness Medication List - Last Reconciled 02/10/25 by Mark Loving MD betamethasone dipropionate 0.05% 1 appl topical BID PRN dblgvomsou-hkhganjuedtfg-pxnv 50-325-40 mg 1 tab PO Q4H PRN cyclobenzaprine 10 mg PO BEDTIME cyclosporine 0.05% (Restasis) 1 drp ophthalmic (eye) DAILY estradiol 1 patch transdermal 2XW fexofenadine (Children's Uma Allergy) 60 mg PO BID meclizine 25 mg PO DAILY PRN 30 days onabotulinumtoxinA (Botox) 200 units IM .Q 90 days sumatriptan succinate (Imitrex) 50 mg PO ONCE PRN zolpidem 10 mg PO BEDTIME PRN Tobacco use date assessed: 02/10/25 Dental Screening Dental Screen Date: 02/10/25 Did you have a dental visit in the last 12 months?: Yes Did you have a dental problem in the last 6 months where you did not have access to dental care?: No Was dental information given to patient?: Patient has dentist HPI Transfer Care from Dr. Ross Follow Up HPI Details Patient comes in today for her follow-up visit - is transferring over from Dr. Ross who retired from the practice last month Patient states that she has a history of chronic migraine headaches and neck pains that are currently maintained on Botox injections with neurology every 3 months States that she has been tried on several migraine headaches medications, including the newer ones like Ubrelvy and Qulipta States that she either could not tolerate the medications she has tried or they are ineffective for her migraines and the only medications that she has been able to tolerate so far are Fioricet and Sumatriptan although her quantity per prescription is limited by insurance restrictions 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 so she does not take Fioricet unless she has to States that she also goes to work very early in the morning at 6 AM to get her lab started in time for school opening and often times does not get back home until after 6 PM and this does have an impact as well on her daily headache and neck pain management She has also recently noticed the presence of some blood in her urine on routine urinalysis over the past few months She denies any acute urinary symptoms other than a sensation of incomplete voiding at times but she does have a family history of interstitial cystitis and has several family members, including her mother, suffering from it and she would like to get this checked out further She denies any chest pains, no increased shortness of breath No nausea/vomiting, no abdominal pain No change in bowel habits noted [facility] Medical History (Updated 02/12/25 @ 04:10 by Mark Loving MD) Insomnia Microscopic hematuria Cervical dystonia Family history of pancreatic cancer Internal and external hemorrhoids without complication Intermittent palpitations Spasmodic torticollis Vertigo Migraine headache Surgical History Hx of colonoscopy History of esophagogastroduodenoscopy (EGD) History of endometrial ablation Family History Mother COPD (chronic obstructive pulmonary disease) Father No problems noted. Maternal Grandmother Pancreatic cancer, Onset Age: 57 Paternal Aunt Pancreatic cancer, Onset Age: 83 Father Pancreatic cancer, Onset Age: 57 Other Substance use disorder Social History Housing: House Alcohol intake: never Patient Tobacco Use Status: Never used Tobacco e-Cigarette/Vaping Use: Never Used Second Hand Smoke Exposure: No service: No Current occupational status: employed Cognitive needs: No Hearing needs: No Vision needs: No Questionnaire PHQ-9 Over the last 2 weeks, how often have you been bothered by any of the following problems? 1. Little interest or pleasure in doing things: not at all 2. Feeling down, depressed, or hopeless: not at all 3. Trouble falling or staying asleep, or sleeping too much: not at all 4. Feeling tired or having little energy: not at all 5. Poor appetite or overeating: not at all 6. Feeling bad about yourself - or that you are a failure or have let yourself or your family down: not at all 7. Trouble concentrating on things, such as reading the newspaper or watching television: not at all 8. Moving or speaking so slowly that other people could have noticed. Or the opposite - being so fidgety or restless that you have been moving around a lot more than usual: not at all 9. Thoughts that you would be better off or of hurting yourself in some way: not at all Total score: 0 Depression Screening Interpretation: Negative Depression Screening Done: Yes 19682 - PHQ-9 Billing: Yes Source: Developed by Drs. Nahun Jett, Cara Marr, Moreno Reich and colleagues, with an educational gelacio from [email or web address]. Thrive Questionnaire Date Thrive assessed: 02/10/25 I am a: Patient What is your living situation today?: I have a steady place to live Within the past 12 months, did the food you bought not last and you didn't have the money to get more?: Never true Within the past 12 months, did you worry whether your food would run out before you got money to buy more?: Never true Do you have trouble paying for medicines?: No Do you have trouble getting transportation to medical appointments?: No Do you have trouble paying your heating and electricity bill?: No Do you have trouble taking care of your child, family member or friend?: No Do you have trouble with day-to-day activities such as bathing, preparing meals, shopping, managing finances, etc.?: No Are you currently unemployed and looking for a job?: No Are you interested in more education?: No Please select the resources that you would like help with: None Currently or been in a relationship where the following occur: No concerns reported THRIVE Score: 0 AUDIT C Alcohol Use Questionnaire (AUDIT-C) 1. How often do you have a drink containing alcohol?: Never 3. How often do you have six or more drinks on one occasion?: Never Total Score: 0 Score Reviewed/Action Taken: Yes JESSICA-7 AMB Questionnaire JESSICA-7 Date JESSICA - 7 assessed: 02/10/25 Feeling nervous, anxious, or on edge: 0 = Not at all Not being able to stop or control worryin = Not at all Worrying too much about different things: 0 = Not at all Trouble relaxin = Not at all Being so restless that it is hard to sit still: 0 = Not at all Becoming easily annoyed or irritable: 0 = Not at all Feeling afraid as if something awful might happen: 0 = Not at all Total JESSICA-7 score (0-4 normal; 5-9 mild; 10-14 moderate; 15-21 severe): 0 Source: Developed by Drs. Nahun Jett, Cara Marr, Moreno Reich and colleagues, with an educational gelacio from [email or web address]. Review of Systems Const Denies chills, Denies fatigue, Denies fever(s) and Reports headache(s) (recurrent) ENT Denies dysphagia, Denies dizziness, Denies otalgia, Reports headache(s) (recurrent), Reports neck pain (frequent/recurrent), Denies odynophagia and Denies sore throat Card Denies chest pain, Denies palpitations and Denies dyspnea Resp Denies chest congestion, Denies cough and Denies dyspnea GI Denies abdominal pain, Denies constipation, Denies dysphagia, Denies heartburn, Denies diarrhea, Denies nausea, Denies odynophagia and Denies vomiting Denies difficulty voiding (but (+) sensation of incomplete voiding at times), Denies nocturia, Denies dysuria and Denies urinary urgency Musc Denies back pain and Reports neck pain (frequent/recurrent) Skin/Breast Denies rash Neuro Denies dizziness and Reports headache(s) (recurrent) Endo Denies fatigue and Denies palpitations Physical exam (Primary Care) Vital Signs: Last Vital Signs Pulse 81 02/10/25 13:40 BP 136/80 02/10/25 13:40 Pulse Ox 99 02/10/25 13:40 Oxygen Delivery Method Room Air 02/10/25 13:40 BMI result Body Mass Index 19.0 Tobacco/Smoking Status: Tobacco use Status Tobacco use date assessed 02/10/25 02/10/25 13:46 Patient Tobacco Use Status Never used Tobacco 02/10/25 13:46 e-Cigarette/Vaping Use Never Used 02/10/25 13:46 PHQ-9: PHQ-9 Score PHQ-9: Total score 0 02/10/25 14:23 Depression Screening Interpretation: Negative Thrive Assessment: Date of Thrive Assessment Date Thrive assessed 02/10/25 02/10/25 13:46 Currently or been in a relationship where the following occur: No concerns reported Const General: no acute distress and alert HENMT Ears: TM's normal bilaterally and EAC's normal Throat: Yes posterior oropharynx normal and Yes tonsils normal (no TP congestion) Neck Neck: No lymphadenopathy and Yes tender Thyroid: Thyroid normal Resp Auscultation: clear to auscultation bilaterally, no rales and no wheezes Cardio Rate: regular rate Rhythm: regular rhythm Heart sounds: no murmurs GI Palpation (GI): Soft to palpation and nontender Auscultation: normal bowel sounds General: Yes no CVA tenderness Back/Spine/Pelvis Back: no CVA tenderness Thoracic/Lumbar Spine: No lumbar spinal tenderness Skin Rashes: no rashes Extrem General: Yes no clubbing, cyanosis or edema Coding Level of Care Code Est Pt Level 4 (03479) Diagnoses Migraine with aura, intractable, without status migrainosus G43.119 Cervical dystonia G24.3 Microscopic hematuria R31.29 Insomnia, unspecified type G47.00 Insomnia type: unspecified Additional Codes PHQ-9 - 36216 - PHQ-9 Billing: Yes ([id number]) Assessment & Plan Assessment & Plan (1) Migraine with aura, intractable, without status migrainosus: Comment: she has more than 50% reduction in migraines since starting treatment with botox Code(s): G43.119 - Migraine with aura, intractable, without status migrainosus Category: Medical Plan: Continue Botox injections over her scalp muscles and trapezius muscles on both sides - total of 200 units every 90 days Continue Fioricet 50-325-40 mg every 4 to 6 hours PRN and/or Sumatriptan 50 mg PRN as instructed Patient states that she has been tried on several migraine headaches medications, including the newer ones like Ubrelvy and Qulipta, in the past but she either could not tolerate the medications or they are ineffective (for her migraines) and that the only medications that she has been able to tolerate so far are Fioricet and Sumatriptan although her Rx quantity per prescription is limited by insurance restrictions States that she also takes her Fioricet only as needed as 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 and she cannot afford to experience any sedation or compromised alertness while she is at work Follow up with neurology as scheduled (2) Cervical dystonia: Comment: spasmodic torticollis Code(s): G24.3 - Spasmodic torticollis Category: Medical Plan: Continue Botox injections over her scalp muscles and trapezius muscles on both sides - total of 200 units every 90 day Continue Cyclonenzaprine 10 mg Q HS PRN (3) Microscopic hematuria: Code(s): R31.29 - Other microscopic hematuria Category: Medical Plan: Patient denies any acute urinary symptoms except for occasional sensation of incomplete voiding Per request, will refer her to urology for further evaluation and management (4) Insomnia: Code(s): G47.00 - Insomnia, unspecified Category: Medical Qualifiers: Insomnia type: unspecified Qualified Code(s): G47.00 - Insomnia, unspecified Plan: Sleep hygiene reinforced Continue Zolpidem 10 mg Q HS PRN Plan To return in May 2025 for her annual physical examination Orders: Orders Complete Blood Count Auto Diff 05/19/25 D64.9 - Anemia, unspecified, Z00.00 - Encounter for general adult medical examination without abnormal findings Lipid Panel 05/19/25 E78.00 - Pure hypercholesterolemia, unspecified, Z00.00 - Encounter for general adult medical examination without abnormal findings UA CC w/rflx Micro + Cult 05/19/25 R30.0 - Dysuria, Z00.00 - Encounter for general adult medical examination without abnormal findings Vitamin D 25-OH Total 05/19/25 E55.9 - Vitamin D deficiency, unspecified, Z00.00 - Encounter for general adult medical examination without abnormal findings Comprehensive [place]. Panel Fast 05/19/25 E78.00 - Pure hypercholesterolemia, unspecified, Z00.00 - Encounter for general adult medical examination without abnormal findings TSH reflex Free T4 05/19/25 E78.00 - Pure hypercholesterolemia, unspecified, Z00.00 - Encounter for general adult medical examination without abnormal findings Referrals Urology Referral R31.21 - Asymptomatic microscopic hematuria Medications: Refilled ibuagkmdzj-ofupimdnokidi-ebnc 50-325-40 mg 1 tab PO Q4H PRN 60 tabs 0RF pain
[2025-02-10 13:40] VITALS: BP 136/80; PULSE 81; O2SAT 99; BMI 19.0
== END 2025-02-10 14:39 | disposition home or self-care (01) ==
LOC: HO.HMCH 13:29
PROVIDERS: PCP Internal Medicine; Visit Provider Internal Medicine
DX: G43.119 Migraine with aura, intractable, without status migrainosus (principal); G24.3 Spasmodic torticollis; R31.29 Other microscopic hematuria; G47.00 Insomnia, unspecified

== ENCOUNTER → 2025-02-10 13:28 | Outpatient (BNVA) | payer BC, SELFPAY | PROVIDERS: PCP Internal Medicine; Visit Provider Internal Medicine | DX: G43.119 Migraine with aura, intractable, without status migrainosus (principal); G24.3 Spasmodic torticollis; R31.29 Other microscopic hematuria; G47.00 Insomnia, unspecified; Z79.899 Other long term (current) drug therapy | CPT/HCPCS: 96127 ==

== ENCOUNTER 2025-04-24 13:37 | Outpatient (AMB) | payer BC, SELFPAY ==
--- NOTE | 2025-04-24 13:54 | MHC.OFFVIS ---
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: No Accompanied by: Self / Same As Patient Allergies amoxicillin (AMOXICILLIN) Allergy (Severe, Verified 04/24/25 14:42) Anaphylaxis clindamycin (CLINDAMYCIN) Allergy (Unknown, Verified 04/24/25 14:42) UNKNOWN erythromycin base (ERYTHROMYCIN BASE) Allergy (Unknown, Verified 04/24/25 14:42) UNKNOWN ibuprofen Adverse Reaction (Intermediate, Verified 04/24/25 14:42) pain nitrofurantoin Adverse Reaction (Intermediate, Verified 04/24/25 14:42) lightheaded, sick NSAIDS (Non-Steroidal Anti-Inflamma Adverse Reaction (Intermediate, Verified 04/24/25 14:42) nausea, GI pain Sulfa (Sulfonamide Antibiotics) Adverse Reaction (Intermediate, Verified 04/24/25 14:42) Nausea and Vomiting ubrogepant (From Ubrelvy) Adverse Reaction (Intermediate, Verified 04/24/25 14:42) Nausea and Vomiting ciprofloxacin (Cipro) Adverse Reaction (Mild, Verified 04/24/25 14:42) Diarrhea quilipta Adverse Reaction (Intermediate, Uncoded 04/24/25 14:42) nausea , dizziness Medication List - Last Reviewed 04/24/25 by EAMON Tucker betamethasone dipropionate 0.05% 1 appl topical BID PRN [id number]-usmhplrccsxol-nfpm 50-325-40 mg 1 tab PO Q4H PRN 7 days cyclobenzaprine 10 mg PO BEDTIME cyclosporine 0.05% (Restasis) 1 drp ophthalmic (eye) DAILY estradiol 1 patch transdermal 2XW fexofenadine (Children's Uma Allergy) 60 mg PO BID meclizine 25 mg PO DAILY PRN 30 days onabotulinumtoxinA (Botox) 200 units IM .Q 90 days sumatriptan succinate (Imitrex) 50 mg PO ONCE PRN zolpidem 10 mg PO BEDTIME HPI Comments Details: Lorraine is a 54 year old female patient of Dr. Loving. She has a past medical history of microscopic hematuria, cervical dystonia, family history of pancreatic cancer, hemorrhoids, intermittent palpitations, spasmodic torticollis, vertigo, and headaches. She presents to the office today as a new patient for microscopic hematuria. She reports having seeked urgent care services late last year as she had been experiencing UTI like symptoms. She reports having completed antibiotic therapy as prescribed. She discusses having followed up with her PCP for her annual visit at which time she was noted to have microscopic hematuria and recommendations were made for urology referral for further assessment evaluation. In office urinalysis results reviewed with the patient today 1+ microscopic hematuria. She denies any previous nicotine dependence and or known workplace chemical exposure. We did discussed at length potential causes of microscopic hematuria as well as further workup in risks and benefits of these interventions. She denies urinary urgency, urinary frequency, incontinence, nocturia, gross/visible hematuria, dysuria, foul smelling urine, changes to urinary stream, flank pain, fever, and or chills. She is happy with her current voiding parameters. 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 I discussed reasons for blood in the urine may include but are not limited to kidney stones, cancer in the urinary tract, kidney stone disease or inflammatory conditions of the urinary tract. I have discussed workup to include cystoscopy evaluation. She does discuss history of familial microscopic hematuria as her mother and aunt have microscopic hematuria as well as interstitial cystitis. All questions were answered. She otherwise offers no other issues or concerns at this time. [facility] Medical History Insomnia Microscopic hematuria Cervical dystonia Family history of pancreatic cancer Internal and external hemorrhoids without complication Intermittent palpitations Spasmodic torticollis Vertigo Migraine headache Surgical History Hx of colonoscopy History of esophagogastroduodenoscopy (EGD) History of endometrial ablation Family History Mother COPD (chronic obstructive pulmonary disease) Father No problems noted. Maternal Grandmother Pancreatic cancer, Onset Age: 57 Paternal Aunt Pancreatic cancer, Onset Age: 83 Father Pancreatic cancer, Onset Age: 57 Other Substance use disorder Social History Housing: House Alcohol intake: never Patient Tobacco Use Status: Never used Tobacco e-Cigarette/Vaping Use: Never Used Second Hand Smoke Exposure: No service: No Current occupational status: employed Cognitive needs: No Hearing needs: No Vision needs: No Review of Systems Const All systems reviewed & are unremarkable except as noted in HPI and below Physical Exam Const General: cooperative, healthy appearing, comfortable, no acute distress, well developed, alert and awake Orientation/consciousness: patient oriented x3 Limitations: no limitations HEENT Head: Yes normal to inspection, Yes normocephalic and Yes atraumatic Ears: hearing grossly normal bilaterally Eyes General: appearance normal, both eyes and all related structures Neck Neck: Yes normal visual inspection and Yes trachea midline Chest Chest palpation & inspection: normal inspection of the chest Resp Effort & Inspection: normal respiratory effort and able to speak in complete sentences Cardio Rate: regular rate GI Inspection: Yes normal to inspection General: Yes no CVA tenderness Back/Spine/Pelvis Back: no CVA tenderness Skin General skin exam: no rashes or lesions noted Neuro General: patient oriented x3 Extrem General: Yes normal to inspection Psych Appearance: grossly normal and well kempt Mental Status: mental status grossly normal Speech and movement: Normal speech and movement present and Clear speech present Affect: normal affect Attitude: cooperative Thought process: Normal thought process present Thought content: Normal thought content present Insight: Fair insight present (Psych) Judgement: Fair judgement present (Psych) Results AMB Urinalysis, Automated UA Leukoctes 0 Shaista/uL Last Edit by Mina Marin [facility] on 04/24/25 15:22 UA Nitrite Last Edit by Mina Marin [facility] on 04/24/25 15:22 UA Urobilinogen 0.2 mg/dL Last Edit by Mina Marin [facility] on 04/24/25 15:22 UA Protein 0 mg/dL Last Edit by Mina Marin [facility] on 04/24/25 15:22 UA pH 6.5 Last Edit by Mina Marin [facility] on 04/24/25 15:22 UA Blood 25 Matthieu/uL Last Edit by Mina Marin [facility] on 04/24/25 15:22 UA Specific Bailey 1.005 Last Edit by Mina Marin [facility] on 04/24/25 15:22 UA Ketone Last Edit by Mina Marin [facility] on 04/24/25 15:22 UA Bilirubin 0 mg/dL Last Edit by EAMON Tucker on 04/24/25 15:22 UA Glucose 0 mg/dL Last Edit by EAMON Tucker on 04/24/25 15:22 Results Reviewed Results Reviewed: Laboratory Last Values Urine pH (Auto) 6.5 04/24/25 15:20 Specific Bailey (Auto) 1.005 04/24/25 15:20 Urine Protein (Auto) 0 mg/dL 04/24/25 15:20 Glucose (UA)(Auto) 0 mg/dL 04/24/25 15:20 Urine Blood (Auto) 25 Matthieu/uL 04/24/25 15:20 Urine Bilirubin (Auto) 0 mg/dL 04/24/25 15:20 Urine Urobilinogen (Auto) 0.2 mg/dL 04/24/25 15:20 Leukocyte Esterase (Auto) 0 Shaista/uL 04/24/25 15:20 Assessment & Plan Assessment & Plan (1) Microscopic hematuria: Code(s): R31.29 - Other microscopic hematuria Category: Medical (2) Recurrent urinary tract infection: Code(s): N39.0 - Urinary tract infection, site not specified Category: Medical Plan In office urinalysis results reviewed with the patient today; as noted above; will send for urine cytology. We did discussed potential causes of microscopic hematuria as well as further interventions and risks and benefits of these interventions. We discussed healthy bathroom behaviors. Will obtain retroperitoneal ultrasound for further assessment evaluation. We did discuss potential near future cystoscopy. She currently denies any bothersome urinary issues. She denies any UTI like symptoms. Follow-up in 3 months with imaging to be completed prior; or sooner with any issues, concerns, and or questions. Orders: Orders Urine Cytology Today R31.29 - Other microscopic hematuria US retroperitoneal comp Today N39.0 - Urinary tract infection, site not specified, R31.29 - Other microscopic hematuria AMB Urinalysis Automated Today Z13.9 - Encounter for screening, unspecified Patient Instructions: The patient had an opportunity to ask questions regarding the treatment plan. All questions were answered. Physical exam, labs, and imaging were discussed and reviewed in detail. As well as risks, benefits, and discussion of treatment choices. No major barriers to understanding were identified. The patient expressed understanding and agreement with the above treatment plan. The patient was made aware they should contact our office by phone for worsening of their current condition, the appearance of new symptoms, or with any questions or concerns. Compliance is encouraged with any medications and follow up testing that is ordered. It is a privilege to be allowed the opportunity to participate in? your urological care.? Again, if you have any questions or concerns If you have any questions or concerns please do not hesitate to contact me. The office is [phone]. This note is constructed using voice recognition software. While every effort has been made to ensure accuracy blankbook stitching machine operator errors may have been included. Yours sincerely, JOSE ANTONIO Schneider Coding Level of Care Code New Pt Level 3 (31283) Diagnoses Microscopic hematuria R31.29 Recurrent urinary tract infection N39.0
--- OUTSIDE RECORDS SUMMARY | 2025-04-24 14:06 | XMS_ITS | Patient Health Record ---
Author Organization [facility] Address [address] [place] [id number] Care Team Providers Care Strategic Sourcing Specialist Name Role Phone Danie Ross MD Primary Care Provider Nahun Mirza [phone] Reason For Referral No Information Plan Of Treatment No Information Insurance Providers Payer Name Payer Address Payer Phone Subscriber Number Group Number Insured Name Patient Relationship to Insured Coverage Start Date Coverage End Date [facility] [address] [place] [address] [phone] [id number] QUINONES Self - patient is the insured
== END 2025-04-24 14:50 | disposition home or self-care (01) ==
LOC: HO.HUSH 13:38
PROVIDERS: PCP Internal Medicine; Visit Provider Nurse Practitioner Family
DX: R31.29 Other microscopic hematuria (principal); N39.0 Urinary tract infection, site not specified
CPT/HCPCS: 99203

== ENCOUNTER 2025-04-24 13:37 | Outpatient (REF) | payer BC, SELFPAY | END 2025-04-24 13:38 | disposition home or self-care (01) | LOC: HO.LNP 13:37 | PROVIDERS: PCP Internal Medicine; Visit Provider Nurse Practitioner Family | DX: N39.0 Urinary tract infection, site not specified (principal); R31.29 Other microscopic hematuria; Z13.9 Encounter for screening, unspecified | CPT/HCPCS: 81003; 88112 ==

== ENCOUNTER 2025-05-08 07:42 | Outpatient (REF) | payer BC, SELFPAY ==
--- OUTSIDE RECORDS SUMMARY | 2025-05-08 07:44 | XMS_ITS | Patient Health Record ---
Author Organization [facility] Address [address] [place] [id number] Care Team Providers Care Business Technology Analyst Name Role Phone Danie Ross MD Primary Care Provider Nahun Mirza [phone] Reason For Referral No Information Plan Of Treatment No Information Insurance Providers Payer Name Payer Address Payer Phone Subscriber Number Group Number Insured Name Patient Relationship to Insured Coverage Start Date Coverage End Date [facility] [address] [place] [address] [id number] [id number] QUINONES Self - patient is the insured
[2025-05-08 11:10] LABS: MANUAL DIFF FLAG NO
[2025-05-08 11:27] LABS: Hematocrit 42.8 % (37.0-47.0); Hemoglobin 14.2 g/dl (12.0-16.0); Imm Gran Abs Auto 0.01 X10*3/uL (0.00-0.03); Imm Gran Pct Auto 0.2 % (0.0-0.4); Lymphocytes Absolute Auto 2.4 X10*3/uL (1.2-4.9); Mean Corpuscular HGB Conc 33.2 g/dl (31.0-35.0); Mean Corpuscular Hemoglobin 30.0 pg (27.0-33.0); Mean Corpuscular Volume 90.3 fL (80.0-98.0); NRBC Abs Auto 0.000 X10*3/uL (0.0-0.012); NRBC Pct Auto 0.0 /100WBC (0.0-0.2); Platelet Count 223 X10*3/uL (160-400); Red Blood Count 4.74 X10*6/uL (4.20-5.50); White Blood Count 5.9 X10*3/uL (4.8-10.8)
[2025-05-08 11:58] LABS: Alanine Aminotransferase 25 U/L (0-31); Albumin Level 4.5 g/dL (3.5-5.0); Alkaline Phosphatase 115 U/L (39-117); Anion Gap 12 (12-20); Aspartate Amino Transferase 35 U/L (5-31); Blood Urea Nitrogen 12 mg/dL (9-16); Calcium 9.2 mg/dL (8.4-10.2); Carbon Dioxide 28 mmol/L (22-29); Chloride 105 mmol/L (96-108); Cholesterol 216 mg/dL (<200); Estimated Glomerular Filt Rate > 60; HDL Cholesterol 45 mg/dL (>40); Potassium 3.9 mmol/L (3.3-5.1); Sodium 141 mmol/L (135-145); Total Protein 7.5 g/dL (6.5-8.0); Triglycerides 82 mg/dL (<150)
== END 2025-05-08 07:43 | disposition home or self-care (01) ==
LOC: HO.WFDLDS 07:42
PROVIDERS: Visit Provider Internal Medicine
DX: Z00.00 Encounter for general adult medical examination without abnormal findings (principal); D64.9 Anemia, unspecified; E78.00 Pure hypercholesterolemia, unspecified; E55.9 Vitamin D deficiency, unspecified
CPT/HCPCS: 36415; 80053; 80061; 82306; 84443; 85025

== ENCOUNTER 2025-05-09 13:08 | Outpatient (AMB) | payer BC, SELFPAY ==
[2025-05-09 13:11] VITALS: BP 132/80; PULSE 80; O2SAT 97; BMI 19.1
--- NOTE | 2025-05-09 13:11 | A.OFFVIS_ITS ---
Vital Signs 05/09/25 13:11 Height 5 ft 3 in Weight 108 lb BMI 19.1 BP 132/80 Blood Pressure Location Rt brachial Pulse 80 Pulse Source Pulse Oximeter Pulse Oximetry (%) 97 Oxygen Delivery Method Room Air Intake Visit Reasons: Botox Concrete Handler Required: No Accompanied by: Self / Same As Patient Allergies amoxicillin (AMOXICILLIN) Allergy (Severe, Verified 05/09/25 13:24) Anaphylaxis clindamycin (CLINDAMYCIN) Allergy (Unknown, Verified 05/09/25 13:24) UNKNOWN erythromycin base (ERYTHROMYCIN BASE) Allergy (Unknown, Verified 05/09/25 13:24) UNKNOWN ibuprofen Adverse Reaction (Intermediate, Verified 05/09/25 13:24) pain nitrofurantoin Adverse Reaction (Intermediate, Verified 05/09/25 13:24) lightheaded, sick NSAIDS (Non-Steroidal Anti-Inflamma Adverse Reaction (Intermediate, Verified 05/09/25 13:24) nausea, GI pain Sulfa (Sulfonamide Antibiotics) Adverse Reaction (Intermediate, Verified 05/09/25 13:24) Nausea and Vomiting ubrogepant (From Ubrelvy) Adverse Reaction (Intermediate, Verified 05/09/25 13:24) Nausea and Vomiting ciprofloxacin (Cipro) Adverse Reaction (Mild, Verified 05/09/25 13:24) Diarrhea quilipta Adverse Reaction (Intermediate, Uncoded 04/24/25 14:42) nausea , dizziness Medication List - Last Reconciled 05/09/25 by Beena Bergman MD atogepant (Qulipta) 30 mg PO DAILY betamethasone dipropionate 0.05% 1 appl topical BID PRN whvqatjmvk-fwrvvuycntblg-zfwo 50-325-40 mg 1 tab PO Q4H PRN 7 days cyclobenzaprine 10 mg PO BEDTIME cyclosporine 0.05% (Restasis) 1 drp ophthalmic (eye) DAILY estradiol 1 patch transdermal 2XW fexofenadine (Children's Uma Allergy) 60 mg PO BID meclizine 25 mg PO DAILY PRN 30 days onabotulinumtoxinA (Botox) 200 units IM .Q 90 days sumatriptan succinate (Imitrex) 50 mg PO ONCE PRN zolpidem 10 mg PO BEDTIME HPI Comments Details: ? 54y/o female comes for treatment of spasmodic torticollis and migraines with botox . Since starting on Botox the patient has had more than 50% reduction in the number of migraine days . Prior to Botox Number of migraine days /month- 25-30 Intensity- 10/10 Hmgzkuqit-5-7/week ER- multiple visits Post Botox Numbe rof migraine days- 10-12 days/month Intensity- 5-8/10 ER - none Intensity - decreased use of medications- less Last injection- 3 ??? Most frequent reported adverse reactions following injection of botox for chronic migraine include neck pain (9%), headache(5%), eyelid ptosis(4%), migraine(4%), muscular weakness(4%), musculuskeletal stiffness(4%), bronchitis(3%), injection site pain (3%), musculoskeletal pain(3%), myalgia(3%), facial paresis(2%), HTN(2%) and muscle spasms(2%) were discussed in detail. ??? Botulinum toxin typeA 100units X 3 Lot no [id number] expiration Jul 2027 was diluted with 4 cc of normal saline . v ??? Muscles injected- ??? Frontalis 4 sites ? Bindery Machine Setter/Set Up Operator- 2 sites ??? Temporalis- 6 sites ? 5 units each ??? Trapezius - right 30 units ??? Left 30 units ??? left levator 50units units right levator 25 units right splenius 50 units ??? Total use- 300units ??? PFSH Medical History Insomnia Microscopic hematuria Cervical dystonia Family history of pancreatic cancer Internal and external hemorrhoids without complication Intermittent palpitations Spasmodic torticollis Vertigo Migraine headache Surgical History Hx of colonoscopy History of esophagogastroduodenoscopy (EGD) History of endometrial ablation Family History Mother COPD (chronic obstructive pulmonary disease) Father No problems noted. Maternal Grandmother Pancreatic cancer, Onset Age: 57 Paternal Aunt Pancreatic cancer, Onset Age: 83 Father Pancreatic cancer, Onset Age: 57 Other Substance use disorder Social History Housing: House Alcohol intake: never Patient Tobacco Use Status: Never used Tobacco e-Cigarette/Vaping Use: Never Used Second Hand Smoke Exposure: No service: No Current occupational status: employed Cognitive needs: No Hearing needs: No Vision needs: No Physical Exam Vital Signs: Last Vital Signs Pulse 80 05/09/25 13:11 BP 132/80 05/09/25 13:11 Pulse Ox 97 05/09/25 13:11 Oxygen Delivery Method Room Air 05/09/25 13:11 BMI result Body Mass Index 19.1 Const General: cooperative, healthy appearing and comfortable Nutritional Appearance: average body habitus Orientation/consciousness: patient oriented x3 Eyes Pupils: Equal, round and reactive pupils present Neck Other: antecollis Neuro General: patient oriented x3, gait normal, tone normal and moves all extremities Cranial nerves: Yes CN's II-XII intact bilaterally, Yes Facial sensation intact/muscles of mastication intact and Yes Equal, round and reactive pupils present Office Procedures Botulinum toxin Injection 36153 - Dystonia Procedure code (CPT) selection complete Office Meds onabotulinumtoxinA 100 unit solution for injection Performing Provider: Beena Bergman MD Performing Location: [facility] Administered by: Beena Bergman MD on 05/09/25 14:05 Dose Route Admin Location Dispensed Lot Number Expiration Date [facility] Storm Window Installer 300 unit IM 300 units [id number] [employer]ER[employer] /BOTOX Total Dispensed Waste 300 units 0 % Comments: see hpi Assessment & Plan Assessment & Plan (1) Spasmodic torticollis: Code(s): G24.3 - Spasmodic torticollis Category: Medical (2) Chronic migraine without aura: Code(s): G43.709 - Chronic migraine without aura, not intractable, without status migrainosus Category: Medical Qualifiers: Status migrainosus presence: without status migrainosus Intractability: intractable Qualified Code(s): G43.719 - Chronic migraine without aura, intractable, without status migrainosus (3) Migraine with aura, intractable, without status migrainosus: Comment: she has more than 50% reduction in migraines since starting treatment with botox Code(s): G43.119 - Migraine with aura, intractable, without status migrainosus Category: Medical Plan Patient tolerated the procedure well she will call with any side effects ANti JESSICA and Ampiphysin antibody levels- normal Orders: Orders AMB Botulinum toxin Injection - Patient Supplied N/C Today G24.3 - Spasmodic torticollis Medications: New atogepant (Qulipta) 30 mg PO DAILY 30 tabs 0RF Coding Level of Care Code Est Pt Level 1 (58055) Diagnoses Spasmodic torticollis G24.3 Intractable chronic migraine without aura and without status migrainosus G43.719 Status migrainosus presence: without status migrainosus Intractability: intractable Migraine with aura, intractable, without status migrainosus G43.119 CPT Codes Botox Injection - Botox 4: 11059 - Dystonia ([id number])
== END 2025-05-09 14:06 | disposition home or self-care (01) ==
LOC: HO.HSMS 13:09
PROVIDERS: PCP Internal Medicine; Visit Provider Psychiatry & Neurology Neurology
DX: G24.3 Spasmodic torticollis (principal); G43.719 Chronic migraine without aura, intractable, without status migrainosus; G43.119 Migraine with aura, intractable, without status migrainosus
CPT/HCPCS: 64616

== ENCOUNTER → 2025-05-09 13:08 | Outpatient (BNVA) | payer BC, SELFPAY | PROVIDERS: PCP Internal Medicine; Visit Provider Psychiatry & Neurology Neurology | DX: G24.3 Spasmodic torticollis (principal); G43.719 Chronic migraine without aura, intractable, without status migrainosus | CPT/HCPCS: 64616; 99211; J0585 ==

== ENCOUNTER 2025-05-16 09:54 | Outpatient (REF) | payer BC, SELFPAY ==
--- OUTSIDE RECORDS SUMMARY | 2025-05-16 10:31 | XMS_ITS | Patient Health Record ---
Author Organization [facility] Address [address] [place] [id number] Care Team Providers Care Sweatband Cutting 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 Name Role Phone Danie Ross MD Primary Care Provider Nahun Mirza [phone] Reason For Referral No Information Plan Of Treatment No Information Insurance Providers Payer Name Payer Address Payer Phone Subscriber Number Group Number Insured Name Patient Relationship to Insured Coverage Start Date Coverage End Date [facility] [address] [place] [address] [id number] [id number] QUINONES Self - patient is the insured
== END 2025-05-16 09:55 | disposition home or self-care (01) ==
LOC: HO.MAMMO 09:54
PROVIDERS: PCP Internal Medicine; Visit Provider Internal Medicine
DX: Z12.31 Encounter for screening mammogram for malignant neoplasm of breast (principal)
CPT/HCPCS: 77063; 77067

== ENCOUNTER → 2025-05-16 10:15 | Outpatient (BNV) | payer BC, SELFPAY | PROVIDERS: PCP Internal Medicine; Visit Provider Internal Medicine | DX: Z12.31 Encounter for screening mammogram for malignant neoplasm of breast (principal) | CPT/HCPCS: 77063; 77067 ==

== ENCOUNTER 2025-05-17 09:35 | Outpatient (AMB) | payer BC, SELFPAY ==
[2025-05-17 09:41] VITALS: BP 140/70; PULSE 88; RESP 18; TEMP 36.2; O2SAT 97; BMI 18.8
--- NOTE | 2025-05-17 09:41 | A.OFFPC_ITS ---
Vital Signs 05/17/25 09:41 Height 5 ft 3 in Weight 106 lb 2 oz BMI 18.8 BP 140/70 H Blood Pressure Location Lt brachial Position Sitting Respiration 18 Pulse 88 Pulse Source Pulse Oximeter Temp 97.1 F Temp Source Temporal Artery Scan Pulse Oximetry (%) 97 Oxygen Delivery Method Room Air Intake Visit Reasons: Annual exam Aligner Required: No Accompanied by: Self / Same As Patient Allergies amoxicillin (AMOXICILLIN) Allergy (Severe, Verified 05/17/25 10:15) Anaphylaxis clindamycin (CLINDAMYCIN) Allergy (Unknown, Verified 05/17/25 10:15) UNKNOWN erythromycin base (ERYTHROMYCIN BASE) Allergy (Unknown, Verified 05/17/25 10:15) UNKNOWN ibuprofen Adverse Reaction (Intermediate, Verified 05/17/25 10:15) pain nitrofurantoin Adverse Reaction (Intermediate, Verified 05/17/25 10:15) lightheaded, sick NSAIDS (Non-Steroidal Anti-Inflamma Adverse Reaction (Intermediate, Verified 05/17/25 10:15) nausea, GI pain Sulfa (Sulfonamide Antibiotics) Adverse Reaction (Intermediate, Verified 05/17/25 10:15) Nausea and Vomiting ubrogepant (From Ubrelvy) Adverse Reaction (Intermediate, Verified 05/17/25 10:15) Nausea and Vomiting ciprofloxacin (Cipro) Adverse Reaction (Mild, Verified 05/17/25 10:15) Diarrhea quilipta Adverse Reaction (Intermediate, Uncoded 05/17/25 10:15) nausea , dizziness Medication List - Last Reconciled 05/17/25 by MILLA Floyd atogepant (Qulipta) 30 mg PO DAILY betamethasone dipropionate 0.05% 1 appl topical BID PRN szwuwjyrqn-lufvlvbuqlask-tqjm 50-325-40 mg 1 tab PO Q4H PRN 7 days cyclobenzaprine 10 mg PO BEDTIME cyclosporine 0.05% (Restasis) 1 drp ophthalmic (eye) DAILY estradiol 1 patch transdermal 2XW fexofenadine (Children[facility] Allergy) 60 mg PO BID meclizine 25 mg PO DAILY PRN 30 days onabotulinumtoxinA (Botox) 200 units IM .Q 90 days sumatriptan succinate (Imitrex) 50 mg PO ONCE PRN zolpidem 10 mg PO BEDTIME Tobacco use date assessed: 05/17/25 Dental Screening Dental Screen Date: 05/17/25 Did you have a dental visit in the last 12 months?: Yes Did you have a dental problem in the last 6 months where you did not have access to dental care?: No Was dental information given to patient?: Patient has dentist HPI Annual exam HPI Details Dentist: up to date Eye: up to date Snellen: Right: Left: Corrected vision: yes, cheaters STI screening: Colonoscopy: 2022 -recommend repeat 3-5 years, she is thinking about doing this sooner than later Pap Smer: last year, April Mammogram: yesterday PHQ-9: Flu: no does not usually take this COVID:x2 Tdap:reports that she usually gets this at school, she will get when school restarts Diet:regular Exercise: 2-5 hours a week depending on the temperature The patient is a 54-year-old female presenting for a routine wellness visit and management of chronic conditions. The patient has a history of migraines, with the last debilitating episode occurring on October 21. She experiences muscle tension in the neck and shoulders, which exacerbates her headaches. She uses butalbital for headache relief and is awaiting insurance approval for Qulipta, a daily preventive medication. The patient reports elevated liver enzymes, which were noted in recent lab work. She attributes this to frequent use of butalbital for headaches, especially during stressful periods such as the week of April 21. The patient has hyperlipidemia, with a focus on maintaining a healthy diet to manage cholesterol levels. She consumes fish and chicken regularly and avoids fast food, although she occasionally indulges in ice cream and pizza. The patient has a history of gastroesophageal reflux disease, with onions being a known trigger for her symptoms. She uses calcium carbonate for symptom relief. A tubular adenoma was found during a colonoscopy in 2022, and a follow-up is recommended in 3-5 years. The patient experienced a urinary tract infection earlier this year, which prompted a visit to the doctor. She reports sleep disturbances, often waking up at night and feeling lethargic during the day. [facility] Medical History Insomnia Microscopic hematuria Cervical dystonia Family history of pancreatic cancer Internal and external hemorrhoids without complication Intermittent palpitations Spasmodic torticollis Vertigo Migraine headache Surgical History Hx of colonoscopy History of esophagogastroduodenoscopy (EGD) History of endometrial ablation Family History Mother COPD (chronic obstructive pulmonary disease) Father No problems noted. Maternal Grandmother Pancreatic cancer, Onset Age: 57 Paternal Aunt Pancreatic cancer, Onset Age: 83 Father Pancreatic cancer, Onset Age: 57 Other Substance use disorder Social History Housing: House Alcohol intake: never Patient Tobacco Use Status: Never used Tobacco e-Cigarette/Vaping Use: Never Used Second Hand Smoke Exposure: No service: No Current occupational status: employed Cognitive needs: No Hearing needs: No Vision needs: No Questionnaire PHQ-9 Over the last 2 weeks, how often have you been bothered by any of the following problems? 1. Little interest or pleasure in doing things: not at all 2. Feeling down, depressed, or hopeless: not at all 3. Trouble falling or staying asleep, or sleeping too much: not at all 4. Feeling tired or having little energy: not at all 5. Poor appetite or overeating: not at all 6. Feeling bad about yourself - or that you are a failure or have let yourself or your family down: not at all 7. Trouble concentrating on things, such as reading the newspaper or watching television: not at all 8. Moving or speaking so slowly that other people could have noticed. Or the opposite - being so fidgety or restless that you have been moving around a lot more than usual: not at all 9. Thoughts that you would be better off or of hurting yourself in some way: not at all Total score: 0 Depression Screening Interpretation: Negative Depression Screening Done: Yes Source: Developed by Drs. Nahun Jett, Cara Marr, Moreno Reich and colleagues, with an educational gelacio from [employer]. Thrive Questionnaire Date Thrive assessed: 05/17/25 I am a: Patient What is your living situation today?: I have a steady place to live Within the past 12 months, did the food you bought not last and you didn't have the money to get more?: Never true Within the past 12 months, did you worry whether your food would run out before you got money to buy more?: Never true Do you have trouble paying for medicines?: No Do you have trouble getting transportation to medical appointments?: No Do you have trouble paying your heating and electricity bill?: No Do you have trouble taking care of your child, family member or friend?: No Do you have trouble with day-to-day activities such as bathing, preparing meals, shopping, managing finances, etc.?: No Are you currently unemployed and looking for a job?: No Are you interested in more education?: No Please select the resources that you would like help with: None Currently or been in a relationship where the following occur: No concerns reported THRIVE Score: 0 AUDIT C Alcohol Use Questionnaire (AUDIT-C) 1. How often do you have a drink containing alcohol?: Never 3. How often do you have six or more drinks on one occasion?: Never Total Score: 0 Score Reviewed/Action Taken: Yes JESSICA-7 AMB Questionnaire JESSICA-7 Date JESSICA - 7 assessed: 05/17/25 Feeling nervous, anxious, or on edge: 0 = Not at all Not being able to stop or control worryin = Not at all Worrying too much about different things: 0 = Not at all Trouble relaxin = Not at all Being so restless that it is hard to sit still: 0 = Not at all Becoming easily annoyed or irritable: 0 = Not at all Feeling afraid as if something awful might happen: 0 = Not at all Total JESSICA-7 score (0-4 normal; 5-9 mild; 10-14 moderate; 15-21 severe): 0 Source: Developed by Drs. Nahun Jett, Cara Marr, Moreno Reich and colleagues, with an educational gelacio from [employer]. Review of Systems Const Reports daytime sleepiness, Reports difficulty sleeping and Reports headache(s) (on and off) Eyes Denies loss of vision ENT Denies vertigo, Denies dizziness, Reports headache(s) (on and off), Reports neck pain (tension in her neck to travels to her head intermittently) and Denies sore throat Card Denies chest pain, Denies leg edema and Denies lightheadedness Resp Denies cough, Denies hemoptysis and Denies wheezing GI Denies abdominal pain, Denies melena, Denies constipation, Reports heartburn (depending on what she eats), Denies diarrhea and Denies vomiting Denies urinary frequency, Denies dysuria and Denies urinary urgency Musc Denies arthralgias, Denies joint swelling, Reports neck pain (tension in her neck to travels to her head intermittently), Denies numbness and Denies tingling Skin/Breast Denies lesions and Denies rash Neuro Denies Abnormal speech present, Denies behavioral changes, Denies vertigo, Denies dizziness, Reports headache(s) (on and off), Denies loss of vision, Denies memory loss, Denies numbness and Denies tingling Psych Denies anxiety, Denies behavioral changes, Denies depression, Denies memory loss and Denies panic attacks Iron/Lymph Denies easy bleeding and Denies easy bruising Aller/Immun Denies wheezing Physical exam (Primary Care) Vital Signs: Last Vital Signs Temp 97.1 F 05/17/25 09:41 Pulse 88 05/17/25 09:41 Resp 18 05/17/25 09:41 BP 140/70 H 05/17/25 09:41 Pulse Ox 97 05/17/25 09:41 Oxygen Delivery Method Room Air 05/17/25 09:41 BMI result Body Mass Index 18.8 Tobacco/Smoking Status: Tobacco use Status Tobacco use date assessed 05/17/25 05/17/25 09:43 Patient Tobacco Use Status Never used Tobacco 05/17/25 09:43 e-Cigarette/Vaping Use Never Used 05/17/25 09:43 PHQ-9: PHQ-9 Score PHQ-9: Total score 0 06/04/25 21:12 Depression Screening Interpretation: Negative Thrive Assessment: Date of Thrive Assessment Date Thrive assessed 05/17/25 05/17/25 09:43 Currently or been in a relationship where the following occur: No concerns reported Const General: healthy appearing, no acute distress, alert and awake Nutritional Appearance: well nourished Orientation/consciousness: oriented to person, oriented to place and oriented to time HENMT Ears: TM's normal bilaterally General nose exam: Normal nasal mucous membranes and turbinates present Eyes Conjunctivae: conjunctivae normal Sclerae: sclerae normal Pupils: Equal, round and reactive pupils present Neck Neck: Yes no lymphadenopathy and Yes no JVD Thyroid: Thyroid normal Carotids: no bruits Resp Effort & Inspection: normal respiratory effort and not tachypneic Auscultation: no crackles, no rales, no rhonchi and no wheezes Cardio Rate: regular rate Rhythm: regular rhythm Heart sounds: no murmurs and normal S1 and S2 GI Palpation (GI): Soft to palpation, nontender, no hepatomegaly and no splenomegaly Auscultation: normal bowel sounds General: Yes no CVA tenderness Back/Spine/Pelvis Back: no CVA tenderness Cervical Spine: No Cervical spine tenderness Skin General skin exam: no rashes or lesions noted and dry skin Neuro General: oriented to person, oriented to place, oriented to time and CN's II-XI intact bilaterally Cranial nerves: Yes Equal, round and reactive pupils present Speech: No Abnormal speech present Gait exam (Neuro): Normal gait present Motor exam (neuro): no tremor noted Deep tendon reflexes (DTR's): Right triceps reflex intensity grade: 2+, Left triceps reflex intensity grade: 2+, Rt Biceps (C5, C6): 2+, Left biceps reflex intensity grade: 2+, Right brachioradialis reflex intensity grade: 2+, Left brachioradialis reflex intensity grade: 2+, Right patellar reflex intensity grade: 2+ and Left patellar reflex intensity grade: 2+ Extrem Right upper extremity: full ROM Left upper extremity: full ROM Right lower extremity: full ROM; no edema Left lower extremity: full ROM; no edema Psych Mental Status: mental status grossly normal Speech and movement: Normal speech and movement present Affect: normal affect Attitude: cooperative Thought process: Normal thought process present Results Reviewed Results Reviewed: Laboratory Tests 04/24/25 05/08/25 15:20 07:45 WBC 5.9 RBC 4.74 Hgb 14.2 Hct 42.8 MCV 90.3 MCH 30.0 MCHC 33.2 RDW 12.1 Plt Count 223 Sodium 141 Potassium 3.9 Chloride 105 Carbon Dioxide 28 Anion Gap 12 BUN 12 Creatinine 0.61 Estimated GFR > 60 Fasting Glucose 89 Calcium 9.2 D Total Bilirubin 0.4 AST 35 H ALT 25 Alkaline Phosphatase 115 Total Protein 7.5 Albumin 4.5 Triglycerides 82 Cholesterol 216 H LDL Cholesterol, Calc 155 H HDL Cholesterol 45 25-OH Vitamin D Total 55.4 TSH 1.33 Urine pH (Auto) 6.5 Specific [place] (Auto) 1.005 Urine Protein (Auto) 0 Glucose (UA)(Auto) 0 Urine Blood (Auto) 25 Urine Bilirubin (Auto) 0 Urine Urobilinogen (Auto) 0.2 Leukocyte Esterase (Auto) 0 Coding Level of Care Code Est Pt Prev Care 40-64y(55547) Diagnoses Physical exam Z00.00 Insomnia, unspecified type G47.00 Insomnia type: unspecified Cervical dystonia G24.3 Migraine with aura, intractable, without status migrainosus G43.119 Muscle stiffness M62.89 Tubular adenoma D36.9 Hyperlipidemia, unspecified hyperlipidemia type E78.5 Hyperlipidemia type: unspecified Elevated SGOT (AST) R74.01 Time Spent (min) 38 Assessment & Plan Assessment & Plan (1) Physical exam: Code(s): Z00.00 - Encounter for general adult medical examination without abnormal findings Category: Medical Plan: Preventative guidelines and recent labs reviewed with the patient. Up-to-date on most screening. Colonoscopy in 2022 with removal of polyps, to be repeated in 3-5 years. Due for tetanus but usually gets this at school. Completed mammogram yesterday. Pap smear April of last year. (2) Insomnia: Code(s): G47.00 - Insomnia, unspecified Category: Medical Qualifiers: Insomnia type: unspecified Qualified Code(s): G47.00 - Insomnia, unspecified Plan: Reinforced sleep hygiene Continue zolpidem 10 mg at bedtime (3) Cervical dystonia: Comment: spasmodic torticollis Code(s): G24.3 - Spasmodic torticollis Category: Medical Plan: Continue cyclobenzaprine 10 mg at bedtime Continue Botox injections Follow up with Neurology as scheduled (4) Migraine with aura, intractable, without status migrainosus: Comment: she has more than 50% reduction in migraines since starting treatment with botox Code(s): G43.119 - Migraine with aura, intractable, without status migrainosus Category: Medical Plan: Continue Botox injections Follow up with Neurology as scheduled (5) Muscle stiffness: Code(s): M62.89 - Other specified disorders of muscle Category: Medical Plan: Continue Botox injection Follow up with Neurology as scheduled (6) Tubular adenoma: Code(s): D36.9 - Benign neoplasm, unspecified site Category: Medical Plan: See below (7) HLD (hyperlipidemia): Code(s): E78.5 - Hyperlipidemia, unspecified Category: Medical Qualifiers: Hyperlipidemia type: unspecified Qualified Code(s): E78.5 - Hyperlipidemia, unspecified Plan: LDL 155 decreased from 169 on 05/19/24 Discussed lifestyle modification and activity as tolerated We will continue to monitor lipid panel (8) Elevated SGOT (AST): Code(s): R74.01 - Elevation of levels of liver transaminase levels Category: Medical Plan: AST slightly elevated at 35 Limits alcohol/drugs containing Tylenol/fatty foods [place] containing tylenol and the patient is aware and will only used this moderately may use sumatriptain succinate instead, until Qulipta is approved by insurance Plan The patient will continue using butalbital for migraine relief while awaiting insurance approval for Qulipta, a preventive medication. Liver enzyme levels will be re-evaluated in a few months to monitor any changes, considering the frequent use of butalbital. The patient is advised to maintain a healthy diet to manage hyperlipidemia, focusing on fish and chicken consumption while avoiding fast food. For gastroesophageal reflux disease, the patient will continue using calcium carbonate for symptom relief and avoid known triggers such as onions. A follow-up colonoscopy is recommended in 3-5 years due to the presence of a tubular adenoma. The patient is encouraged to maintain regular exercise and address sleep disturbances by improving sleep hygiene. Patient was informed and verbally consented to the use of an ambient scribe for clinic note documentation during this visit. Orders: Orders Complete Blood Count Auto Diff 1 Year R00.2 - Palpitations, R42 - Dizziness and giddiness, R31.21 - Asymptomatic microscopic hematuria, R31.29 - Other microscopic hematuria, N39.0 - Urinary tract infection, site not specified, N30.01 - Acute cystitis with hematuria, M62.89 - Other specified disorders of muscle, G43.909 - Migraine, unspecified, not intractable, without status migrainosus, G43.719 - Chronic migraine without aura, intractable, without status migrainosus, G43.119 - Migraine with aura, intractable, without status migrainosus, G24.3 - Spasmodic torticollis, G47.00 - Insomnia, unspecified Comprehensive [place]. Panel Fast 1 Year R00.2 - Palpitations, R42 - Dizziness and giddiness, R31.21 - Asymptomatic microscopic hematuria, R31.29 - Other microscopic hematuria, N39.0 - Urinary tract infection, site not specified, N30.01 - Acute cystitis with hematuria, M62.89 - Other specified disorders of muscle, G43.909 - Migraine, unspecified, not intractable, without status migrainosus, G43.719 - Chronic migraine without aura, intractable, without status migrainosus, G43.119 - Migraine with aura, intractable, without status migrainosus, G24.3 - Spasmodic torticollis, G47.00 - Insomnia, unspecified UA CC w/rflx Micro + Cult 1 Year R00.2 - Palpitations, R42 - Dizziness and giddiness, R31.21 - Asymptomatic microscopic hematuria, R31.29 - Other microscopic hematuria, N39.0 - Urinary tract infection, site not specified, N30.01 - Acute cystitis with hematuria, M62.89 - Other specified disorders of muscle, G43.909 - Migraine, unspecified, not intractable, without status migrainosus, G43.719 - Chronic migraine without aura, intractable, without status migrainosus, G43.119 - Migraine with aura, intractable, without status migrainosus, G24.3 - Spasmodic torticollis, G47.00 - Insomnia, unspecified Lipid Panel 1 Year R00.2 - Palpitations, R42 - Dizziness and giddiness, R31.21 - Asymptomatic microscopic hematuria, R31.29 - Other microscopic hematuria, N39.0 - Urinary tract infection, site not specified, N30.01 - Acute cystitis with hematuria, M62.89 - Other specified disorders of muscle, G43.909 - Migraine, unspecified, not intractable, without status migrainosus, G43.719 - Ch ronic migraine without aura, intractable, without status migrainosus, G43.119 - Migraine with aura, intractable, without status migrainosus, G24.3 - Spasmodic torticollis, G47.00 - Insomnia, unspecified TSH reflex Free T4 1 Year R00.2 - Palpitations, R42 - Dizziness and giddiness, R31.21 - Asymptomatic microscopic hematuria, R31.29 - Other microscopic hematuria, N39.0 - Urinary tract infection, site not specified, N30.01 - Acute cystitis with hematuria, M62.89 - Other specified disorders of muscle, G43.909 - Migraine, unspecified, not intractable, without status migrainosus, G43.719 - Chronic migraine without aura, intractable, without status migrainosus, G43.119 - Migraine with aura, intractable, without status migrainosus, G24.3 - Spasmodic torticollis, G47.00 - Insomnia, unspecified Vitamin D 25-OH Total 1 Year R00.2 - Palpitations, R42 - Dizziness and giddiness, R31.21 - Asymptomatic microscopic hematuria, R31.29 - Other microsc opic hematuria, N39.0 - Urinary tract infection, site not specified, N30.01 - Acute cystitis with hematuria, M62.89 - Other specified disorders of muscle, G43.909 - Migraine, unspecified, not intractable, without status migrainosus, G43.719 - Chronic migraine without aura, intractable, without status migrainosus, G43.119 - Migraine with aura, intractable, without status migrainosus, G24.3 - Spasmodic torticollis, G47.00 - Insomnia, unspecified
--- OUTSIDE RECORDS SUMMARY | 2025-05-17 10:08 | XMS_ITS | Patient Health Record ---
Author Organization [facility] Address [address] [place] [id number] Care Team Providers Care Manager Car Name Role Phone Danie Ross MD Primary Care Provider Nahun Mirza [phone] Reason For Referral No Information Plan Of Treatment No Information Insurance Providers Payer Name Payer Address Payer Phone Subscriber Number Group Number Insured Name Patient Relationship to Insured Coverage Start Date Coverage End Date [facility] [address] [place] [address] [phone] [id number] QUINONES Self - patient is the insured
== END 2025-05-17 10:55 | disposition home or self-care (01) ==
LOC: HO.HMCH 09:36
PROVIDERS: PCP Internal Medicine
DX: Z00.00 Encounter for general adult medical examination without abnormal findings (principal); G47.00 Insomnia, unspecified; G24.3 Spasmodic torticollis; G43.119 Migraine with aura, intractable, without status migrainosus; M62.89 Other specified disorders of muscle; D36.9 Benign neoplasm, unspecified site; E78.5 Hyperlipidemia, unspecified; R74.01 Elevation of levels of liver transaminase levels

== ENCOUNTER 2025-05-22 13:51 | Outpatient (REF) | payer BC, SELFPAY ==
--- NOTE | ~2025-05-22 | US_ITS ---
EXAMINATION: US RETROPERITONEAL COMPLETE (RENAL) CLINICAL INFORMATION: Hematuria. Recurrent urinary tract infection.. COMPARISON: May 15, 2020. Correlated to CT dated June 04, 2020. TECHNIQUE: Real-time imaging of the kidneys and bladder. FINDINGS: RIGHT KIDNEY: 10 x 4 x 6. cm (SAG x AP x TRV). Normal echotexture. Normal renal cortical thickness. No hydronephrosis. No gross solid or cystic lesion detected by the technologist. LEFT KIDNEY: 12 x 5 x 5 cm (SAG x AP x TRV). Normal echotexture. Normal renal cortical thickness. No hydronephrosis. No gross solid or cystic lesion detected. BLADDER: Fluid-filled. Bilateral ureteral jets are demonstrated. Prevoid bladder volume is 452 mL. Postvoid bladder volume is 107 mL. US/US retroperitoneal comp IMPRESSION: 107 cc retained urine in a post void image. No hydronephrosis.. Electronically signed by: Dominic Lopez MD 05/22/2025 02:25 PM EDT
--- OUTSIDE RECORDS SUMMARY | 2025-05-22 14:03 | XMS_ITS | Patient Health Record ---
Author Organization [facility] Address [address] [place] [id number] Care Team Providers Care Endless Track Vehicle Supervisor Name Role Phone Danie Ross MD Primary Care Provider Nahun Mirza [phone] Reason For Referral No Information Plan Of Treatment No Information Insurance Providers Payer Name Payer Address Payer Phone Subscriber Number Group Number Insured Name Patient Relationship to Insured Coverage Start Date Coverage End Date [facility] [address] [place] [address] [phone] [id number] QUINONES Self - patient is the insured
== END 2025-05-22 13:52 | disposition home or self-care (01) ==
LOC: HO.HMGCX 13:51
PROVIDERS: PCP Internal Medicine; Visit Provider Nurse Practitioner Family
DX: R31.29 Other microscopic hematuria (principal); N39.0 Urinary tract infection, site not specified
CPT/HCPCS: 76770

== ENCOUNTER → 2025-05-22 13:54 | Outpatient (BNV) | payer BC, SELFPAY | PROVIDERS: PCP Internal Medicine; Visit Provider Radiology Diagnostic Radiology | DX: R31.9 Hematuria, unspecified (principal); N39.0 Urinary tract infection, site not specified | CPT/HCPCS: 76770 ==

== ENCOUNTER 2025-07-18 07:16 | Outpatient (AMB) | payer BC, SELFPAY ==
--- OUTSIDE RECORDS SUMMARY | 2025-07-18 07:18 | XMS_ITS | Patient Health Record ---
Author Organization [facility] Address [address] [place] [id number] Care Team Providers Care Student Ministries Director Name Role Phone Danie Ross MD Primary Care Provider Nahun Mirza [phone] Reason For Referral No Information Plan Of Treatment No Information Insurance Providers Payer Name Payer Address Payer Phone Subscriber Number Group Number Insured Name Patient Relationship to Insured Coverage Start Date Coverage End Date [facility] [address] [place] [address] [id number] [id number] QUINONES Self - patient is the insured
--- NOTE | 2025-07-18 07:26 | AM.OFFWIN_ITS ---
Intake Vital Signs 07/18/25 07:29 Height 5 ft 3 in BP 122/70 Blood Pressure Location Lt brachial Position Sitting Pulse 88 Pulse Source Pulse Oximeter Temp 97.8 F Temp Source Oral Pulse Oximetry (%) 99 Oxygen Delivery Method Room Air Intake Visit Reasons: EP LT eye redness, painful, irritation, throbbing Patient Tobacco Use Status: Never used Tobacco Allergies amoxicillin (AMOXICILLIN) Allergy (Severe, Verified 07/18/25 07:29) Anaphylaxis clindamycin (CLINDAMYCIN) Allergy (Unknown, Verified 07/18/25 07:29) UNKNOWN erythromycin base (ERYTHROMYCIN BASE) Allergy (Unknown, Verified 07/18/25 07:29) UNKNOWN ibuprofen Adverse Reaction (Intermediate, Verified 07/18/25 07:29) pain nitrofurantoin Adverse Reaction (Intermediate, Verified 07/18/25 07:29) lightheaded, sick NSAIDS (Non-Steroidal Anti-Inflamma Adverse Reaction (Intermediate, Verified 07/18/25 07:29) nausea, GI pain Sulfa (Sulfonamide Antibiotics) Adverse Reaction (Intermediate, Verified 07/18/25 07:29) Nausea and Vomiting ubrogepant (From Ubrelvy) Adverse Reaction (Intermediate, Verified 07/18/25 07:29) Nausea and Vomiting ciprofloxacin (Cipro) Adverse Reaction (Mild, Verified 07/18/25 07:29) Diarrhea Do you need a note to return to daycare/school/sports/work: Yes HPI HPI Comments History of Present Illness Details History of Present Illness - The patient is a 54-year-old female pr esenting with left eye pain and suspected corneal abrasion. - Reports severe left eye pain for 6 day s, with a sensation of a foreign body present. - Pain worsens with light exposure and c omputer use, causing fatigue. - Denies vision changes but notes increa sed light sensitivity. - Does not wear contact lenses, uses maday ding glasses. - Attempts to alleviate symptoms with co mpresses and foreign body removal worsened the pain. - History of eye poking with Restasis ap plication, potentially contributing to the condition. - Allergic to erythromycin, causing naus ea and vomiting. Physical Exam General: Cooperative, healthy appearing, comfortable, no acute distress and well developed Orientation: Patient oriented x3 Limitations: No limitations Head: Normal to inspection Ears: Hearing grossly normal bilaterally Nose: Normal External nose present Face and sinus: Normal facial exam Eyes: Left eye painful, corneal abrasions present, no vision changes reported, no discharge or crusting noted Neck: Normal visual inspection and Yes full ROM Respiratory: Normal respiratory effort and able to speak in complete sentences. Skin: No rashes or lesions noted Neuro: Patient oriented x3 Extremities: Normal to inspection Review of Systems - Ophthalmic: Reports severe eye pain, s ensation of foreign body, increased light sensitivity. Denies vision changes. All systems reviewed and are unremarkable except as noted in HPI [facility] Medical History Insomnia Microscopic hematuria Cervical dystonia Family history of pancreatic cancer Internal and external hemorrhoids without complication Intermittent palpitations Spasmodic torticollis Vertigo Migraine headache Surgical History Hx of colonoscopy History of esophagogastroduodenoscopy (EGD) History of endometrial ablation Family History Mother COPD (chronic obstructive pulmonary disease) Father No problems noted. Maternal Grandmother Pancreatic cancer, Onset Age: 57 Paternal Aunt Pancreatic cancer, Onset Age: 83 Father Pancreatic cancer, Onset Age: 57 Other Substance use disorder Social History Housing: House Alcohol intake: never Patient Tobacco Use Status: Never used Tobacco e-Cigarette/Vaping Use: Never Used Second Hand Smoke Exposure: No service: No Current occupational status: employed Cognitive needs: No Hearing needs: No Vision needs: No Physical Exam Vital Signs: Last Vital Signs Temp 97.8 F 07/18/25 07:29 Pulse 88 07/18/25 07:29 BP 122/70 07/18/25 07:29 Pulse Ox 99 07/18/25 07:29 Oxygen Delivery Method Room Air 07/18/25 07:29 Office Procedures Fluorescein eye exam Details: Applied 2 drops of tetracaine eyedrops to the left eye, applied dye and then looked under fluorescein light to observe three 0.30cm round corneal abrasions inferior to the pupil. Assessment & Plan Assessment & Plan (1) Corneal abrasion, left: Code(s): S05.02XA - Injury of conjunctiva and corneal abrasion without foreign body, left eye, initial encounter Qualifiers: Encounter type: initial encounter Qualified Code(s): S05.02XA - Injury of conjunctiva and corneal abrasion without foreign body, left eye, initial encounter Plan: Plan Patient was informed and verbally consented to the use of an ambient scribe for clinic note documentation during this visit. 1. Corneal Abrasion - Fluoroscein examination confirmed multiple small corneal abrasions in the left eye. - Numbing drops were applied and gave pain relief, indicating corneal abrasion as the likely cause of pain. - Prescribed antibiotic eye ointment to prevent bacterial infection and provide lubrication. - Advised to apply ointment four times daily while awake, and use regular eye drops if needed for dryness. - Recommended follow-up with an card doffer if pain develops or vision changes occur. Gave patient names of 2 local ophthalmologists to reach out to. Orders: Orders AMB Fluorescein eye exam Today S05.02XA - Injury of conjunctiva and corneal abrasion without foreign body, left eye, initial encounter Medications: New erythromycin Apply to left eye 4 times a day while awake 0.5 inches ophthalmic (eye) QID 3.5 grams 0RF Coding Level of Care Code Est Pt Level 3 (93592) Diagnoses Abrasion of left cornea, initial encounter S05.02XA Encounter type: initial encounter
[2025-07-18 07:29] VITALS: BP 122/70; PULSE 88; TEMP 36.6; O2SAT 99
== END 2025-07-18 07:53 | disposition home or self-care (01) ==
PROVIDERS: PCP Internal Medicine; Visit Provider Physician Assistant
DX: S05.02XA Injury of conjunctiva and corneal abrasion without foreign body, left eye, initial encounter (principal)

== ENCOUNTER 2025-08-15 14:59 | Outpatient (AMB) | payer BC, SELFPAY ==
--- NOTE | 2025-08-15 15:01 | A.OFFVIS_ITS ---
Vital Signs 08/15/25 15:03 Height 5 ft 3 in Weight 108 lb 6 oz BMI 19.2 BP 138/80 Blood Pressure Location Rt brachial Position Sitting Pulse 88 Pulse Source Pulse Oximeter Pulse Oximetry (%) 100 Oxygen Delivery Method Room Air Intake Visit Reasons: Botox Intake Note: Botox 300 Pt supplied Trawl Net Maker Required: No Accompanied by: Self / Same As Patient Allergies amoxicillin (AMOXICILLIN) Allergy (Severe, Verified 08/15/25 15:02) Anaphylaxis clindamycin (CLINDAMYCIN) Allergy (Unknown, Verified 08/15/25 15:02) UNKNOWN erythromycin base (ERYTHROMYCIN BASE) Allergy (Unknown, Verified 08/15/25 15:02) UNKNOWN ibuprofen Adverse Reaction (Intermediate, Verified 08/15/25 15:02) pain nitrofurantoin Adverse Reaction (Intermediate, Verified 08/15/25 15:02) lightheaded, sick NSAIDS (Non-Steroidal Anti-Inflamma Adverse Reaction (Intermediate, Verified 08/15/25 15:02) nausea, GI pain Sulfa (Sulfonamide Antibiotics) Adverse Reaction (Intermediate, Verified 08/15/25 15:02) Nausea and Vomiting ubrogepant (From Ubrelvy) Adverse Reaction (Intermediate, Verified 08/15/25 15:02) Nausea and Vomiting ciprofloxacin (Cipro) Adverse Reaction (Mild, Verified 08/15/25 15:02) Diarrhea Medication List - Last Reconciled 08/15/25 by Beena Bergman MD betamethasone dipropionate 0.05% 1 appl topical BID PRN edvrkcfqll-zngvqkxgjxgcw-lewp 50-325-40 mg 1 tab PO Q4H PRN 7 days cyclobenzaprine 10 mg PO BEDTIME cyclosporine 0.05% (Restasis) 1 drp ophthalmic (eye) DAILY estradiol 1 patch transdermal 2XW fexofenadine (Children's Uma Allergy) 60 mg PO BID meclizine 25 mg PO DAILY PRN 30 days omeprazole magnesium (Prilosec OTC) 20 mg PO DAILY onabotulinumtoxinA (Botox) 200 units IM .Q 90 days sumatriptan succinate (Imitrex) 50 mg PO ONCE PRN zolpidem 10 mg PO BEDTIME PRN 30 days HPI Comments Details: ? 54y/o female comes for treatment of spasmodic torticollis and migraines with botox . Since starting on Botox the patient has had more than 50% reduction in the number of migraine days . Prior to Botox Number of migraine days /month- 25-30 Intensity- 10/10 Qnxhkyyor-4-2/week ER- multiple visits Post Botox Numbe rof migraine days- 10-12 days/month Intensity- 5-8/10 ER - none Intensity - decreased use of medications- less Last injection- 3 ??? Most frequent reported adverse reactions following injection of botox for chronic migraine include neck pain (9%), headache(5%), eyelid ptosis(4%), migraine(4%), muscular weakness(4%), musculuskeletal stiffness(4%), bronchitis(3%), injection site pain (3%), musculoskeletal pain(3%), myalgia(3%), facial paresis(2%), HTN(2%) and muscle spasms(2%) were discussed in detail. ??? Botulinum toxin typeA 100units X 3 Lot no [id number] expiration Sep 2027 was diluted with 4 cc of normal saline . v ??? Muscles injected- ??? Frontalis 4 sites ? Telesales Team Leader- 2 sites ??? Temporalis- 6 sites ? 5 units each ??? Trapezius - right 30 units ??? Left 30 units ??? left levator 50units units right levator 25 units right splenius 50 units ??? Total use- 300units ??? PFSH Medical History Insomnia Microscopic hematuria Cervical dystonia Family history of pancreatic cancer Internal and external hemorrhoids without complication Intermittent palpitations Spasmodic torticollis Vertigo Migraine headache Surgical History Hx of colonoscopy History of esophagogastroduodenoscopy (EGD) History of endometrial ablation Family History Mother COPD (chronic obstructive pulmonary disease) Father No problems noted. Maternal Grandmother Pancreatic cancer, Onset Age: 57 Paternal Aunt Pancreatic cancer, Onset Age: 83 Father Pancreatic cancer, Onset Age: 57 Other Substance use disorder Social History Housing: House Alcohol intake: never Patient Tobacco Use Status: Never used Tobacco e-Cigarette/Vaping Use: Never Used Second Hand Smoke Exposure: No service: No Current occupational status: employed Cognitive needs: No Hearing needs: No Vision needs: No Physical Exam Vital Signs: Last Vital Signs Pulse 88 08/15/25 15:03 BP 138/80 08/15/25 15:03 Pulse Ox 100 08/15/25 15:03 Oxygen Delivery Method Room Air 08/15/25 15:03 BMI result Body Mass Index 19.2 Const General: cooperative, healthy appearing and comfortable Nutritional Appearance: average body habitus Orientation/consciousness: patient oriented x3 Eyes Pupils: Equal, round and reactive pupils present Neck Other: antecollis Neuro General: patient oriented x3, gait normal, tone normal and moves all extremities Cranial nerves: Yes CN's II-XII intact bilaterally, Yes Facial sensation intact/muscles of mastication intact and Yes Equal, round and reactive pupils present Office Procedures Botulinum toxin Injection 37812 - Migraine Procedure code (CPT) selection complete Office Meds onabotulinumtoxinA 100 unit solution for injection Performing Provider: Beena Bergman MD Performing Location: [facility] [place] [facility] Administered by: Beena Bergman MD on 08/15/25 15:45 Dose Route Admin Location Dispensed Lot Number Expiration Date [facility] Sheet Music Salesperson 300 unit IM 300 units [id number] ALLERGAN /BOTOX Total Dispensed Waste 300 units 0 % Comments: see hpi Assessment & Plan Assessment & Plan (1) Spasmodic torticollis: Code(s): G24.3 - Spasmodic torticollis Category: Medical (2) Chronic migraine without aura: Code(s): G43.709 - Chronic migraine without aura, not intractable, without status migrainosus Category: Medical Qualifiers: Status migrainosus presence: without status migrainosus Intractability: intractable Qualified Code(s): G43.719 - Chronic migraine without aura, intractable, without status migrainosus (3) Migraine with aura, intractable, without status migrainosus: Comment: she has more than 50% reduction in migraines since starting treatment with botox Code(s): G43.119 - Migraine with aura, intractable, without status migrainosus Category: Medical Plan Patient tolerated the procedure well she will call with any side effects ANti JESSICA and Ampiphysin antibody levels- normal Orders: Orders AMB Botulinum toxin Injection - Patient Supplied N/C Today G24.3 - Spasmodic torticollis Coding Level of Care Code Est Pt Level 1 (66120) Diagnoses Spasmodic torticollis G24.3 Intractable chronic migraine without aura and without status migrainosus G43.719 Status migrainosus presence: without status migrainosus Intractability: intractable Migraine with aura, intractable, without status migrainosus G43.119 CPT Codes Botox Injection - Botox 3: 01104 - Migraine ([id number])
[2025-08-15 15:03] VITALS: BP 138/80; PULSE 88; O2SAT 100; BMI 19.2
--- OUTSIDE RECORDS SUMMARY | 2025-08-15 19:25 | XMS_ITS | Patient Health Record ---
Author Organization [facility] Address [address] [place] [id number] Care Team Providers Care Early Learning Teacher Name Role Phone Danie Ross MD Primary Care Provider Nahun Mirza [phone] Reason For Referral No Information Plan Of Treatment No Information Insurance Providers Payer Name Payer Address Payer Phone Subscriber Number Group Number Insured Name Patient Relationship to Insured Coverage Start Date Coverage End Date [facility] [address] [place] [address] [phone] [id number] ZEHRA QUINONES Self - patient is the insured
== END 2025-08-15 15:39 | disposition home or self-care (01) ==
LOC: HO.HSMS 15:00
PROVIDERS: PCP Internal Medicine; Visit Provider Psychiatry & Neurology Neurology
DX: G43.719 Chronic migraine without aura, intractable, without status migrainosus (principal)
CPT/HCPCS: 64615; 99499

== ENCOUNTER → 2025-08-15 14:59 | Outpatient (BNVA) | payer BC, SELFPAY | PROVIDERS: PCP Internal Medicine; Visit Provider Psychiatry & Neurology Neurology | DX: G43.119 Migraine with aura, intractable, without status migrainosus (principal); G43.719 Chronic migraine without aura, intractable, without status migrainosus; G24.3 Spasmodic torticollis | CPT/HCPCS: 64615; J0585 ==

== ENCOUNTER 2025-08-29 15:04 | Outpatient (AMB) | payer BC, SELFPAY ==
--- NOTE | 2025-08-29 15:11 | A.OFFVIS_ITS ---
Intake Visit Reasons: /US Intake Note: Patient is present for /US Urology Medication:NONE Antibiotic Allergy:AMOXICILLIN,ERTHROMYCIN,NITROFRURANTION,SULFA,CIPROFLOXACIN Blood Thinner: NONE Coal Crusher Operator Required: No Allergies amoxicillin (AMOXICILLIN) Allergy (Severe, Verified 08/29/25 15:46) Anaphylaxis clindamycin (CLINDAMYCIN) Allergy (Unknown, Verified 08/29/25 15:46) UNKNOWN erythromycin base (ERYTHROMYCIN BASE) Allergy (Unknown, Verified 08/29/25 15:46) UNKNOWN ibuprofen Adverse Reaction (Intermediate, Verified 08/29/25 15:46) pain nitrofurantoin Adverse Reaction (Intermediate, Verified 08/29/25 15:46) lightheaded, sick NSAIDS (Non-Steroidal Anti-Inflamma Adverse Reaction (Intermediate, Verified 08/29/25 15:46) nausea, GI pain Sulfa (Sulfonamide Antibiotics) Adverse Reaction (Intermediate, Verified 08/29/25 15:46) Nausea and Vomiting ubrogepant (From Ubrelvy) Adverse Reaction (Intermediate, Verified 08/29/25 15:46) Nausea and Vomiting ciprofloxacin (Cipro) Adverse Reaction (Mild, Verified 08/29/25 15:46) Diarrhea Medication List - Last Reconciled 08/29/25 by SANG Schneider-BC betamethasone dipropionate 0.05% 1 appl topical BID PRN juvybwdvbt-iuotrjmigzkst-txzb 50-325-40 mg 1 tab PO Q4H PRN 7 days cyclobenzaprine 10 mg PO BEDTIME cyclosporine 0.05% (Restasis) 1 drp ophthalmic (eye) DAILY estradiol 1 patch transdermal 2XW fexofenadine (Children's Uma Allergy) 60 mg PO BID meclizine 25 mg PO DAILY PRN 30 days omeprazole magnesium (Prilosec OTC) 20 mg PO DAILY onabotulinumtoxinA (Botox) 200 units IM .Q 90 days sumatriptan succinate (Imitrex) 50 mg PO ONCE PRN zolpidem 10 mg PO BEDTIME PRN 30 days HPI Comments Details: Lorraine is a 54 year old female patient of Dr. Loving. She has a past medical history of microscopic hematuria, cervical dystonia, family history of pancreatic cancer, hemorrhoids, intermittent palpitations, spasmodic torticollis, vertigo, and headaches. She presents to the office today for follow-up. Of note, patient was seen approximately 4 months ago as a new patient for microscopic hematuria at which time a retroperitoneal ultrasound was ordered for further assessment evaluation in the patient's urine was sent for urine cytology. These results were reviewed and communicated with the patient today. 06/12 bilateral kidneys are normal in cortical thickness and echotexture. No renal calculi, hydronephrosis, or solid masses noted bilaterally. The bladder is fluid-filled. Postvoid bladder volume 107 mL. Urine cytology: 05/12 Negative for high-grade urothelial carcinoma. She denies having had any bothersome urinary issues or concerns. She denies any previous history of nicotine dependence and or workplace chemical exposure. We did discuss at length potential causes of microscopic hematuria as well as further workup and risks and benefits of these interventions. She denies urinary urgency, urinary frequency, incontinence, nocturia, gross/visible hematuria, dysuria, foul smelling urine, changes to urinary stream, flank pain, fever, and or chills. She is happy with her current voiding parameters. I discussed reasons for blood in the urine may include but are not limited to kidney stones, cancer in the urinary tract, kidney stone disease or inflammatory conditions of the urinary tract. I have discussed workup to include cystoscopy evaluation. All questions were answered. She otherwise offers no other issues or concerns at this time. [facility] Medical History Insomnia Microscopic hematuria Cervical dystonia Family history of pancreatic cancer Internal and external hemorrhoids without complication Intermittent palpitations Spasmodic torticollis Vertigo Migraine headache Surgical History Hx of colonoscopy History of esophagogastroduodenoscopy (EGD) History of endometrial ablation Family History Mother COPD (chronic obstructive pulmonary disease) Father No problems noted. Maternal Grandmother Pancreatic cancer, Onset Age: 57 Paternal Aunt Pancreatic cancer, Onset Age: 83 Father Pancreatic cancer, Onset Age: 57 Other Substance use disorder Social History Housing: House Alcohol intake: never Patient Tobacco Use Status: Never used Tobacco e-Cigarette/Vaping Use: Never Used Second Hand Smoke Exposure: No service: No Current occupational status: employed Cognitive needs: No Hearing needs: No Vision needs: No Review of Systems Const All systems reviewed & are unremarkable except as noted in HPI and below Physical Exam Const General: cooperative, healthy appearing, comfortable, no acute distress, well developed, alert and awake Orientation/consciousness: patient oriented x3 Limitations: no limitations HEENT Head: Yes normal to inspection, Yes normocephalic and Yes atraumatic Ears: hearing grossly normal bilaterally Eyes General: appearance normal, both eyes and all related structures Neck Neck: Yes normal visual inspection and Yes trachea midline Chest Chest palpation & inspection: normal inspection of the chest Resp Effort & Inspection: normal respiratory effort and able to speak in complete sentences Cardio Rate: regular rate GI Inspection: Yes normal to inspection General: Yes no CVA tenderness Back/Spine/Pelvis Back: no CVA tenderness Skin General skin exam: no rashes or lesions noted Neuro General: patient oriented x3 Extrem General: Yes normal to inspection Psych Appearance: grossly normal and well kempt Mental Status: mental status grossly normal Speech and movement: Normal speech and movement present and Clear speech present Affect: normal affect Attitude: cooperative Thought process: Normal thought process present Thought content: Normal thought content present Insight: Fair insight present (Psych) Judgement: Fair judgement present (Psych) Results AMB Urinalysis, Automated UA Leukoctes 0 Shaista/uL Last Edit by EAMON Tenorio on 08/29/25 16:30 UA Nitrite Negative Last Edit by EAMON Tenorio on 08/29/25 16:30 UA Urobilinogen 0.2 mg/dL Last Edit by EAMON Tenorio on 08/29/25 16:3 0 UA Protein 0 mg/dL Last Edit by EAMON Tenorio on 08/29/25 16:30 UA pH 6.5 Last Edit by EAMON Tenorio on 08/29/25 16:30 UA Blood 80 Matthieu/uL Last Edit by EAMON Tenorio on 08/29/25 16:30 UA Specific [place] 1.010 Last Edit by EAMON Tenorio on 08/29/25 16: 30 UA Ketone Negative Last Edit by EAMON Tenorio on 08/29/25 16:30 UA Bilirubin 0 mg/dL Last Edit by EAMON Tenorio on 08/29/25 16:30 UA Glucose 0 mg/dL Last Edit by EAMON Tenorio on 08/29/25 16:30 Results Reviewed Results Reviewed: Laboratory Last Values Urine pH (Auto) 6.5 08/29/25 16:29 Specific [place] (Auto) 1.010 08/29/25 16:29 Urine Protein (Auto) 0 mg/dL 08/29/25 16:29 Glucose (UA)(Auto) 0 mg/dL 08/29/25 16:29 Urine Ketones (Auto) Negative 08/29/25 16: Urine Blood (Auto) 80 Matthieu/uL 08/29/25 16: Urine Nitrite (Auto) Negative 08/29/25 16:29 Urine Bilirubin (Auto) 0 mg/dL 08/29/25 16:29 Urine Urobilinogen (Auto) 0.2 mg/dL 08/29/25 16:29 Leukocyte Esterase (Auto) 0 Shaista/uL 08/29/25 16:29 Date of Service: 05/22/25 Procedure(s): US retroperitoneal comp FINDINGS: RIGHT KIDNEY: 10 x 4 x 6. cm (SAG x AP x TRV). Normal echotexture. Normal renal cortical thickness. No hydronephrosis. No gross solid or cystic lesion detected by the technologist. LEFT KIDNEY: 12 x 5 x 5 cm (SAG x AP x TRV). Normal echotexture. Normal renal cortical thickness. No hydronephrosis. No gross solid or cystic lesion detected. BLADDER: Fluid-filled. Bilateral ureteral jets are demonstrated. Prevoid bladder volume is 452 mL. Postvoid bladder volume is 107 mL. IMPRESSION: 107 cc retained urine in a post void image. No hydronephrosis.. Assessment & Plan Assessment & Plan (1) Asymptomatic microscopic hematuria: Code(s): R31.21 - Asymptomatic microscopic hematuria Category: Medical Plan In office urinalysis results reviewed with the patient today; as noted above; will send for urine cytology. Recent retroperitoneal ultrasound results reviewed with the patient today; as noted above. Previous urine cytology results reviewed with the patient today; as noted above. We did discussed potential causes of microscopic hematuria as well as further treatment options and risks and benefits of these treatment options. All questions were answered. She currently denies any bothersome urinary issues or concerns. We will continue with surveillance monitoring. Follow-up in 6 months with urinalysis; or sooner with any issues, concerns, and or questions. Orders: Orders Urine Cytology Today R31.29 - Other microscopic hematuria AMB Urinalysis Automated Today Z13.9 - Encounter for screening, unspecified Patient Instructions: The patient had an opportunity to ask questions regarding the treatment plan. All questions were answered. Physical exam, labs, and imaging were discussed and reviewed in detail. As well as risks, benefits, and discussion of treatment choices. No major barriers to understanding were identified. The patient expressed understanding and agreement with the above treatment plan. The patient was made aware they should contact our office by phone for worsening of their current condition, the appearance of new symptoms, or with any questions or concerns. Compliance is encouraged with any medications and follow up testing that is ordered. It is a privilege to be allowed the opportunity to participate in? your urological care.? Again, if you have any questions or concerns If you have any questions or concerns please do not hesitate to contact me. The office is [phone]. This note is constructed using voice recognition software. While every effort has been made to ensure accuracy coordinator of health services errors may have been included. Yours sincerely, JOSE ANTONIO Schneider Coding Level of Care Code Est Pt Level 3 (83888) Diagnoses Asymptomatic microscopic hematuria R31.21
--- OUTSIDE RECORDS SUMMARY | 2025-08-29 16:48 | XMS_ITS | Patient Health Record ---
Author Organization [facility] Address [address] [place] [id number] Care Team Providers Care Registered Nurse Teacher Name Role Phone Danie Ross MD Primary Care Provider Nahun Mirza [phone] Reason For Referral No Information Plan Of Treatment No Information Insurance Providers Payer Name Payer Address Payer Phone Subscriber Number Group Number Insured Name Patient Relationship to Insured Coverage Start Date Coverage End Date [facility] [address] [place] [address] [id number] ZEHRA QUINONES Self - patient is the insured
== END 2025-08-29 16:01 | disposition home or self-care (01) ==
LOC: HO.HUSH 15:04
PROVIDERS: PCP Internal Medicine; Visit Provider Nurse Practitioner Family
DX: R31.21 Asymptomatic microscopic hematuria (principal); Z13.9 Encounter for screening, unspecified
CPT/HCPCS: 99213

== ENCOUNTER 2025-08-29 15:04 | Outpatient (REF) | payer BC, SELFPAY | END 2025-08-29 15:05 | disposition home or self-care (01) | LOC: HO.LAB 15:04 | PROVIDERS: PCP Internal Medicine; Visit Provider Nurse Practitioner Family | DX: R31.21 Asymptomatic microscopic hematuria (principal); Z13.89 Encounter for screening for other disorder | CPT/HCPCS: 81003; 88112 ==

== ENCOUNTER 2025-09-05 16:26 | Outpatient (AMB) | payer BC, SELFPAY ==
[2025-09-05 16:34] VITALS: BP 122/80; PULSE 88; O2SAT 98; BMI 19.0
--- NOTE | 2025-09-05 16:34 | A.OFFPC_ITS ---
Vital Signs 09/05/25 16:34 Height 5 ft 3 in Weight 107 lb 2 oz BMI 19.0 BP 122/80 Blood Pressure Location Lt brachial Position Sitting Pulse 88 Pulse Source Pulse Oximeter Pulse Oximetry (%) 98 Oxygen Delivery Method Room Air Intake Visit Reasons: follow up Nurse Discharge Planner Required: No Accompanied by: Self / Same As Patient Allergies amoxicillin (AMOXICILLIN) Allergy (Severe, Verified 09/05/25 17:10) Anaphylaxis clindamycin (CLINDAMYCIN) Allergy (Unknown, Verified 09/05/25 17:10) UNKNOWN erythromycin base (ERYTHROMYCIN BASE) Allergy (Unknown, Verified 09/05/25 17:10) UNKNOWN ibuprofen Adverse Reaction (Intermediate, Verified 09/05/25 17:10) pain nitrofurantoin Adverse Reaction (Intermediate, Verified 09/05/25 17:10) lightheaded, sick NSAIDS (Non-Steroidal Anti-Inflamma Adverse Reaction (Intermediate, Verified 09/05/25 17:10) nausea, GI pain Sulfa (Sulfonamide Antibiotics) Adverse Reaction (Intermediate, Verified 09/05/25 17:10) Nausea and Vomiting ubrogepant (From Ubrelvy) Adverse Reaction (Intermediate, Verified 09/05/25 17:10) Nausea and Vomiting ciprofloxacin (Cipro) Adverse Reaction (Mild, Verified 09/05/25 17:10) Diarrhea Medication List - Last Reconciled 09/05/25 by Mark Loving MD betamethasone dipropionate 0.05% 1 appl topical BID PRN kftfgfpnxv-cwngkiwrshjhr-hxdy 50-325-40 mg 1 tab PO Q4H PRN 7 days cyclobenzaprine 10 mg PO BEDTIME cyclosporine 0.05% (Restasis) 1 drp ophthalmic (eye) DAILY estradiol 1 patch transdermal 2XW fexofenadine ([facility]) 60 mg PO BID meclizine 25 mg PO DAILY PRN 30 days omeprazole magnesium (Prilosec OTC) 20 mg PO DAILY onabotulinumtoxinA (Botox) 200 units IM .Q 90 days sumatriptan succinate (Imitrex) 50 mg PO ONCE PRN zolpidem 10 mg PO BEDTIME PRN 30 days Tobacco use date assessed: 09/05/25 Dental Screening Dental Screen Date: 09/05/25 Did you have a dental visit in the last 12 months?: Yes Did you have a dental problem in the last 6 months where you did not have access to dental care?: No Was dental information given to patient?: Patient has dentist HPI follow up HPI Details The patient is a 54-year-old female presenting for medication refills and management of chronic conditions. 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 She receives Botox injections, which help by relaxing the muscles, and also undergoes massage therapy for her dystonia. She experiences muscular headaches originating in the back of the head that cause vertigo, for which she takes Fioricet, noting it is only effective for this specific type of headache and not for her TMJ-related pain For sleep, the patient takes zolpidem and is requesting for a 90-day supply for her prescriptions, mostly for cost and convenience, noting that her insurance does not provide coverage. She specifies a preference for the [employer] brand of generic zolpidem, as a different brand caused side effects. The patient also takes cyclobenzaprine, which is currently on ready-fill at the pharmacy. She denies any chest pains, no increased SOB No nausea/vomiting, no abdominal pain No change in bowel habits noted [facility] Medical History (Updated 09/06/25 @ 04:45 by Mark Loving MD) Allergic rhinitis Insomnia Microscopic hematuria Cervical dystonia Family history of pancreatic cancer Internal and external hemorrhoids without complication Intermittent palpitations Spasmodic torticollis Vertigo Migraine headache Surgical History Hx of colonoscopy History of esophagogastroduodenoscopy (EGD) History of endometrial ablation Family History Mother COPD (chronic obstructive pulmonary disease) Father No problems noted. Maternal Grandmother Pancreatic cancer, Onset Age: 57 Paternal Aunt Pancreatic cancer, Onset Age: 83 Father Pancreatic cancer, Onset Age: 57 Other Substance use disorder Social History Housing: House Alcohol intake: never Patient Tobacco Use Status: Never used Tobacco e-Cigarette/Vaping Use: Never Used Second Hand Smoke Exposure: No service: No Current occupational status: employed Cognitive needs: No Hearing needs: No Vision needs: No Questionnaire PHQ-9 Over the last 2 weeks, how often have you been bothered by any of the following problems? 1. Little interest or pleasure in doing things: not at all 2. Feeling down, depressed, or hopeless: not at all 3. Trouble falling or staying asleep, or sleeping too much: not at all 4. Feeling tired or having little energy: not at all 5. Poor appetite or overeating: not at all 6. Feeling bad about yourself - or that you are a failure or have let yourself or your family down: not at all 7. Trouble concentrating on things, such as reading the newspaper or watching television: not at all 8. Moving or speaking so slowly that other people could have noticed. Or the opposite - being so fidgety or restless that you have been moving around a lot more than usual: not at all 9. Thoughts that you would be better off or of hurting yourself in some way: not at all Total score: 0 Depression Screening Interpretation: Negative Depression Screening Done: Yes 78650 - PHQ-9 Billing: Yes Source: Developed by Drs. Nahun Jett, Cara Marr, Moreno Reich and colleagues, with an educational gelacio from [employer]. Thrive Questionnaire Date Thrive assessed: 09/05/25 I am a: Patient What is your living situation today?: I have a steady place to live Within the past 12 months, did the food you bought not last and you didn't have the money to get more?: Never true Within the past 12 months, did you worry whether your food would run out before you got money to buy more?: Never true Do you have trouble paying for medicines?: No Do you have trouble getting transportation to medical appointments?: No Do you have trouble paying your heating and electricity bill?: No Do you have trouble taking care of your child, family member or friend?: No Do you have trouble with day-to-day activities such as bathing, preparing meals, shopping, managing finances, etc.?: No Are you currently unemployed and looking for a job?: No Are you interested in more education?: No Please select the resources that you would like help with: None Currently or been in a relationship where the following occur: No concerns reported THRIVE Score: 0 AUDIT C Alcohol Use Questionnaire (AUDIT-C) 1. How often do you have a drink containing alcohol?: Never 3. How often do you have six or more drinks on one occasion?: Never Total Score: 0 Score Reviewed/Action Taken: Yes JESSICA-7 AMB Questionnaire JESSICA-7 Date JESSICA - 7 assessed: 09/05/25 Feeling nervous, anxious, or on edge: 0 = Not at all Not being able to stop or control worryin = Not at all Worrying too much about different things: 0 = Not at all Trouble relaxin = Not at all Being so restless that it is hard to sit still: 0 = Not at all Becoming easily annoyed or irritable: 0 = Not at all Feeling afraid as if something awful might happen: 0 = Not at all Total JESSICA-7 score (0-4 normal; 5-9 mild; 10-14 moderate; 15-21 severe): 0 Source: Developed by Drs. Nahun Jett, Cara Marr, Moreno Reich and colleagues, with an educational gelacio from [employer]. Review of Systems Const Denies chills, Reports difficulty sleeping, Denies fatigue, Denies fever(s) and Reports headache(s) (recurrent) ENT Denies dysphagia, Denies dizziness, Denies otalgia, Reports headache(s) (recurrent), Reports neck pain (frequent/recurrent), Denies odynophagia and Denies sore throat Card Denies chest pain, Denies palpitations and Denies dyspnea Resp Denies chest congestion, Denies cough and Denies dyspnea GI Denies abdominal pain, Denies constipation, Denies dysphagia, Denies heartburn, Denies diarrhea, Denies nausea, Denies odynophagia and Denies vomiting Denies difficulty voiding (but (+) sensation of incomplete voiding at times), Denies nocturia, Denies dysuria and Denies urinary urgency Musc Denies back pain and Reports neck pain (frequent/recurrent) Skin/Breast Denies rash Neuro Denies dizziness and Reports headache(s) (recurrent) Endo Denies fatigue and Denies palpitations Physical exam (Primary Care) Vital Signs: Last Vital Signs Pulse 88 09/05/25 16:34 BP 122/80 09/05/25 16:34 Pulse Ox 98 09/05/25 16:34 Oxygen Delivery Method Room Air 09/05/25 16:34 BMI result Body Mass Index 19.0 Tobacco/Smoking Status: Tobacco use Status Tobacco use date assessed 09/05/25 09/05/25 16:40 Patient Tobacco Use Status Never used Tobacco 09/05/25 16:40 e-Cigarette/Vaping Use Never Used 09/05/25 16:40 PHQ-9: PHQ-9 Score PHQ-9: Total score 0 09/05/25 17:15 Depression Screening Interpretation: Negative Thrive Assessment: Date of Thrive Assessment Date Thrive assessed 09/05/25 09/05/25 16:40 Currently or been in a relationship where the following occur: No concerns reported Const General: no acute distress and alert HENMT Ears: TM's normal bilaterally and EAC's normal Throat: Yes posterior oropharynx normal and Yes tonsils normal (no TP congestion) Neck Neck: No lymphadenopathy and Yes tender Thyroid: Thyroid normal Resp Auscultation: clear to auscultation bilaterally, no rales and no wheezes Cardio Rate: regular rate Rhythm: regular rhythm Heart sounds: no murmurs GI Palpation (GI): Soft to palpation and nontender Auscultation: normal bowel sounds General: Yes no CVA tenderness Back/Spine/Pelvis Back: no CVA tenderness Thoracic/Lumbar Spine: No lumbar spinal tenderness Skin Rashes: no rashes Extrem General: Yes no clubbing, cyanosis or edema Coding Level of Care Code Est Pt Level 4 (36248) Diagnoses Migraine with aura, intractable, without status migrainosus G43.119 Cervical dystonia G24.3 Allergic rhinitis, unspecified seasonality, unspecified trigger J30.9 Allergic rhinitis trigger: unspecified Allergic rhinitis seasonality: unspecified Microscopic hematuria R31.29 Insomnia, unspecified type G47.00 Insomnia type: unspecified Additional Codes PHQ-9 - 12524 - PHQ-9 Billing: Yes ([id number]) Assessment & Plan Assessment & Plan (1) Migraine with aura, intractable, without status migrainosus: Comment: she has more than 50% reduction in migraines since starting treatment with botox Code(s): G43.119 - Migraine with aura, intractable, without status migrainosus Category: Medical Plan: Continue Botox injections over her scalp muscles and trapezius muscles on both sides - she gets a total of 200 units every 90 days from neurology Continue Fioricet 50-325-40 mg every 4 to 6 hours PRN (Rx refilled) and/or Sumatriptan 50 mg PRN as instructed Patient has reportedly been tried on several different migraine headaches medications in the past, including the newer ones like Ubrelvy and Qulipta, but she either could not tolerate the medications or they are ineffective (for her migraines) and that the only medications that she has been able to tolerate so far are Fioricet and Sumatriptan although her Rx quantity per prescription is limited by insurance restrictions States that she takes her Fioricet only as needed as 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 and she cannot afford to experience any sedation or decreased alertness while she is at work Follow up with neurology as scheduled (2) Cervical dystonia: Comment: spasmodic torticollis Code(s): G24.3 - Spasmodic torticollis Category: Medical Plan: Continue Botox injections over her scalp muscles and trapezius muscles on both sides with neurology - she gets a total of 200 units every 90 day Continue Cyclonenzaprine 10 mg Q HS PRN (3) Allergic rhinitis: Code(s): J30.9 - Allergic rhinitis, unspecified Category: Medical Qualifiers: Allergic rhinitis trigger: unspecified Allergic rhinitis seasonality: unspecified Qualified Code(s): J30.9 - Allergic rhinitis, unspecified Plan: Continue Fexofenadine 60 mg BID PRN (4) Microscopic hematuria: Code(s): R31.29 - Other microscopic hematuria Category: Medical Plan: Patient denies any acute urinary symptoms except for occasional sensation of incomplete voiding Follow up with urology as scheduled (5) Insomnia: Code(s): G47.00 - Insomnia, unspecified Category: Medical Qualifiers: Insomnia type: unspecified Qualified Code(s): G47.00 - Insomnia, unspecified Plan: Sleep hygiene reinforced Continue Zolpidem 10 mg Q HS PRN Plan To return as scheduled in April 2026 for her annual physical examination Will also have patient get her labs done just before she returns in April 2026 for her physical exam Orders: Orders Complete Blood Count Auto Diff 04/28/26 D64.9 - Anemia, unspecified, Z00.00 - Encounter for general adult medical examination without abnormal findings UA CC w/rflx Micro + Cult 04/28/26 R30.0 - Dysuria, Z00.00 - Encounter for general adult medical examination without abnormal findings Vitamin D 25-OH Total 04/28/26 E55.9 - Vitamin D deficiency, unspecified, Z00.00 - Encounter for general adult medical examination without abnormal findings Comprehensive [place]. Panel Fast 04/28/26 E78.00 - Pure hypercholesterolemia, unspecified, Z00.00 - Encounter for general adult medical examination without abnormal findings Lipid Panel 04/28/26 E78.00 - Pure hypercholesterolemia, unspecified, Z00.00 - Encounter for general adult medical examination without abnormal findings TSH reflex Free T4 04/28/26 E78.00 - Pure hypercholesterolemia, unspecified, Z00.00 - Encounter for general adult medical examination without abnormal findings Medications: Changed From ubbzynjvnj-jqolaczdttfil-zshm 50-325-40 mg 1 tab PO Q4H 7 days PRN 42 tabs 0RF pain To iygiamzcvb-ocfrunugrxprr-wajd 50-325-40 mg 1 tab PO Q4H PRN 60 tabs 5RF headaches
== END 2025-09-05 17:18 | disposition home or self-care (01) ==
LOC: HO.HMCH 16:27
PROVIDERS: PCP Internal Medicine; Visit Provider Internal Medicine
DX: G43.119 Migraine with aura, intractable, without status migrainosus (principal); G24.3 Spasmodic torticollis; J30.9 Allergic rhinitis, unspecified; R31.29 Other microscopic hematuria; G47.00 Insomnia, unspecified

== ENCOUNTER → 2025-09-05 16:26 | Outpatient (BNVA) | payer BC, SELFPAY | PROVIDERS: PCP Internal Medicine; Visit Provider Internal Medicine | DX: G43.119 Migraine with aura, intractable, without status migrainosus (principal); G24.3 Spasmodic torticollis; J30.9 Allergic rhinitis, unspecified; R31.29 Other microscopic hematuria; G47.00 Insomnia, unspecified; Z79.899 Other long term (current) drug therapy | CPT/HCPCS: 96127 ==